=== PATIENT | female | born 1940 | race Caucasian/White ===

== ENCOUNTER 2018-05-21 16:10 | Inpatient (IN) | payer MEDICARE ==
[~2018-05-21] VITALS: Ht 165 cm; Wt 61.7 kg
[~2018-05-21 16:10] MED LIST: ALEN70 PO; ALLO300 PO; ALPR.25 PO; ASPI81CH PO; Adalat Cc30 MG PO; CARV6.25 PO; CEPH250A PO; CEPH500 PO; COLL250TO TOP; DIGO.125 PO; EXEN5PENI SQ; FURO40 PO; GABA300 PO; Humalog100 UNIT/3 SC; INSU100I6 SC; INSULANPEN SC; LEVEMIR FL100 UNIT/1 SC; LIRA0.6P; METO50 PO; METPRE4DP PO; Micro-K10 MEQ PO; Norco 5-325 Ta1 EACH PO; OXYACE5T PO; SILSUL1TC TOP; SPIR50 PO; SULTRIDS PO; TRAM50 PO; Valium5 MG PO; [UNRECOGNIZED DRUG - OTHER]; [UNRECOGNIZED DRUG - REMARK]
[2018-05-21 19:15] LABS: BASOPHILS ABSOLUTE AUTO 0.03 K/mm3 (0.00-0.23); BASOPHILS PERCENT AUTO 0 % (0-2); EOSINOPHILS ABSOLUTE AUTO 0.08 K/mm3 (0.00-0.68); EOSINOPHILS PERCENT AUTO 1 % (0-6); Hematocrit 31.2 % (33.0-51.0); Hemoglobin 10.5 g/dL (11.5-16.0); IMMATURE GRAN ABSOLUTE AUTO 0.09 K/mm3 (0.00-0.10); IMMATURE GRAN PERCENT AUTO 1 % (0-1); LYMPHOCYTES ABSOLUTE AUTO 1.96 K/mm3 (0.84-5.20); LYMPHOCYTES PERCENT AUTO 15 % (21-46); MONOCYTES PERCENT AUTO 6 % (4-13); Mean Corpuscular HGB 30.6 pg (26.0-34.0); Mean Corpuscular HGB Conc 33.7 g/dL (31.5-36.5); Mean Corpuscular Volume 91 fL (80-100); Mean Platelet Volume 8.9 fL (9.1-12.4); NEUTROPHILS ABSOLUTE AUTO 9.95 K/mm3 (1.96-9.15); NEUTROPHILS PERCENT AUTO 77 % (41-73); Platelet Count 419 K/mm3 (150-400); RDW Coefficient Variation 12.7 % (11.7-14.2); RDW Standard Deviation 41.1 fL (35.1-46.3); Red Blood Cell Count 3.43 M/mm3 (3.80-5.20); White Blood Cell Count 12.91 K/mm3 (4.00-11.30)
[2018-05-21 19:38] LABS: Creatinine, Blood 1.05 mg/dL (0.40-1.00); Potassium, Blood 3.7 mmol/L (3.5-5.5)
[2018-05-22 05:11] LABS: Hematocrit 31.3 % (33.0-51.0); Hemoglobin 10.4 g/dL (11.5-16.0); Mean Corpuscular HGB 30.6 pg (26.0-34.0); Mean Corpuscular HGB Conc 33.2 g/dL (31.5-36.5); Mean Corpuscular Volume 92 fL (80-100); Mean Platelet Volume 9.1 fL (9.1-12.4); Platelet Count 419 K/mm3 (150-400); RDW Coefficient Variation 12.7 % (11.7-14.2); RDW Standard Deviation 42.7 fL (35.1-46.3); White Blood Cell Count 11.05 K/mm3 (4.00-11.30)
[2018-05-22 05:41] LABS: Anion Gap 7 mmol/L (6-16); Blood Urea Nitrogen 23 mg/dL (8-24); Bun/Creatinine Ratio 21.7 (12.0-20.0); CO2, Blood 27 mmol/L (21-32); Calcium, Blood 8.6 mg/dL (8.5-10.1); Chloride, Blood 101 mmol/L (98-108); Creatinine, Blood 1.06 mg/dL (0.40-1.00); Glomerular Filtration Rate 54 (60-); Glucose, Blood 172 mg/dL (70-99); Potassium, Blood 3.4 mmol/L (3.5-5.5); Sodium, Blood 135 mmol/L (136-145)
[2018-05-22 05:50] LABS: Digoxin (Lanoxin) 0.13 ug/mL (0.80-2.00)
[2018-05-23 21:48] LABS: Vancomycin, Trough 8.4 ug/mL (5.0-10.0)
[2018-05-24] MEDS ORDERED: HYDR1TAB94 PO (11:14)
[2018-05-24] MEDS ORDERED: CEPH250A PO (11:14)
== END 2018-05-24 11:43 | disposition home or self-care (01) | DRG 256 ==
LOC: ER 16:10 → MEDS 17:23 → ER 19:49 → MEDS 19:49 → ENPENDDIS 05-24 09:51 → MEDS 05-24 11:43
PROVIDERS: Emergency Medicine; Internal Medicine; Podiatrist Foot & Ankle Surgery
PROC: 0Y6U0Z0 Detachment at Left 3rd Toe, Complete, Open Approach (ICD-10-PCS; 2018-05-23)
PROC: 0Y6S0Z0 Detachment at Left 2nd Toe, Complete, Open Approach (ICD-10-PCS; 2018-05-23)
PROC: 0Y6Q0Z3 Detachment at Left 1st Toe, Low, Open Approach (ICD-10-PCS; principal; 2018-05-23 12:00)
DX: E11.52 Type 2 diabetes mellitus with diabetic peripheral angiopathy with gangrene (principal); I96 Gangrene, not elsewhere classified; I50.22 Chronic systolic (congestive) heart failure; L97.528 Non-pressure chronic ulcer of other part of left foot with other specified severity; E11.621 Type 2 diabetes mellitus with foot ulcer; E11.65 Type 2 diabetes mellitus with hyperglycemia; E11.42 Type 2 diabetes mellitus with diabetic polyneuropathy; I25.5 Ischemic cardiomyopathy; I25.10 Atherosclerotic heart disease of native coronary artery without angina pectoris; F17.210 Nicotine dependence, cigarettes, uncomplicated; E78.5 Hyperlipidemia, unspecified; M10.9 Gout, unspecified; I25.2 Old myocardial infarction; Z91.81 History of falling; Z87.440 Personal history of urinary (tract) infections; Z79.899 Other long term (current) drug therapy; Z79.4 Long term (current) use of insulin; Z79.82 Long term (current) use of aspirin; Z88.8 Allergy status to other drugs, medicaments and biological substances; Z88.2 Allergy status to sulfonamides; Z95.0 Presence of cardiac pacemaker; Z90.710 Acquired absence of both cervix and uterus; Z90.49 Acquired absence of other specified parts of digestive tract; Z98.42 Cataract extraction status, left eye; Z98.41 Cataract extraction status, right eye; Z95.5 Presence of coronary angioplasty implant and graft; Z86.73 Personal history of transient ischemic attack (TIA), and cerebral infarction without residual deficits
CPT/HCPCS: 36415; 71046; 73630; 80048; 80162; 80202; 82947; 83036; 85025; 85027; 93005; 93010; 93922; 96365; 99284-25; J1100; J1650; J2250; J2405; J2543; J3010; J3370; J7120

== ENCOUNTER → 2018-06-22 | Outpatient (CLI) | payer MEDICARE ==
[~2018-06-22] MED LIST changes: +HYDR1TAB94 PO
== END | disposition home or self-care (01) ==
LOC: LAB SHORT 13:50 → LAB 13:50
DX: N18.3 Chronic kidney disease, stage 3 (moderate) (principal); N39.0 Urinary tract infection, site not specified
CPT/HCPCS: 87077; 87086; 87186

== ENCOUNTER 2018-09-19 14:54 | Inpatient (IN) | payer MEDICARE ==
[~2018-09-19] VITALS: Ht 165.1 cm; Wt 61.1 kg
[2018-09-19 18:27] LABS: Source, Urine Clean Catch
[2018-09-19 18:32] LABS: Appearance, Urine Hazy (Clear); Bilirubin, Urine Neg (Neg); Blood, Urine 2+ (Neg); Color, Urine Yellow (P-Yellow); Glucose Qualitative, Urine 4+ (Neg); Ketones, Urine 3+ (Neg); Leukocyte Esterase, Urine 3+ (Neg); Nitrite, Urine Neg (Neg); Protein, Urine 4+ (Neg); Urobilinogen, Urine NORM (Normal)
[2018-09-19 19:04] LABS: Bacteria Many /hpf; Squamous Epithelial Cells Few /hpf (Few); White Blood Cells, Urine 50-100 /hpf (0-5)
[2018-09-19 19:56] LABS: BASOPHILS ABSOLUTE AUTO 0.03 K/mm3 (0.00-0.23); BASOPHILS PERCENT AUTO 0 % (0-2); EOSINOPHILS ABSOLUTE AUTO 0.04 K/mm3 (0.00-0.68); EOSINOPHILS PERCENT AUTO 0 % (0-6); Hemoglobin 11.7 g/dL (11.5-16.0); IMMATURE GRAN ABSOLUTE AUTO 0.04 K/mm3 (0.00-0.10); IMMATURE GRAN PERCENT AUTO 0 % (0-1); LYMPHOCYTES ABSOLUTE AUTO 1.05 K/mm3 (0.84-5.20); LYMPHOCYTES PERCENT AUTO 11 % (21-46); MONOCYTES ABSOLUTE AUTO 0.71 K/mm3 (0.16-1.47); MONOCYTES PERCENT AUTO 7 % (4-13); Mean Corpuscular HGB 28.6 pg (26.0-34.0); Mean Corpuscular HGB Conc 31.6 g/dL (31.5-36.5); Mean Corpuscular Volume 91 fL (80-100); Mean Platelet Volume 9.7 fL (9.1-12.4); NEUTROPHILS ABSOLUTE AUTO 7.68 K/mm3 (1.96-9.15); NEUTROPHILS PERCENT AUTO 81 % (41-73); Platelet Count 255 K/mm3 (150-400); RDW Standard Deviation 56.1 fL (35.1-46.3); Red Blood Cell Count 4.09 M/mm3 (3.80-5.20); White Blood Cell Count 9.55 K/mm3 (4.00-11.30)
[2018-09-19 20:15] LABS: Alanine Aminotransfer (ALT/SGP 10 U/L (12-78); Albumin, Blood 2.7 g/dL (3.4-5.0); Albumin/Globulin Ratio 0.7 (0.8-1.8); Alk Phos 77 U/L (50-136); Anion Gap 14 mmol/L (6-16); Aspartate Aminotrans (AST/SGOT 8 U/L (12-37); Bilirubin, Total 0.7 mg/dL (0.1-1.0); Blood Urea Nitrogen 16 mg/dL (8-24); Bun/Creatinine Ratio 21.9 (12.0-20.0); CO2, Blood 22 mmol/L (21-32); Calcium, Blood 8.9 mg/dL (8.5-10.1); Chloride, Blood 94 mmol/L (98-108); Creatinine, Blood 0.73 mg/dL (0.40-1.00); Globulin, Blood 3.8 g/dL (2.2-4.0); Glomerular Filtration Rate >60 (60-); Glucose, Blood 342 mg/dL (70-99); Sodium, Blood 130 mmol/L (136-145); Total Protein, Blood 6.5 g/dL (6.4-8.2)
[2018-09-19 20:38] LABS: Digoxin (Lanoxin) 0.07 ug/mL (0.80-2.00)
[2018-09-20 05:15] LABS: BASOPHILS ABSOLUTE AUTO 0.03 K/mm3 (0.00-0.23); BASOPHILS PERCENT AUTO 0 % (0-2); EOSINOPHILS ABSOLUTE AUTO 0.08 K/mm3 (0.00-0.68); EOSINOPHILS PERCENT AUTO 1 % (0-6); Hemoglobin 11.5 g/dL (11.5-16.0); IMMATURE GRAN ABSOLUTE AUTO 0.04 K/mm3 (0.00-0.10); IMMATURE GRAN PERCENT AUTO 1 % (0-1); LYMPHOCYTES ABSOLUTE AUTO 1.61 K/mm3 (0.84-5.20); LYMPHOCYTES PERCENT AUTO 19 % (21-46); MONOCYTES ABSOLUTE AUTO 0.85 K/mm3 (0.16-1.47); MONOCYTES PERCENT AUTO 10 % (4-13); Mean Corpuscular HGB 28.8 pg (26.0-34.0); Mean Corpuscular HGB Conc 31.9 g/dL (31.5-36.5); Mean Corpuscular Volume 90 fL (80-100); NEUTROPHILS ABSOLUTE AUTO 6.07 K/mm3 (1.96-9.15); NEUTROPHILS PERCENT AUTO 70 % (41-73); RDW Coefficient Variation 16.8 % (11.7-14.2); RDW Standard Deviation 55.5 fL (35.1-46.3); White Blood Cell Count 8.68 K/mm3 (4.00-11.30)
[2018-09-20 05:17] LABS: Mean Platelet Volume 10.7 fL (9.1-12.4); Platelet Count 209 K/mm3 (150-400)
[2018-09-20 05:49] LABS: International Normalized Ratio 1.2; Prothrombin Time Results 12.2 Sec (9.7-11.5)
[2018-09-20 05:51] LABS: Anion Gap 12 mmol/L (6-16); Blood Urea Nitrogen 17 mg/dL (8-24); Bun/Creatinine Ratio 23.2 (12.0-20.0); CO2, Blood 22 mmol/L (21-32); Calcium, Blood 8.2 mg/dL (8.5-10.1); Chloride, Blood 99 mmol/L (98-108); Creatinine, Blood 0.73 mg/dL (0.40-1.00); Glomerular Filtration Rate >60 (60-); Glucose, Blood 374 mg/dL (70-99); Potassium, Blood 3.7 mmol/L (3.5-5.5); Sodium, Blood 133 mmol/L (136-145)
--- NOTE | 2018-09-20 07:52 | NUR ---
SHIFT SUMMARY PATIENT ARRIVED TO UNIT AT 2044. PATIENT DID NOT WANT TO BE ADMITTED AND WAS UNCOOPERATIVE TO CARE ATTEMPTS. STATED SHE JUST WANTED TO SLEEP. GOT UPSET AND BATTED AT THIS RN DURING ANY CARE ATTEMPTS (I.E. FLUSHING IV/INSULIN COVERAGE). PATIENT HAS ACTIVE NECROTIC APPEARING WOUNDS ON BLE LEFT>RIGHT. DRESSED WITH XEROFORM AND KERLEX. ONLY WEEPED DURING CLEANING BUT HAS ACTIVE BLEEDING ON RIGHT TOE. DID NOT BLEED THROUGH DRESSING OVERNIGHT. RN NOTIFIED OF PHOTOS IN CHART AND PODIATRY CONSULT REQUIRING DOC-DOC. HOSPITALIST NOTIFIED ALSO.
--- NOTE | 2018-09-20 17:51 | NUR ---
PT IS AOX3 WITH SOME CONFUSION AT TIMES THIS IS OFF AND ON. PT HAS BEEN COOPATIVE OF CARE AND RESTING IN HER BED ALL DAY. PT STATES SHE IS FEELING TIRED, BUT HAS NOT BEEN SLEEPING MUCH SHE DID THE FIRST PART OF THE SHIFT. NO DISTRESS NOTED AT THIS TIME.
--- NOTE | 2018-09-21 05:46 | NUR ---
SHIFT SUMMARY NO CHANGES IN ASSESSMENT AT THIS TIME. PT DID NOT VOID THIS SHIFT & REFUSED TO GET UP & TRY IN THE BATHROOM. WOUND DRESSINGS C/D/I. VSS. WILL CONTINUE TO MONITOR UNTIL TURNOVER IS COMPLETE.
[2018-09-21 16:44] LABS: Vancomycin, Trough 11.9 ug/mL (5.0-10.0)
--- NOTE | 2018-09-21 17:52 | NUR ---
SHIFT SUMMARY PT UP TO BATHROOM WITH 1 PERSON ASSIST USING FWW AND GAITBELT WHEN SHE ALLOWS IT TO BE PLACED. DIARRHEA NOTED. SPOKE WITH MD WITH NO NEW ORDERS. PT REPORTS HAVING IT FOR LAST 16 YEARS. FRIEND IN TO SEE TWICE TODAY WITH HER DOG. DRESSINGS CHANGED TO BOTH FEET.
--- NOTE | 2018-09-22 04:39 | NUR ---
VSS, AFEBRILE, A/O, 20G R UA. 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 C/O BEING "LONELY" AND CALLS OFTEN FOR NO REASON. INCONT AT TIMES, CAN BE NEEDY
--- NOTE | 2018-09-22 18:14 | NUR ---
SHIFT SUMMARY FOOT DRESSINGS REPLACED TO FEET AFTER US COMPLETED. PREMEDICATED FOR PROCEDURE AND TOLERATED WITHOUT PROBLEM. HAS MOSTLY SEROUS DRAINAGE FROM WOUNDS TO TOE SITES. POST OP BOOTS USED WITH AMBULATING. RECEIVED A SHOWER THIS MORNING AND TOLERATED WITHOUT PROBLEM. URGE INCONTINENCE OF URINE AND BLADDER. APPEARS MORE FORGETFUL TODAY THAN YESTERDAY. 1 PERSON ASSIST USING A FWW WITH AMBULATION. REQUIRES CUING WITH USE AND REMINDING FOR PROPER BODY MECHANICS. POSSIBLE PROCEDURE TOMORROW WITH INTERVENTIONAL RADIOLOGIST. DR LOCKHART REPORTS IN CONSULT NOTE THAT HE NOTIFIED MD. PT COOPERATIVE WITH CARE.
--- NOTE | 2018-09-23 04:38 | NUR ---
VSS, AFEBRILE, A/O, NPO AFTER MID FOR SURGICAL PROCEDURE ON L FOOT TODAY, AMB W/FWW, PACER, NECROTIC R FOOT, REFUSING CARE/MEDS AT TIMES, APATHETIC ABOUT HER NEEDS, PT MUST WEAR POST OP BOOTS WHEN OOB, CHRONIC DIARRHEA, AMPUATATIONS ON L FOOT ALREADY, SLOAN C/D/I
--- NOTE | 2018-09-23 04:52 | NUR ---
PT HAS REMOVED HER IV ACCESS. SHE STATES THAT SHE DID IT IN HER SLEEP. PT WILL NEED A NEW ACCESS FOR THE SURGICAL PROCEDURE TODAY. WILL REPORT TO ON-COMING SHIFT
--- NOTE | 2018-09-23 13:08 | NUR ---
TRANSFER FROM [facility] TECHNICIAN PATIENT TRANSFERED TO ICU POST PERIPHERAL STENTING OF SFA. SHEATH STILL IN PLACE. PATIENT IS DROWSY AND A LITTLE CONFUSED BUT ABLE TO REORIENT. GROIN SITE SOFT. BOTH FEET WRAPPED WITH KERLEX AND PITA WRAP. DR. NAVA REQUESTING DRESSINGS TO NOT BE REMOVED. PLAN TO DRAW PTT AND PULL SHEATH WHEN WITHIN RANGE. WILL CONTINUE TO MONITOR GROIN SITE. WILL NOTIFY PHYSICIANS OF ANY CHANGES. WILL ENCOURAGE PATIENT TO REST AT THIS TIME.
--- NOTE | 2018-09-23 14:30 | NUR ---
RECEIVED REPORT FROM GUNJAN, ENDOSCOPY RN, AND ASSUMED CARE OF PT. PATIENT IS ALERT, CONFUSED, HAS A CONTAINER OF FOOD EATING AND LIFTING HEAD. REMINDED PT THAT SHE SHOULD NOT BE LIFTING HEAD AND REMOVED THE FOOD. INSTRUCTED PT THAT SHE WILL BE ABLE TO EAT ONCE SHE RECOVERS FROM THE SURGICAL SITE AND IS ABLE TO SIT UP. SHEATH IN PLACE TO RIGHT GROIN, NO S/S OF BLEEDING OR HEMATOMA. INSTRUCTED PT TO REMAIN STILL WITHOUT LIFTING HEAD OR RIGHT LEG. BILATERAL FEET WRAPPED IN GUAZE DRESSING, NOTED PICTURES IN CHART. DR. NAVA AT BEDSIDE FOR EVALUATION AND ADVISED NO NEED TO REMOVE DRESSINGS WOUND CARE HAS BEEN CHANGING THEM. DR. SALGADO STATED THAT THREE STENTS WERE PLACED IN THE SFA OF THE RIGHT LEG TO KEEP THE VEIN OPEN FOR IMPROVED CIRCULATION. DOPPLER PULSES, UNABLE TO HEAR PULSES ON RIGHT SIDE, DR. NAVA AWARE. NEW ORDER FOR FENTANYL, GIVE A DOSE NOW IN PREPARATION FOR HEART CENTER COMING TO THE BEDSIDE TO PULL THE SHEATH SOON. LUNGS CLEAR, SATS 97% ROOM AIR. VSS. DELANEY IN PLACE DRAINING CLEAR YELLOW URINE. PT IS MILDLY CONFUSED, FORGETFUL, REQUIRES REMINDERS TO REMAIN IN STILL POSITION, HAS ATTEMPTED TO SIT UP IN BED. AWAITING PTT RESULTS TO DETERMINE IF SHEATH CAN BE PULLED.
--- NOTE | 2018-09-23 15:00 | NUR ---
HEART CENTER RN'S AT BEDSIDE TO PULL THE SHEATH IN THE RIGHT GROIN. NO S/S OF BLEEDING OR HEMATOMA.
--- NOTE | 2018-09-23 15:32 | NUR ---
HEART CENTER PULLED SHEATH AND HELD PRESSURE TO RIGHT GROIN FOR 20 MINUTES. THEY APPLIED GUAZE WITH TRANSPARENT DRESSING, NOTED SCANT AMOUNT OF BLOODY DRAINAGE ON GUAZE, NO S/S OF BLEEDING OR HEMATOMA.
--- NOTE | 2018-09-23 16:55 | NUR ---
NURSING SUMMARY RIGHT GROIN SITE CDI, NO S/S OF BLEEDING OR HEMATOMA. ELEVATED HOB TO 30 DEGREES. PATIENT FOLLOWS DIRECTIONS MOST OF THE TIME, ON OCCASSION PT WILL LIFT HER HEAD AND MOVE HER LEGS, FREQUENT EDUCATION REINFORCEMENT REGARDING COMPLIANCE WITH RECOVERY. C/O PAIN TO LEFT UPPER LEG, MEDICATED WITH FENTANYL WITH GOOD RELIEF. PATIENT STATES SHE IS HUNGRY.
--- NOTE | 2018-09-23 19:15 | NUR ---
ASSUMING CARE OF PT AT THIS TIME. PT REPORT RECEIVED AT BEDSIDE WITH OFFGOING NURSE, EVA CLEMONS. PT LAYING IN BED, WATCHING TELEVISION AND TALKING WITH STAFF UPON ENTERING THE ROOM. VS STABLE - SEE VS FS. PT DOES NOT APPEAR TO BE IN DISTRESS AT THIS TIME. WILL REVIEW PLAN OF CARE.
--- NOTE | 2018-09-23 19:30 | NUR ---
ASSESSMENT PT RESPONDS TO VERBAL STIMULI, A&O EXCEPT TO DATE/TIME (PT STATES YEAR IS 1978), SLIGHT CONFUSION, FORGETFUL, REPEATS QUESTIONS, SLOW TO RESPOND, FOLLOWS COMMANDS. SENSATION INTACT BUE'S. NUMBNESS BLE'S. HX OF NEUROPATHY. PT C/O WEAKNESS BLE'S. PT ASSISTS WITH TURNS. PER REPORT - PT USES WALKER AT HOME. PT C/O PAIN IN LEFT GROIN SITE AND LEG LEG - MEDICATED WITH PAIN MEDS PER PHYSICIAN'S ORDER / UTILIZED NONPHARM METHODS. FALL RISK PRECAUTIONS. LUNGS CLEAR, LOWER LOBES DIMINIHSED. SHALLOW BREATHING. PT ON RA. OXY SWAT >90% RR 14. DENIES SOB. NO COUGHING. SHALLOW BREATHING. AFEBRILE. NSR. HR 90'S. BP STBALE - SEE VS FS. STRONG RADIAL PULSE. FAINT TIBIAL PULSE. UNABLE TO DOPPLER PEDAL PULSES D/T BLE'S DRESSINGS. PER REPORT FROM DEONTE VELASQUEZ - DO NOT REMOVE BLE'S DRESSINGS THIS PM. SHEATH REMOVED THIS AM FORM R GROIN. R GROIN SITE - SMALL AMOUNTS OF SEROSANGEOUS FLUID, NO HEMATOMA, NO S/SX OF INFECTION, SLIGHT TENDERNESS WITH PALPATION, NO BRUISING. CONT TO EDUCATE PT ABOUT SHEATH REMOVAL PRECAUTIONS. SKIN WARM, PALE. ACTIVE BT X4 QUADRANTS. ABD SOFT, NONTENDER. NO N/V. NO BM. PT TOLERATES PO FLUIDS AND ADA DIET. F/C IN PLACE - YELLOW, CLEAR URINE NOTED. PIV X1 - SL. PT REFUSES ADDITION PIV INSERTION.
[2018-09-23 20:58] LABS: Creatinine, Blood 0.95 mg/dL (0.40-1.00); Vancomycin, Trough 11.8 ug/mL (5.0-10.0)
[2018-09-24 03:32] LABS: BASOPHILS ABSOLUTE AUTO 0.05 K/mm3 (0.00-0.23); BASOPHILS PERCENT AUTO 1 % (0-2); EOSINOPHILS ABSOLUTE AUTO 0.14 K/mm3 (0.00-0.68); EOSINOPHILS PERCENT AUTO 2 % (0-6); Hematocrit 33.3 % (33.0-51.0); Hemoglobin 10.5 g/dL (11.5-16.0); IMMATURE GRAN ABSOLUTE AUTO 0.03 K/mm3 (0.00-0.10); IMMATURE GRAN PERCENT AUTO 0 % (0-1); LYMPHOCYTES ABSOLUTE AUTO 1.25 K/mm3 (0.84-5.20); LYMPHOCYTES PERCENT AUTO 15 % (21-46); MONOCYTES ABSOLUTE AUTO 0.76 K/mm3 (0.16-1.47); MONOCYTES PERCENT AUTO 9 % (4-13); Mean Corpuscular HGB 28.3 pg (26.0-34.0); Mean Corpuscular HGB Conc 31.5 g/dL (31.5-36.5); Mean Corpuscular Volume 90 fL (80-100); NEUTROPHILS ABSOLUTE AUTO 5.97 K/mm3 (1.96-9.15); NEUTROPHILS PERCENT AUTO 73 % (41-73); Platelet Count 230 K/mm3 (150-400); RDW Coefficient Variation 16.8 % (11.7-14.2); RDW Standard Deviation 55.2 fL (35.1-46.3); Red Blood Cell Count 3.71 M/mm3 (3.80-5.20)
[2018-09-24 03:48] LABS: Bun/Creatinine Ratio 24.5 (12.0-20.0); Calcium, Blood 8.4 mg/dL (8.5-10.1); Creatinine, Blood 1.06 mg/dL (0.40-1.00); Potassium, Blood 4.6 mmol/L (3.5-5.5)
--- NOTE | 2018-09-24 04:25 | NUR ---
DR. WRIGHT INFORMED DR. WRIGHT OF AM LABS AND MEDICATION LIST. DR. WRIGHT ORDERED HUMALOG ANNELIESE AC/HS, HUMALOG ANNELIESE NOW, REPEAT RENAL PANEL AT 1200 ON 09/24/18 D/T DECREASING SODIUM, AND REPEAT CHEMBG 2 HR AFTER ADMINSITERING HUMALOG ANNELIESE NOW. WAITING FOR HUMALOG PEN FROM PHARMACY AT THIS TIME.
--- NOTE | 2018-09-24 04:34 | NUR ---
SHIFT ASSESSMENT NO ACUTE CHANGES NOTED T/O SHIFT. PT SLEPT APPROXIMATELY 3 HOURS T/O SHIFT. PT RESOPNDS TO VERBAL STIMULI, A&O EXCEPT TO DATE/TIME (PT STATES YEAR IS ), SLIGHT OCNFUSION, FORGETFUL, REPEATS QUESTIONS, SLOW TO RESPOND, FOLLOWS COMMANDS. SENSATIO INTACT BUE'S. NUMBNESS BLE'S. HX OF NEUROPATHY. NORMAL STRENGTH BUE'S. PT C/O WEAKNESS BLE'S. PT ASSISTS WITH TURNS. PT AMBULATES WITH 2P SBA. PT DENIES AMBULATING WITH WALKER OR CANE AT HOME. PT C/O INCREASING DIFFICULTIES COMPLETING ADL'S AT HOME. PT C/O PAIN IN LEFT GROIN SITE AND LEFT LEG T/O SHIFT. CONTINUED TO ASSESS FOR PAIN/DISCOMFORT AND MEDICATED WITH PAIN MEDS PER PHYSICIAN'S ORDER / UTILIZED NONPHARM METHODS. FALL RISK PRECAUTIONS. LUNGS CLEAR, LOWER LOBES DIMINISHED. SHALLOW BREATHING. PT ON RA. OXY SAT >90%. RR 12 TO 20'S. DENIES SOB. NO COUGHING. AFEBRILE. NSR TO ST WITH BBB. HR 80'S TO 100'S. BP STABLE - SEE VS FS. STRONG RADIAL PULSES. FAINT TIBIAL AND PEDAL PULSES. PER REPORT - DID NOT REMOVE BLE'S DRESSING THIS SHIFT. SHEATH REMOVED YESTERDAY DAYSHIFT FROM R GROIN. R GROIN SITE - SMALL AMOUNTS OF SEROSANGEOUS FLUID, NO HEMATOMA, NO S/SX OF INJECTION, SLIGHT TENDERNESS WITH PALPATION, NO BRUISING. SKIN WARM, PALE. ACTIVE BT X4 QUADRANTS. ABD SOFT, NONTENDER. NO N/V. NO BM. PT TOLERATES PO FLUIDS AND ADA DIET. F/C IN PLACE - YELLOW, CLEAR URINE NOTED. PIV X1 - SL. PT REFUSES ADDITIONAL PIV INSERTION. PLACED SEVERAL MEPILEX DRESSING TO EXTREMETIES D/T PT PICKING AT SCABS. CONT TO EDUCATE PT ABOUT PICKINGS AT SCABS, BUT PT CONT TO PICK AT SCABS. WILL CONT TO MONITOR PT AND WILL PROVIDE BEDSIDE REPORT TO ONCOMING NURSE THIS AM.
--- NOTE | 2018-09-24 07:30 | NUR ---
ASSUMED CARE OF PATIENT; SEE ASSESSMENT FOR DETAILS. LUNGS CLEAR; DECREASED IN BASES. APPEARS ALERT/COOPERATIVE AT THIS TIME; ORIENTED TO SELF AND PERSON AND PLACE; SHORT TERM MEMORY SOMEWHAT LIMITED; SL. CONFUSED AT TIMES. DELANEY TO GRAVITY AND DRAINING CLEAR, YELLOW URINE. OVERALL STATUS IMPROVED. LE'S REMAIN PAINFUL TO TOUCH ETC. CBG READING REQUIRED 4U OF NOVOLOG AND WILL RECEIVE ROUTINE LANTUS DOSE. APPETITE FAIR; NO GI UPSET.
--- NOTE | 2018-09-24 09:40 | NUR ---
DR. RONDON HERE; SEE ORDERS.
--- NOTE | 2018-09-24 10:00 | NUR ---
VISITORS; COOPERATIVE. UP TO BEDSIDE COMMODE WITH 1 PERSON ASSIST., HAD LARGE SOFT, BROWN-FORMED STOOL. VERY SLOW WITH GETTING TO DANGLE POSITION AND IN/OUT OF BED; DISLIKES ASSIST. FROM STAFF, BUT WILL ACCEPT IT WHEN NECESSARY.
--- NOTE | 2018-09-24 12:00 | NUR ---
CBG 240'S; COVERED PER MEDIUM SLIDING SCALLE. APPETITE LIMITED.
[2018-09-24 12:49] LABS: Albumin, Blood 2.2 g/dL (3.4-5.0); Anion Gap 9 mmol/L (6-16); Blood Urea Nitrogen 25 mg/dL (8-24); Bun/Creatinine Ratio 21.9 (12.0-20.0); CO2, Blood 24 mmol/L (21-32); Calcium, Blood 8.6 mg/dL (8.5-10.1); Chloride, Blood 97 mmol/L (98-108); Creatinine, Blood 1.14 mg/dL (0.40-1.00); Glomerular Filtration Rate 49 (60-); Glucose, Blood 254 mg/dL (70-99); Phosphorus, Blood 3.5 mg/dL (2.5-4.9); Potassium, Blood 4.1 mmol/L (3.5-5.5); Sodium, Blood 130 mmol/L (136-145)
--- NOTE | 2018-09-24 15:35 | NUR ---
REPORT GIVEN TO DEONTE ROBLES; PATIENT TO TRANSFER TO ROOM 339 (MEDICAL WITH NO TELEMETRY).
--- NOTE | 2018-09-24 16:00 | NUR ---
TRANSFERRED TO MEDICAL FLOOR, ROOM 339, VIA BED; BELONGINGS, MEDS., AND CHART WITH PATIENT. ZONING ENGINEER TRANSPORTED PATIENT; NO ACUTE C/O.
--- NOTE | 2018-09-24 16:39 | NUR ---
PATIENT TRANSFER THE PATIENT WAS TRANSFERRED FROM THE ICU TO THE MEDICAL FLOOR, TO ROOM #339 AT 1610. THE ICU NURSECALLED REPORT BEFORE THE PATIENT WAS TRANSFERRED TO THE FLOOR. THE PATIENT IS A&O TO SELF, A ONE PERSON ASSIST. THE PATIENT COMPLAINED OF BEING COLD AND REQUESTED A WARM BLANKET. THE PATIENT IS RESTING AT THIS TIME WATCHING WATCHING TV, WILL CONTINUE TO MONITOR.
--- NOTE | 2018-09-25 00:07 | NUR ---
CBG 74; LANTUS 15 UNITS EVENING 21:00 DOSE HELD PER HOSPITALIST . WILL CONTINUE TO MONITOR.
--- NOTE | 2018-09-25 04:19 | NUR ---
SHIFT SUMMARY PATIENT HAS LANTUS BID. CBG 74 AND EVENING 21:00 LANTUS 15 UNIT DOSE HELD PER HOSPITALIST DR. RICHARDS. NOTE, CBG'S DECREASED T/O THE DAY. AXOX 3 AND SBA TO BSC. PIV REMAINS INTACT. IV ABX INFUSED. DELANEY PATENT AND DRAINING. DENIES PAIN, SOB, AND N/V. VSS/AFEBRILE. BED IN LOWEST POSITION. CALL LIGHT IN REACH. WILL CONTINUE TO MONITOR UNTIL DAY SHIFT NURSE ASSUMES CARE.
[2018-09-25 07:56] LABS: BASOPHILS ABSOLUTE AUTO 0.05 K/mm3 (0.00-0.23); BASOPHILS PERCENT AUTO 1 % (0-2); EOSINOPHILS ABSOLUTE AUTO 0.14 K/mm3 (0.00-0.68); EOSINOPHILS PERCENT AUTO 2 % (0-6); Hematocrit 33.3 % (33.0-51.0); Hemoglobin 10.3 g/dL (11.5-16.0); IMMATURE GRAN ABSOLUTE AUTO 0.06 K/mm3 (0.00-0.10); IMMATURE GRAN PERCENT AUTO 1 % (0-1); LYMPHOCYTES ABSOLUTE AUTO 1.53 K/mm3 (0.84-5.20); LYMPHOCYTES PERCENT AUTO 19 % (21-46); MONOCYTES ABSOLUTE AUTO 1.07 K/mm3 (0.16-1.47); MONOCYTES PERCENT AUTO 13 % (4-13); Mean Corpuscular HGB 27.7 pg (26.0-34.0); Mean Corpuscular HGB Conc 30.9 g/dL (31.5-36.5); Mean Corpuscular Volume 90 fL (80-100); Mean Platelet Volume 10.4 fL (9.1-12.4); NEUTROPHILS ABSOLUTE AUTO 5.34 K/mm3 (1.96-9.15); NEUTROPHILS PERCENT AUTO 65 % (41-73); Platelet Count 230 K/mm3 (150-400); RDW Coefficient Variation 16.9 % (11.7-14.2); Red Blood Cell Count 3.72 M/mm3 (3.80-5.20); White Blood Cell Count 8.19 K/mm3 (4.00-11.30)
[2018-09-25 08:07] LABS: Calcium, Blood 8.7 mg/dL (8.5-10.1); Creatinine, Blood 1.1 mg/dL (0.40-1.00); Potassium, Blood 4.1 mmol/L (3.5-5.5)
--- NOTE | 2018-09-25 13:25 | NUR ---
SHE HAS BEEN MEDICATED X2 THIS SHIFT SO FAR WITH TRAMADOL FOR PAIN IN HER BACK AND MOSTLY IN HER L GROIN AND THIGH. HER R GROIN ANGIO SITE IS WITHOUT A DRESSING. IT IS WNL, NO HEMATOMA. I CHANGED DRESSINGS ON BITH FEET. SEE WOUND CARE ASSESSMENT. SHE TOLERATED IT WELL. RHETT WAS DC'D AT 1145 PER HER REQUEST. URINE WAS CLOUDY. SHE HAD URGENT INCONTINENT STOOL THIS AM. SHE HAS WALKED TO THE BATHROOM X2 WITH ASSIST. CBG'S VARIED, 87 AND 252.
--- NOTE | 2018-09-25 17:48 | NUR ---
SHE IS VOIDING WELL SINCE DELANEY DC'D JUST BEFORE LUNCH. THE FIRST VOID WAS UNMEASURED BECAUSE WE DID NOT HAVE A VOID HAT IN THE TOILET YET. SHE SAYS HER L LEG PAIN WAS BETTER IMMEDIATELY AFTER THE STENT WAS PLACED THEN RETURNED BACK TO HOW IT WAS BEFORE. TRAMADOL HELPS. CBG'S CLIMBED THE DAY PROGRESSED. SS WAS DECREASED THIS AM. VSS. DRESSINGS CHANGED ON BOTH FEET THIS AM.
[2018-09-25 21:34] LABS: Vancomycin, Trough 21.2 ug/mL (5.0-10.0)
--- NOTE | 2018-09-25 22:40 | NUR ---
CRITICAL VANCO TROUGH RECIEVED CALL FROM LAB REPORTING CRITICAL HIGH VANCO TROUGH OF 21.2. REPORTED HIGH TROUGH TO PHARMACIST WHO SAID THEY WILL HOLD PT'S 2200 DOSE OF VANCOMYCIN.
--- NOTE | 2018-09-26 05:18 | NUR ---
SUMMER COUNSELOR SUMMARY NO ACUTE CHANGES THIS SHIFT. PT AAOX4 AND COOPERATIVE WITH CARE. VERY PLEASANT. PT DENIES PAIN ON WOUND SITES OF BILATERAL FEET. DRESSINGS C/D/I. 2200 DOSE OF VANCO HELD DUE TO CRITICAL HIGH VANCO TROUGH; PHARMACIST AWARE. PER DAY SHIFT RN PT HAD SEVERAL HEAVY VOIDS DURING DAY SHIFT AFTER DELANEY CATH WAS REMOVED. PT HAS NOT HAD A VOID THIS SHIFT, HOWEVER BLADDER SCAN SHOWED JUST OVER 200 ML. PT STATES SHE USUALLY VOIDS LATER IN THE MORNING AFTER SHE WAKES UP AND THAT IT'S "NORMAL FOR ME TO NOT PEE THROUGH THE NIGHT". NO COMPLAINTS FROM THE PT. VSS, WILL CONTINUE TO MONITOR.
[2018-09-26 05:39] LABS: Vancomycin, Random 17.6 ug/mL
--- NOTE | 2018-09-26 13:51 | NUR ---
SHE IS A LITTLE CONFUSED TODAY. I DID NOT NOTICE CONFUSION YESTERDAY. SHE APPEARS PALE AND FRAGILE. SHE PICKS AT HER SKIN. SHE SAYS SHE CANNOT HELP HERSELF. THE FOAM BANDAGE IS STILL ON HER R LEG NEAR HER KNEE. BOTH FOOT DRESSINGS CLEAN AND INTACT. SHE HAS BEEN NPO SINCE 844 FOR HEART CENTER. SHE IS SUPPOSE TO HAVE STEP 2 OF HER PERIPHERAL STENTING TODAY. LAST CBG 176. HER SON IS HERE FROM [facility]. THE CARE MANAGERS SPOKE WITH KIRA AND THE PATIENT.
--- NOTE | 2018-09-26 15:14 | NUR ---
AND JUST ROUNDED ON HER WITH SON AT BEDSIDE. SHE HAS AGREED TO REHAB WHEN DISCHARGED. TO [facility] NOW VIA BED. NO CHANGES.
--- NOTE | 2018-09-26 19:38 | NUR ---
Arrival: Pt arrived to unit from ED at approx 1740. VSS. In no apparent sign of distress. Pt is confused. Denies any pain. Pt attempting to move L leg - secured leg w/linen to minimize movement of L leg. Pt calls appropriately. On RA. Breathing e/u. Denies SOB or cough. Denies any n/t or n/v. Bilat lower extremities wrapped with cast wrap and isabella wrap - dressings changed today per med floor RN. Pedal pulses just barely palpable. L groin access site - no s/sx of bleed or hematoma. Bed alarm on. Pt denies any further questions, complaints or requests at this time. Report given to jose CLEMONS.
[2018-09-27 04:05] LABS: BASOPHILS ABSOLUTE AUTO 0.04 K/mm3 (0.00-0.23); BASOPHILS PERCENT AUTO 1 % (0-2); EOSINOPHILS ABSOLUTE AUTO 0.24 K/mm3 (0.00-0.68); EOSINOPHILS PERCENT AUTO 3 % (0-6); Hematocrit 30.7 % (33.0-51.0); Hemoglobin 9.4 g/dL (11.5-16.0); IMMATURE GRAN ABSOLUTE AUTO 0.04 K/mm3 (0.00-0.10); IMMATURE GRAN PERCENT AUTO 1 % (0-1); LYMPHOCYTES PERCENT AUTO 16 % (21-46); MONOCYTES ABSOLUTE AUTO 0.74 K/mm3 (0.16-1.47); MONOCYTES PERCENT AUTO 10 % (4-13); Mean Corpuscular HGB 27.7 pg (26.0-34.0); Mean Corpuscular HGB Conc 30.6 g/dL (31.5-36.5); Mean Corpuscular Volume 91 fL (80-100); Mean Platelet Volume 10.1 fL (9.1-12.4); NEUTROPHILS ABSOLUTE AUTO 5.39 K/mm3 (1.96-9.15); NEUTROPHILS PERCENT AUTO 71 % (41-73); Platelet Count 232 K/mm3 (150-400); RDW Coefficient Variation 16.8 % (11.7-14.2); RDW Standard Deviation 56.1 fL (35.1-46.3); Red Blood Cell Count 3.39 M/mm3 (3.80-5.20); White Blood Cell Count 7.65 K/mm3 (4.00-11.30)
[2018-09-27 04:29] LABS: Anion Gap 9 mmol/L (6-16); Blood Urea Nitrogen 19 mg/dL (8-24); Bun/Creatinine Ratio 20.9 (12.0-20.0); CO2, Blood 22 mmol/L (21-32); Calcium, Blood 8.3 mg/dL (8.5-10.1); Chloride, Blood 102 mmol/L (98-108); Creatinine, Blood 0.91 mg/dL (0.40-1.00); Glomerular Filtration Rate >60 (60-); Glucose, Blood 173 mg/dL (70-99); Sodium, Blood 133 mmol/L (136-145); Vancomycin, Random 12.6 ug/mL
--- NOTE | 2018-09-27 06:10 | NUR ---
SHIFT SUMMARY PT A&O X4. FAMILY AT BEDSIDE IN THE EVENING STATED "SHE'S MUCH MORE ALERT THAN SHE WAS." PT ON STRICT BEDREST BEGINNING OF SHIFT POST ANGIO. L GROIN SITE WNL, NO BLEEDING, NO HEMATOMA. PT TOOK OFF ORIGINALLY PLACED DRESSING, THIS NURSE PLACED NEW TRANSPARENT TAGADERM DRESSING OVER FEM ACCESS SITE W/ INSTRUCTIONS FOR PT TO KEEP DRESSING IN PLACE. MONITOR SHOWS NSR W/ 1ST DEGREE BLOCK, HR 70'S. LUNG SOUNDS CLEAR T/O, DIM IN BASES. SPO2 > 92% ON RA. PT CONTINENT OF URINE BEGINNING OF SHIFT, INCONTINENT OF BOWEL AND BLADDER LATER INTO THE EVENING. NATALY CARE AND ATTENDS PLACEMENT AND CHANGES PROVIDED. PT STATING "I'M SO EMBARASSED. I'VE NEVER DONE THIS BEFORE" AT TIME OF INCONTINENCE. BILAT FOOT WOUNDS CLEANSED AND REDRESSED THIS AM. WOUNDS IMPROVING. WILL CONTINUE TO MONITOR AND PROVIDE CARE UNTIL REPORT OFF TO DAY SHIFT RN.
--- NOTE | 2018-09-27 14:07 | NUR ---
1330 Dressings to both feet were changed. Serous drainage noted on old dressings. Photographic documentation before discharge done. All wounds of both feet were cleansed with skintegrity, and patted dry with sterile gauze. Xeroform vaseline gauze applied to open wounds of the dorsal surface of left foot, medial apect of the ball of left foot, and 2nd digit of the right foot. Blue mextel suprabsorbent non-adhesive dressings then applied over these aforementioned wounds and secured with kerlix. MT spandage was applied over kerlix and secured with Logan bandages. Surgical shoes were then put on in anticipation of wheelchair transport to [facility] at 1530 today. The pt denies any pain in her feet.
--- NOTE | 2018-09-27 15:23 | NUR ---
Telephone report given to David nurse at [facility] at this time.
== END 2018-09-27 15:38 | DRG 253 ==
LOC: ER 14:54 → MEDS 18:05 → ICUE 09-23 12:19 → MEDS 09-24 16:04 → PCU 09-26 17:25
PROVIDERS: Emergency Medicine; Family Medicine; Internal Medicine; Nurse Practitioner Acute Care; Pharmacist; ADMIT Hospitalist
PROC: 3E02340 Introduction of Influenza Vaccine into Muscle, Percutaneous Approach (ICD-10-PCS; 2018-09-19)
PROC: 047K34Z Dilation of Right Femoral Artery with Drug-eluting Intraluminal Device, Percutaneous Approach (ICD-10-PCS; principal; 2018-09-23)
PROC: B41F1ZZ Fluoroscopy of Right Lower Extremity Arteries using Low Osmolar Contrast (ICD-10-PCS; 2018-09-23)
DX: E11.51 Type 2 diabetes mellitus with diabetic peripheral angiopathy without gangrene (principal); I50.42 Chronic combined systolic (congestive) and diastolic (congestive) heart failure; E87.1 Hypo-osmolality and hyponatremia; M86.672 Other chronic osteomyelitis, left ankle and foot; N17.9 Acute kidney failure, unspecified; E11.621 Type 2 diabetes mellitus with foot ulcer; I25.2 Old myocardial infarction; Z95.5 Presence of coronary angioplasty implant and graft; Z66 Do not resuscitate; Z79.82 Long term (current) use of aspirin; E11.40 Type 2 diabetes mellitus with diabetic neuropathy, unspecified; Z89.422 Acquired absence of other left toe(s); Z89.412 Acquired absence of left great toe; Z23 Encounter for immunization; Z79.4 Long term (current) use of insulin; I25.5 Ischemic cardiomyopathy; Z86.73 Personal history of transient ischemic attack (TIA), and cerebral infarction without residual deficits; I25.10 Atherosclerotic heart disease of native coronary artery without angina pectoris; R53.1 Weakness; R19.7 Diarrhea, unspecified; I65.21 Occlusion and stenosis of right carotid artery; L97.522 Non-pressure chronic ulcer of other part of left foot with fat layer exposed; Z87.891 Personal history of nicotine dependence; Z91.14 Patient's other noncompliance with medication regimen; E11.65 Type 2 diabetes mellitus with hyperglycemia; E11.42 Type 2 diabetes mellitus with diabetic polyneuropathy
CPT/HCPCS: 36415; 37224; 37226; 37228; 37232; 73620; 75625; 75716; 75736; 76937; 80048; 80053; 80069; 80162; 80202; 81001; 82565; 82947; 83036; 83605; 85025; 85347; 85610; 85651; 86140; 87015; 87040; 87045; 87046; 87086; 87205; 87899; 90686; 93922; 96365; 96375; 97116; 97162; 97166; 97530; 97535; 99152; 99153; 99284-25; C1725; C1769; C1876; C1887; C1894; C2623; G0008; G8978; G8979; G8987; G8988; J0696; J1644; J1650; J2250; J3010; J3370; J7030; J7040; J7042; J7050; Q9967

== ENCOUNTER 2018-10-07 09:36 | Inpatient (IN) | payer MEDICARE ==
[~2018-10-07] VITALS: Ht 165.1 cm; Wt 65.1 kg
[2018-10-07 10:05] LABS: Calcium, Ionized (POC) 1.13 mmol/L (1.10-1.46); Chloride (POC) 99 mmol/L (98-108); Glucose (ISTAT POC) >700 mg/dL (70-99); Hemoglobin (POC) 12.2 g/dL (12.0-16.0); Sodium (POC) 134 mmol/L (135-148); Total CO2 (POC) 21 mmol/L (21-32)
[2018-10-07 10:34] LABS: BASOPHILS ABSOLUTE AUTO 0.01 K/mm3 (0.00-0.23); BASOPHILS PERCENT AUTO 0 % (0-2); EOSINOPHILS PERCENT AUTO 0 % (0-6); Hematocrit 35.6 % (33.0-51.0); Hemoglobin 10.7 g/dL (11.5-16.0); IMMATURE GRAN ABSOLUTE AUTO 0.07 K/mm3 (0.00-0.10); IMMATURE GRAN PERCENT AUTO 1 % (0-1); LYMPHOCYTES ABSOLUTE AUTO 0.69 K/mm3 (0.84-5.20); LYMPHOCYTES PERCENT AUTO 8 % (21-46); MONOCYTES ABSOLUTE AUTO 0.44 K/mm3 (0.16-1.47); MONOCYTES PERCENT AUTO 5 % (4-13); Mean Corpuscular HGB 27.1 pg (26.0-34.0); Mean Corpuscular HGB Conc 30.1 g/dL (31.5-36.5); Mean Corpuscular Volume 90 fL (80-100); Mean Platelet Volume 9.2 fL (9.1-12.4); NEUTROPHILS ABSOLUTE AUTO 7.58 K/mm3 (1.96-9.15); NEUTROPHILS PERCENT AUTO 86 % (41-73); Platelet Count 358 K/mm3 (150-400); RDW Standard Deviation 56.1 fL (35.1-46.3); Red Blood Cell Count 3.95 M/mm3 (3.80-5.20); White Blood Cell Count 8.79 K/mm3 (4.00-11.30)
[2018-10-07 10:56] LABS: Albumin, Blood 2.4 g/dL (3.4-5.0); Albumin/Globulin Ratio 0.6 (0.8-1.8); Bilirubin, Total 0.4 mg/dL (0.1-1.0); Bun/Creatinine Ratio 23.5 (12.0-20.0); Calcium, Blood 8.4 mg/dL (8.5-10.1); Creatinine, Blood 1.02 mg/dL (0.40-1.00); Globulin, Blood 3.9 g/dL (2.2-4.0); Potassium, Blood 3.5 mmol/L (3.5-5.5); Total Protein, Blood 6.3 g/dL (6.4-8.2)
[2018-10-07 10:57] LABS: Troponin I 0.516 ng/mL (0.000-0.040)
--- NOTE | 2018-10-07 13:26 | NUR ---
echocardiogram complete
[2018-10-07 15:56] LABS: Adenovirus F 40/41 Not Detected (NOT DETECT); Astrovirus Not Detected (NOT DETECT); Campylobacter Sp Not Detected (NOT DETECT); Cryptosporidium Not Detected (NOT DETECT); Cyclospora Cayetanensis Not Detected (NOT DETECT); E. Coli O157 Not Detected (NOT DETECT); Entamoeba Histolytica Not Detected (NOT DETECT); Enteroaggregative E. coli-EAEC Not Detected (NOT DETECT); Enteropathogenic E. coli-EPEC Not Detected (NOT DETECT); Enterotoxigenic E. coli-ETEC Not Detected (NOT DETECT); Giardia Lamblia Not Detected (NOT DETECT); Norovirus GI/GII Not Detected (NOT DETECT); Plesiomonas Shigelloides Not Detected (NOT DETECT); Rotavirus A Not Detected (NOT DETECT); Salmonella Sp Not Detected (NOT DETECT); Sapovirus Not Detected (NOT DETECT); Shiga Toxin-prod E. coli-STEC Not Detected (NOT DETECT); Shigella/Enteroin E. coli-EIEC Not Detected (NOT DETECT); Vibrio Cholerae Not Detected (NOT DETECT); Vibrio Sp Not Detected (NOT DETECT); Yersinia Enterocolitica Not Detected (NOT DETECT)
--- NOTE | 2018-10-07 19:34 | NUR ---
SHIFT SUMMARY- PT ADMITTED THROUGH THE ED FOR LOW BG, PT ALSO HAS ELEVATED TROPONIN, CEREAL TROPONINS ORDERED, REPEAT TROPONIN WAS ALMOST DOUBLE THE LEVEL OF THE FIRST, CALLED DR ARANGO, PLAN IS TO CTM AT THIS TIME, PT HAS AN ACID HENCE NO TELEMETRY. PT HAS HAD NO C/O CHEST PAIN, SHE STATED SHE ONLT HAS CHEST PAIN ON THE LEFT SIDE OF HER CHEST BEHIND HER BREAST, ONLY WHEN SHE COUGHS. PT IS WEARING O2 OFF AND ON, PT DOES NOT WEAR O2 AT BASELINE. PT ALERT AND ORIENTED, STATED SHE HAS HAD DIARRHEA FOR 16 YEARS. PT CAME FROM [facility] PER REPORT FROM ED. PT HAD SOME FAMILY VISIT FOR A BIT. PT HAS A GOOD SENSE OF HUMOR (PER RPORT FROM FAMILY). SHE JOKES AND LAUGHS OFTEN. SHE DOES HAVE FREQUENT LOOSE STOOLS AND STATED THAT THEY EMBARASS HER. PT STOOL SAMPLE WAS OBTAINED AND SENT TO THE LAB FOR ANALYSIS. PLACED PT IN CONTACT ISO. ADMIT ASSESSMENT COMPLETE.
[2018-10-07] MEDS ORDERED: ASCO500 PO (22:53)
[2018-10-07] MEDS ORDERED: CLOP75 PO (22:53)
[2018-10-07] MEDS ORDERED: Ferrous Sulfat325 M2 PO (23:01)
[2018-10-07] MEDS ORDERED: Lisinopril2.5 MG PO (23:06)
[2018-10-07] MEDS ORDERED: Hair, Skin & N1 EACH PO (23:07)
[2018-10-07] MEDS ORDERED: ZINC220 PO (23:08)
[2018-10-08 06:10] LABS: Bun/Creatinine Ratio 24.7 (12.0-20.0); Calcium, Blood 7.8 mg/dL (8.5-10.1); Creatinine, Blood 0.97 mg/dL (0.40-1.00); Potassium, Blood 3.4 mmol/L (3.5-5.5)
[2018-10-08 06:33] LABS: Troponin I 0.839 ng/mL (0.000-0.040)
--- NOTE | 2018-10-08 07:21 | NUR ---
SHIFT SUMMARY PT C/O PAIN IN UPPER THIGHS AND DR EVANS ORDERED OT ORDER OF TRAMADOL AND PT STATED SOME RELIEF. ELEVATED TROPS AND ZANE SITE SPECIALIST MADE AWARE. NO C/O CP. DR EVANS D/C IV FLUIDS DUE TO CRACKLES IN BASES. INCONT OF URINE AND STOOL. 3L O2 NC. WAS ABLE TO DOZE ON AND OFF T/O NIGHT BUT STATED SHE REALLY DIDN'T SLEEP MUCH.
--- NOTE | 2018-10-08 15:52 | NUR ---
TALKED TO ABOUT ; WHEEZING WITH BREATHING TREATMENTS NOT HELPING, RESPIRATIONS 36, USING ACCESSORY MUSCLES, C/O PAIN STOMACH AND CHEST. THOUGHT TREATMENT WOULD HELP CHEST PAIN, BUT DIDN'T. ORDER MORPHINE 1-4 MG Q 2-4 HOURS PRN
--- NOTE | 2018-10-08 19:29 | NUR ---
PATIENT ALERT AND ORIENTED, BUT VERY FORGETFUL. WILL ASK EVERYTIME THIS RN GOES IN "WHO I AM" AND WHEN TOLD WILL BRING UP PRIOR CONVERSATIONS. MEDICATED FOR PAIN AND AIR HUNGER WITH GOOD RESULTS. DRESSING TO LEFT FOOT POST TOES AMPUTATION NOT CHANGED IS DRY AND INTACT. PODIATRY FOLLOWING PATIENT. POWERGLIDE IN. DOES NOT ALWAYS USE CALL LIGHT. BED IN LOW POSITION. REPORT TO NIGHT RN
--- NOTE | 2018-10-09 05:57 | NUR ---
SUMMARY: ADMIT DAY 3 HYPOGLYCEMIA, CP, C.DIFF POSITIVE ON HOSITALIST SERVICE. VSS, AFEBRILE ON 3L O2 VIA NC BASELINE FLOWRATE. 1 EPISODE OF AIR HUNGER WITH PAIN DURING REPOSITIONING EFFECTIVELY RELIEVED WITH 1MG IV MORPHINE. LINE LAB DRAW THIS AM, CONTINUE ANTIBIOTIC THERAPY AND ENCOURAGE PULMONARY TOILETING.
[2018-10-09 06:13] LABS: BASOPHILS ABSOLUTE AUTO 0.03 K/mm3 (0.00-0.23); BASOPHILS PERCENT AUTO 1 % (0-2); EOSINOPHILS ABSOLUTE AUTO 0.07 K/mm3 (0.00-0.68); EOSINOPHILS PERCENT AUTO 1 % (0-6); Hematocrit 28.7 % (33.0-51.0); IMMATURE GRAN ABSOLUTE AUTO 0.01 K/mm3 (0.00-0.10); IMMATURE GRAN PERCENT AUTO 0 % (0-1); LYMPHOCYTES ABSOLUTE AUTO 0.88 K/mm3 (0.84-5.20); LYMPHOCYTES PERCENT AUTO 15 % (21-46); MONOCYTES ABSOLUTE AUTO 0.45 K/mm3 (0.16-1.47); MONOCYTES PERCENT AUTO 8 % (4-13); Mean Corpuscular HGB Conc 31.4 g/dL (31.5-36.5); Mean Corpuscular Volume 89 fL (80-100); Mean Platelet Volume 9.4 fL (9.1-12.4); NEUTROPHILS ABSOLUTE AUTO 4.46 K/mm3 (1.96-9.15); NEUTROPHILS PERCENT AUTO 76 % (41-73); Platelet Count 310 K/mm3 (150-400); RDW Coefficient Variation 16.8 % (11.7-14.2); RDW Standard Deviation 54.2 fL (35.1-46.3); Red Blood Cell Count 3.22 M/mm3 (3.80-5.20)
[2018-10-09 06:26] LABS: Bun/Creatinine Ratio 19.8 (12.0-20.0); Calcium, Blood 8.2 mg/dL (8.5-10.1); Creatinine, Blood 1.01 mg/dL (0.40-1.00); Potassium, Blood 3.4 mmol/L (3.5-5.5)
--- NOTE | 2018-10-09 12:03 | NUR ---
BLOOD SUGAR THIS AM AT BREAKFAST TIME THE PTS BS WAS REPORTED TO BE LOW @ 51, PT WAS GIVEN APPLEJUICE AND THEN BREAKFAST, ABOUT 45 MIN LATER THE PTS BS WAS RECHECKED AND WAS CRITICAL LOW AT 46, THE PT WAS GIVEN MORE SNACKS AND MORE APPLE JUICE IN WHICH SHE DID EAT, APROX 1/2 HR AFTER THAT HER BS WAS RECHECKED AT 21, A CALL WAS MADE TO DR. ARANGO AND AN AMP OF D50 WAS GIVEN, THE PT WAS 277 BS APROX 15 MIN LATER
--- NOTE | 2018-10-09 16:34 | NUR ---
PT A/O X2 WHILE AWAKE, PT REMAINED DROWSY T/O THE DAY WAS SLOW TO AWAKEN, PT HAS A WITHDRAWN LOOK/GAVE, THE PT WAS MEDICATED WITH TYLENOL X1 TODAY FOR PAIN ALL OVER PER THE PATIENT, THE PT WAS REPOSITIONED T/O THE DAY, THE PT HAD SEVERAL BLACK/MAROON COLORED, LIQUID STOOLS, WHEN AWAKE THE PT IS ABLE TO STATE HIS NEEDS, VISITOR WAS IN TO SEE THE PT TODAY, CALL LIGHT IN REACH BED IN THE LOW POSITION
--- NOTE | 2018-10-09 16:54 | NUR ---
PT IS A/OX3, PLEASANT AND COOPERATIVE, THE PT REMAINED BEDREST TODAY, DECLINED TO GET UP WITH THE THERAPIST TODAY, PT IS ON O2 @ 3L/MIN, EASILY SOB WITH ACTIVITY, PT HAS A HARSH UNPRODUCTIVE COUGH AT THIS TIME, THIS AM THE PTS BLOOD SUGAR WAS CRITICAL LOW THE PT WAS GIVEN SNACKS AND APPLE JUICE TO BRING IT UP, AFTER THE SNACK AND BREAKFAST HER BS CONTINUED TO DROP TO LOW 21, AN AMP OF D50 WAS GIVEN PER MD ORDERS, THE PT WAS MEDICATED FOR PAIN X1 SO FAR TODAY, A PRN BREATHING TX WAS GIVEN THIS AM, CALL LIGHT IN REACH, BED IN THE LOW POSITION
--- NOTE | 2018-10-10 03:29 | NUR ---
SHIFT SUMMARY PT SLEEPING DURING SHIFT REPORT. ADMITTED FOR HYPOGLYCEMIA AND IN CONTACT ISO FOR C-DIFF. PT INCONTINENT OF BOWEL AND BLADDER. SEVERAL BM'S THIS SHIFT. POSSIBLE D/C BACK TO FOR REHAB, PER REPORT. PT ON 2.5L O2; BASELINE 3L O2. PT REMOVING NC PERIODICALLY, SHE DOES NOT LIKE TO WEAR IT. PT ALSO SEEMS CONFUSED AND DISORIENTED WHEN TALKING TO HER. DENIES WEARING O2 AT HOME AND FORGETS THAT SHE IS IN THE HOSPITAL. DOES NOT REMEMBER WHO WE ARE STAFF AND SOMETIMES REFERS TO US A FRIEND OR FAMILY MEMEBER. PT HALLUCINATING EARLIER IN SHIFT. DRSG TO L FOOT SOILED. WOUND CLEANED AND NEW DRSG PLACED BY ARNAV CLEMONS. PIC'S TAKEN WELL. PT WOKE DURING THE NIGHT C/O LEG PAIN. MEDICATED PER EMAR. NATALY AREA BECOMING RED FROM STOOL AND URINE; CALAZIME LOTION APPLIED. LUNGS T/O COARSE, ESPECIALLY IN BASES. SKIN THIN, FRAGILE WITH SCATTERED SCABS. SLIGHT SWELLING TO LE'S; ELEVATED IN BED. CALL LT IN REACH. ABLE TO MAKE NEEDS KNOWN.
--- NOTE | 2018-10-10 17:02 | NUR ---
Initial Visit: Recieved consult for patient: needs help with advanced care planning related to her cardiac issues. History of cardiomyopathy with 20% EF, osteomyelitis, neuropathy, PVD, diabetes. Admitted for hypoglycemia. Pt is alert, oriented, talking with a friend in the room. With her permission (and her insistence that her friend stay) I tell her that I am in her room to discuss her future planning in regard to her health. She has me continue. I educate her on her CHF, and advise that her heart has worsened to a large degree since her last echo. She is dismissive of this, however, showed interest in filling out a POLST form. Friend states that he needs to go and leaves. Discussion with patient. Reviewed her comorbidities. Throughout this conversation she continues to deny that her problems are as bad as I am presenting them. I educate on hospice, and she does not want that "because I ain't dyin." She goes on to start crying and talking about her mother's . It was painful for her and still causes trauma. She has one son. She doesn't talk about him much, but says, "he is a good kid. Has problems like everyone else." She does express that when it comes to be her time to , she doesn't want her son to be making decisions. Reviewed POLST and advance directive forms. Since the adv dir is lengthy, she would like the POLST. This is very appropriate; POLST forms are to be filled out 1-2 years before end of life stage. She is currently a DNR. She belives antibiotics are okay, but does not want intubation or chest compressions. She is tired, and does not want to fill out the POLST tonight. I agree to come back the next day. During our visit, she is eating [employer]. Pt has a disconnect in her thinking concerning her heart failure and the swelling in her legs. She is complaining about the swelling. Educated her on sodium intake and the effect it has on blood pressure and swelling. She denies this, and continues licking her chips on both sides before eating them. She states that she waiting to hear it from the extruder operator multiple. Plan to return to the patient's room tomorrow to assist in filling out the POLST form. Called Dr. Edwards. There is no extruder operator multiple consult at this time, however he has been in touch with extruder operator multiple, per doctor. Reviewed that the patient does not want hospice. Recommend swallow eval. Pt kept coughing while eating chips. She was laying supine when I arrived, but I set her bed up and instructed that it is safer eating when sitting up. She also denies this and states that she has been doing this her entire life. Will remain available.
--- NOTE | 2018-10-10 17:41 | NUR ---
SHIFT SUMMARY PT AXO X3 THOUGH IS IRRITABLE AT TIMES. NURSE SUSPECTS ASPIRATION WITH EATING/DRINKING. DR ARANGO NOTIFIED. SWALLOW EVAL ORDERED. PHYSICAL THERAPY WORKED WITH PT, SEE NOTE. SPEECH THERAPY WAS NOT ABLE TO EVAL TODAY. VSS. IV PATENT AND SALINE LOCKED. PALLIATIVE CARE CONSULT TODAY, SEE NOTE. DRESSING CDI\ BED IN LOW POSITION, CALL LIGHT WITHIN REACH, BED ALARM ON
--- NOTE | 2018-10-11 03:01 | NUR ---
SHIFT SUMMARY NO ACUTE CHANGES TO PRESENT THIS SHIFT. PT HAS REMAINED INCONTINENT OF BOWEL AND BLADDER; IN CONTACT ISO FOR C-DIFF. RESPONDS VERY SLOWLY TO INSTRUCTIONS WHEN NEEDING TO TURN AND CHANGE. NO C/O LEG PAIN TONIGHT SHE DID SUN NIGHT. L FOOT TOES AMPUTATED WITH DRSG IN PLACE; C/D/I. L FOOT AND ANKLE MORE SWOLLEN THAN RIGHT. PT VERY WEAK AND DECONDITIONED. PER SHIFT REPORT, PT DID WORK SOME WITH PT YESTERDAY, THOUGH DOES NOT FOLLOW DIRECTIONS. CBG'S HAVE REMAINED STABLE THE PAST DAY OR SO. MEPILEX DRSG TO COCCYX. NATALY AREA REDNESS D/T INCONTINENCE. VISITOR IN TO SEE PT PRIOR TO HS. RESTED WELL THRU THE NIGHT TO PRESENT. CALL LT IN REACH.
--- NOTE | 2018-10-11 17:23 | NUR ---
SHIFT SUMMARY PT AXO TO SELF. CONFUSED AT TIMES AND NOT ABLE TO FOLLOW DIRECTIONS. VSS. IV PATENT AND SALINE LOCKED. PT COMPLAINED OF POSITIONAL PAIN IN HER COCCYX THAT WAS RELIEVED WITH REPOSITIONING. AND COMPLAINED OF PAIN IN LOWER RIBS WITH COUGHING. PT HAS COUGHING SPELLS IN WHICH SHE GETS ANXIOUS AND STATES SHES SCARED WHEN SHE COUGHS. SHE CONTINUES TO REFUSE O2 VIA NC AT THAT TIME THOUGH. COCCYX IS RED BUT BLANCHES, MEPILEX IN PLACE. PT POSITIONED OFF BOTTOM WELL. PT EMOTIONAL AND STATES THAT SHE IS LONELY. NURSE SPENT EXTENDED AMOUNT OF TIME IN PT ROOM UTILIZING THERAPEUTIC COMMUNICATION AND ACTIVE LISTENING. SWALLOW EVAL COMPLETED, SEE NOTE. PHYSICAL THERAPY ALSO WORKED WITH PT, SEE NOTE. PT'S BMS ARE SOFT FORMED. BED IN LOW POSITION, CALL LIGHT WITHIN REACH
--- NOTE | 2018-10-12 04:10 | NUR ---
SHIFT SUMMARY PT VERY WEAK AND DECONDITIONED, APPEARING MORE ILL TODAY THAN YESTERDAY. LUNGS T/O WITH COARSE CRACKLES AND RHONCHI THUR OUT. PT NOT TALKATIVE EITHER. REMAINS INCONTINENT OF BOWEL AND BLADDER. STOOLS ARE BECOMING VERY FORMED. PT HAD A NOTICEABLY FOUL SMELLING ODOR COMING FROM L FOOT WOUND. DRSG SATURATED AND REMOVED. LRG AMT OF YELLOW SLOUGH ON GREAT TOE AREA. WOUND CLEANED WITH SKIN INTEGRITY AND NEW DRSG APPLIED. NO CURRENT WOUND CARE ORDERS ON CHART. CHRG RN NOTIFIED. PT CO-OP WITH CARE. SOME CONFUSION NOTED AGAIN TONIGHT. CBG LOWER TONIGHT THAN PREVIOUS. PT NOT EATING MUCH TODAY. DENIED NEEDS. CALL LT IN REACH, BUT PT USUALLY JUST CALLS OUT WHEN NEEDING ASSIST.
--- NOTE | 2018-10-12 19:13 | NUR ---
PATIENT REFUSING TO GET OUT OF BED FOR PHYSICAL THERAPY TODAY. HAS MOMENTS OF CONFUSION WITH HALLUCINATIONS AND DELUSIONS. RN ABLE TO RE-ORIENT THE PATIENT EASILY. TAKING MEDICATIONS WHOLE WITH WATER. CALLS OUT FOR HELP, WILL NOT USE CALL LIGHT.
--- NOTE | 2018-10-13 06:21 | NUR ---
NOC SHIFT SUMMARY PT AAOX3, RESP EASY AND UNLOABORED. AGREEABLE WITH CARE. SLEPT MOST OF NIGHT. DID REQUEST ADDITIONAL BLANKETS, AFTER RECIEVING BLANKETS WENT TO SLEEP BANDAGES ON L FOOT CHANGED AND WOUND ASSESSED APPEARS PINK WITH SOME ESCHAR TISSUE, CAP REFILL PROMPT. NEW DRESSING PLACED WITH NONSTIC STERILE PAD.
[2018-10-13 12:23] LABS: Anion Gap 8 mmol/L (6-16); Blood Urea Nitrogen 17 mg/dL (8-24); Bun/Creatinine Ratio 19.5 (12.0-20.0); CO2, Blood 28 mmol/L (21-32); Calcium, Blood 8.4 mg/dL (8.5-10.1); Chloride, Blood 103 mmol/L (98-108); Creatinine, Blood 0.87 mg/dL (0.40-1.00); Glomerular Filtration Rate >60 (60-); Glucose, Blood 204 mg/dL (70-99); Potassium, Blood 3.9 mmol/L (3.5-5.5); Sodium, Blood 139 mmol/L (136-145)
--- NOTE | 2018-10-13 18:00 | NUR ---
PATIENT HAVING SOFT FORMED BOWEL MOVEMENTS. PATIENT SEEMS MORE ORIENTED TO ENVIRONMENT THAN SHE WAS YESTERDAY. COOPERATIVE WITH CARE. POSSIBLE DISCHARGE TO [facility] TOMORROW. PATIENT STATES SHE IS READY TO GO. WILL CONTINUE TO MONITOR
--- NOTE | 2018-10-14 04:33 | NUR ---
CLOTH COVERED HELMET PULLER SUMMARY NO ACUTE CHANGES THIS SHIFT. PT AAOX3 AND PLEASANT. STOOLS CONTINUE TO BE MORE FORMED. CONTINUING PO VANCOMYCIN. DENIES PAIN, N/V, SOB. PLAN FOR DC TO [facility] LATER TODAY. VSS, WILL CONTINUE TO MONITOR.
[2018-10-14] MEDS ORDERED: LISI5 PO (11:52)
[2018-10-14] MEDS ORDERED: SACC250C PO (11:53)
[2018-10-14] MEDS ORDERED: POLY500 PO (11:53)
[2018-10-14] MEDS ORDERED: ROPI.25 PO (11:54)
[2018-10-14] MEDS ORDERED: FIRVANQ50 MG/1 ML PO (11:55)
[2018-10-14] MEDS ORDERED: INSULANPEN SC (11:56)
--- NOTE | 2018-10-14 15:59 | NUR ---
REPORT CALLED TO MOOK AYALA NURSE, SOFY, CALLED FOR REPORT. PT IN STABLE CONDITION WITH STABLE VITAL SIGNS. TYLENOL GIVEN FOR HIP PAIN. SOFY STATED HE HAD NO FURTHER QUESTIONS ON THE PT. PT DRESSED & ATTENDS CLEAN FOR TRANSFER. WILL CONTINUE TO MONITOR UNTIL PT HAS BEEN PICKED UP.
--- NOTE | 2018-10-14 16:44 | NUR ---
PT DISCHARGED PT DISCHARGED AT 1640. PT WHEELED OUT VIA WHEELCHAIR BY [facility] AND TO BE TAKEN TO [facility]. REPORT ALREADY CALLED TO NURSE AT [facility]. NO CHANGES IN ASSESSMENT & VITALS SIGNS STABLE. PT EAGAR TO LEAVE.
== END 2018-10-14 16:44 | disposition home or self-care (01) | DRG 637 ==
LOC: ER 09:36 → MEDS 09:37 → ENPENDDIS 10-14 11:26 → MEDS 10-14 16:44
PROVIDERS: Emergency Medicine; ADMIT Hospitalist
DX: E11.649 Type 2 diabetes mellitus with hypoglycemia without coma (principal); I21.4 Non-ST elevation (NSTEMI) myocardial infarction; M86.9 Osteomyelitis, unspecified; I50.22 Chronic systolic (congestive) heart failure; A04.72 Enterocolitis due to Clostridium difficile, not specified as recurrent; E11.51 Type 2 diabetes mellitus with diabetic peripheral angiopathy without gangrene; I10 Essential (primary) hypertension; E11.69 Type 2 diabetes mellitus with other specified complication; I11.0 Hypertensive heart disease with heart failure; Z95.0 Presence of cardiac pacemaker; M10.9 Gout, unspecified; Z23 Encounter for immunization
CPT/HCPCS: 36415; 71046; 80047; 80048; 80053; 82947; 84484; 85014; 85025; 87507; 90686; 92526; 93005; 93010; 93306; 94640; 94667; 94760; 96361; 96374; 96375; 97110; 97163; 97530; 99285-25; C1751; G0008; G0378; G8996; G8997; G8998; J1940; J2270; J7042

== ENCOUNTER 2019-02-02 09:20 | Inpatient (IN) | payer MEDICARE ==
[~2019-02-02] VITALS: Ht 165.1 cm; Wt 50.0 kg
[~2019-02-02 09:20] MED LIST changes: +ASCO500 PO; +CLOP75 PO; -DIGO.125 PO; +FIRVANQ50 MG/1 ML PO; +Ferrous Sulfat325 M2 PO; +Hair, Skin & N1 EACH PO; +INSULANPEN INJ; +LANOXIN125 MCG PO; +LISI5 PO; +Lisinopril2.5 MG PO; +OMEPRAZOLE20 MG PO; +POLY500 PO; +ROPI.25 PO; +SACC250C PO; +ZINC220 PO
[2019-02-02] MEDS ORDERED: MIRT15 PO (09:36)
[2019-02-02] MEDS ORDERED: Florastor250 MG PO (09:38)
[2019-02-02 10:43] LABS: BASOPHILS ABSOLUTE AUTO 0.02 K/mm3 (0.00-0.23); BASOPHILS PERCENT AUTO 0 % (0-2); EOSINOPHILS ABSOLUTE AUTO 0.01 K/mm3 (0.00-0.68); EOSINOPHILS PERCENT AUTO 0 % (0-6); Hematocrit 33.5 % (33.0-51.0); Hemoglobin 10.5 g/dL (11.5-16.0); IMMATURE GRAN PERCENT AUTO 1 % (0-1); LYMPHOCYTES ABSOLUTE AUTO 2.19 K/mm3 (0.84-5.20); LYMPHOCYTES PERCENT AUTO 16 % (21-46); MONOCYTES ABSOLUTE AUTO 0.91 K/mm3 (0.16-1.47); MONOCYTES PERCENT AUTO 7 % (4-13); Mean Corpuscular HGB 28.5 pg (26.0-34.0); Mean Corpuscular HGB Conc 31.3 g/dL (31.5-36.5); Mean Platelet Volume 9.4 fL (9.1-12.4); NEUTROPHILS ABSOLUTE AUTO 10.34 K/mm3 (1.96-9.15); NEUTROPHILS PERCENT AUTO 76 % (41-73); Platelet Count 248 K/mm3 (150-400); RDW Standard Deviation 62.8 fL (35.1-46.3); Red Blood Cell Count 3.69 M/mm3 (3.80-5.20); White Blood Cell Count 13.57 K/mm3 (4.00-11.30)
[2019-02-02 10:45] LABS: Mean Corpuscular Volume 91 fL (80-100)
[2019-02-02 11:01] LABS: Albumin, Blood 3.1 g/dL (3.4-5.0); Albumin/Globulin Ratio 0.8 (0.8-1.8); Bilirubin, Total 0.5 mg/dL (0.1-1.0); Bun/Creatinine Ratio 19.6 (12.0-20.0); Calcium, Blood 9.9 mg/dL (8.5-10.1); Creatinine, Blood 2.35 mg/dL (0.40-1.00); Globulin, Blood 3.9 g/dL (2.2-4.0); Potassium, Blood 4.9 mmol/L (3.5-5.5)
[2019-02-02 11:48] LABS: Source, Urine Catheter
[2019-02-02 11:53] LABS: Bilirubin, Urine Neg (Neg); Blood, Urine 2+ (Neg); Glucose Qualitative, Urine Neg (Neg); Ketones, Urine 1+ (Neg); Leukocyte Esterase, Urine 3+ (Neg); Nitrite, Urine Neg (Neg); Protein, Urine 2+ (Neg); Urobilinogen, Urine NORM (Normal)
[2019-02-02 12:02] LABS: Color, Urine Yellow (P-Yellow)
[2019-02-02 12:03] LABS: Appearance, Urine Cloudy (Clear)
[2019-02-02 12:05] LABS: White Blood Cells, Urine 50-100 /hpf (0-5)
[2019-02-02 12:06] LABS: Bacteria Many /hpf; Squamous Epithelial Cells Many /hpf (Few)
[2019-02-02 12:07] LABS: Transitional Epithelial Cells Many /hpf (0-Rare)
[2019-02-02 12:15] LABS: Renal Epithelial Mod /hpf (0-Rare)
[2019-02-02 16:03] LABS: Digoxin (Lanoxin) 0.76 ug/mL (0.80-2.00)
--- NOTE | 2019-02-02 18:41 | NUR ---
SHIFT SUMMARY PT. ADMITTED TO MED FLOOR EARLY AFTERNOON. SHE IS AXO-PLACE AND PERSON. SHE IS RESISTANT TO WEARING HER OXYGEN. SHE IS IN NO DISTRESS BUT DOES APPEAR CONFUSED AT TIMES-COULD NOT REMEMBER HOW SHE WAS TRANFERED TO HER ROOM.
--- NOTE | 2019-02-02 18:46 | NUR ---
SHIFT SUMMARY PATIENT HAS BEEN MILDLY ABRASIVE WITH HER WORDS SINCE SHE HAS ARRIVED TO THE FLOOR. SHE SEEMS TO BE ALERT AND ORIENTED ALTHOUGH AT TIMES SHE SAYS PHRASES THAT ARE NOT CONCURRENT WITH CURRENT CONVERSATION. NO ACUTE CONCERNS, PATIENT DENIES ANY NEW PAIN. SHE FELL 2 DAYS AGO AT [facility]. ACCORDING TO [facility] SHE HAS NOT BEEN PARTICIPATING IN REHABILITATION AND HAS CONTINUED TO GROW WEAK. IN THE LAST 2 DAYS SHE HAS BEEN EATING LESS AND NOT FEELING WELL, TODAY SHE WAS NAUSEOUS AND WEAK, WELL NOT PRODUCING A LOT OF URINE. NORMALLY SHE IS CONTINENT, NO ACCIDENTS WITH US.
[2019-02-03 05:35] LABS: BASOPHILS ABSOLUTE AUTO 0.04 K/mm3 (0.00-0.23); BASOPHILS PERCENT AUTO 0 % (0-2); EOSINOPHILS ABSOLUTE AUTO 0.35 K/mm3 (0.00-0.68); EOSINOPHILS PERCENT AUTO 4 % (0-6); Hemoglobin 9.2 g/dL (11.5-16.0); IMMATURE GRAN ABSOLUTE AUTO 0.06 K/mm3 (0.00-0.10); IMMATURE GRAN PERCENT AUTO 1 % (0-1); LYMPHOCYTES ABSOLUTE AUTO 1.62 K/mm3 (0.84-5.20); LYMPHOCYTES PERCENT AUTO 16 % (21-46); MONOCYTES ABSOLUTE AUTO 1.01 K/mm3 (0.16-1.47); MONOCYTES PERCENT AUTO 10 % (4-13); Mean Corpuscular HGB 28.6 pg (26.0-34.0); Mean Corpuscular HGB Conc 31.7 g/dL (31.5-36.5); Mean Corpuscular Volume 90 fL (80-100); NEUTROPHILS ABSOLUTE AUTO 6.93 K/mm3 (1.96-9.15); NEUTROPHILS PERCENT AUTO 69 % (41-73); Platelet Count 226 K/mm3 (150-400); RDW Coefficient Variation 18.7 % (11.7-14.2); RDW Standard Deviation 61.1 fL (35.1-46.3); Red Blood Cell Count 3.22 M/mm3 (3.80-5.20); White Blood Cell Count 10.01 K/mm3 (4.00-11.30)
--- NOTE | 2019-02-03 06:07 | NUR ---
SHIFT SUMMARY PT VERY SLEEPY LETHARGIC. SHE WOULD NOT WAKE UP TO TAKE PO PILLS AT 2200 REFUSED THEM. INCONT OF URINE. CONFUSED ON WHERE SHE WAS, DIDN'T KNOW SHE WAS IN THE HOSPITAL SHE SAID. 2L O2 NC. SHE SLEPT T/O NIGHT. CALL LIGHT IN REACH.
[2019-02-03 06:10] LABS: Albumin, Blood 2.6 g/dL (3.4-5.0); Albumin/Globulin Ratio 0.7 (0.8-1.8); Bilirubin, Total 0.6 mg/dL (0.1-1.0); Bun/Creatinine Ratio 23.8 (12.0-20.0); Creatinine, Blood 1.64 mg/dL (0.40-1.00); Globulin, Blood 3.5 g/dL (2.2-4.0); Total Protein, Blood 6.1 g/dL (6.4-8.2)
--- NOTE | 2019-02-03 10:02 | NUR ---
0810 ENTERED ROM PT APPEARED TO BE SLEEPING, ARROUSED WITH VERBAL STIMULI, ALTHOUGH QUICKLY CLOSED EYES. PT WAS ASKED IF SHE WAS JUST TIRED, PT KNODDED HEAD YES. 0950 ORACLE ERP DEVELOPER REPORTED THAT PT IS ALERT WITH EYES OPEN AFTER BED BATH. ENTERED ROOM, PT LAYING IN BED WITH EYES OPEN. ATTEMPTED TO ASK PT QUESTIONS; NAME, BIRTHDAY, PLACE, PAIN. PT ONLY NODDED HEAD Y/N. PT ASKED WHY SHE IS NOT SPEAKING, PT SHRUGGED SHOULDERS. PT DID NOD HEAD YES WHEN ASKED IF SHE WAS ABLE TO TALK, IF SHE KNEW HER NAME, WHERE SHE IS. UNABLE TO FULLY ASSESS PT SHE IS NOT PARTICIPATING WITH CONVERSATION. PT ASKED IF SHE WOULD TAKE HER AM MEDICATIONS, PT NODDED NO. WCTM.
--- NOTE | 2019-02-03 18:45 | NUR ---
SHIFT SUMMARY. PT LETHARGIC THIS AM, MORE ALERT AFTER BED BATH. PT WOULD NOT SPEAK TO THIS RN THIS AM. THIS AFTERNOON POST ROCEPHIN INFUSION, PT BECAME MORE COMPLIANT WITH CARE AND COMMUNICATING TO STAFF. CONFUSION HAS IMPROVED. PT DENIES SOB, ON RA BY END OF SHIFT. PT WITH ONE EPISODE OF NAUSEA WITHOUT VOMITTING, MANAGED WELL WITH CURRENT ORDERS. PT C/O PAIN TO BACK THIS AFTERNOON, MANAGED WELL WITH APAP. PT THEN C/O PAIN TO BACK APPROXIMATELY 4HRS LATER, NO MEDICATION AVAILABLE TO GIVEN, DR. BAE NOTIFIED, REVIEVED ORDER FOR ULTRAM 50MG PO, PT REPORTS GOOD RELIEF.
--- NOTE | 2019-02-04 05:41 | NUR ---
SHIFT SUMMARY PT SLEPT FAIR DURING THE NIGHT, MEDICATED X2 FOR PAIN. PT HAS BEEN CONFUSED TO WHERE SHE IS AT AND NEEDS FREQUENT REMINDERS. HAS BEEN SHORT WITH STAFF DURING THE NIGHT, BUT COOPERATIVE WITH CARES. NO ACUTE EVENTS OVERNIGHT, WILL CONTINUE TO MONITOR.
[2019-02-04] MEDS ORDERED: ACET325 PO (15:01)
[2019-02-04] MEDS ORDERED: CARV3.125 PO (15:02)
[2019-02-04] MEDS ORDERED: TRAM50 PO (15:03)
[2019-02-04] MEDS ORDERED: CEPH500 PO (15:04)
--- NOTE | 2019-02-04 16:54 | NUR ---
PT DISCHARGED AT 9120.
== END 2019-02-04 16:55 | disposition home or self-care (01) | DRG 871 ==
LOC: ER 09:20 → MEDS 13:01
PROVIDERS: Internal Medicine; ADMIT Internal Medicine
DX: A41.51 Sepsis due to Escherichia coli [E. coli] (principal); G92 Toxic encephalopathy; N17.0 Acute kidney failure with tubular necrosis; J15.9 Unspecified bacterial pneumonia; I13.0 Hypertensive heart and chronic kidney disease with heart failure and stage 1 through stage 4 chronic kidney disease, or unspecified chronic kidney disease; I50.42 Chronic combined systolic (congestive) and diastolic (congestive) heart failure; N18.4 Chronic kidney disease, stage 4 (severe); N12 Tubulo-interstitial nephritis, not specified as acute or chronic; R65.20 Severe sepsis without septic shock; Z86.73 Personal history of transient ischemic attack (TIA), and cerebral infarction without residual deficits; E11.22 Type 2 diabetes mellitus with diabetic chronic kidney disease; B96.20 Unspecified Escherichia coli [E. coli] as the cause of diseases classified elsewhere; Z95.0 Presence of cardiac pacemaker; Z79.4 Long term (current) use of insulin; Z95.810 Presence of automatic (implantable) cardiac defibrillator; I73.9 Peripheral vascular disease, unspecified; D63.1 Anemia in chronic kidney disease; K59.09 Other constipation; F41.8 Other specified anxiety disorders; M10.9 Gout, unspecified; Z66 Do not resuscitate; I25.10 Atherosclerotic heart disease of native coronary artery without angina pectoris; I25.2 Old myocardial infarction; Z95.5 Presence of coronary angioplasty implant and graft; E86.0 Dehydration
CPT/HCPCS: 36415; 51701; 70450; 76705; 80053; 80162; 81001; 82947; 83690; 85025; 87077; 87086; 87186; 96361; 96365; 99285-25; J0696; J2405; J7030; J7120

== ENCOUNTER → 2019-03-16 | Outpatient (CLI) | payer MEDICARE, OTHER ==
[~2019-03-16] MED LIST changes: +ACET325 PO; -ASPI81CH PO; +Aspir 8181 MG PO; +Augmentin 875-1 EACH PO; +CARV3.125 PO; +ESCITALOPRAM OXA5 MG PO; +FURO20 PO; +Florastor250 MG PO; +Mirtazapine7.5 MG PO; +PANT20 PO; +POTA10T PO; +TORSE20 PO
== END | disposition home or self-care (01) ==
LOC: EDSTATUS 14:18 → LAB RH 17:38
DX: A04.72 Enterocolitis due to Clostridium difficile, not specified as recurrent (principal); I10 Essential (primary) hypertension
CPT/HCPCS: 87493

== ENCOUNTER → 2019-05-28 | Outpatient (CLI) | payer MEDICARE, OTHER | END | disposition home or self-care (01) | LOC: PLD 08:24 → LAB SHORT 08:24 | DX: L03.032 Cellulitis of left toe (principal); M86.672 Other chronic osteomyelitis, left ankle and foot; M89.572 Osteolysis, left ankle and foot; L97.522 Non-pressure chronic ulcer of other part of left foot with fat layer exposed | CPT/HCPCS: 88305; 88311 ==

== ENCOUNTER 2019-07-14 23:10 | Inpatient (IN) | payer OTHER, MEDICARE ==
[~2019-07-14] VITALS: Ht 165.1 cm; Wt 59.0 kg
[~2019-07-14 23:10] MED LIST changes: -Augmentin 875-1 EACH PO; -ESCITALOPRAM OXA5 MG PO; -PANT20 PO; -POTA10T PO; -TORSE20 PO
[2019-07-14] MEDS ORDERED: ESCITALOPRAM OXA5 MG PO (23:22)
[2019-07-14] MEDS ORDERED: PANT20 PO (23:24)
[2019-07-15 03:47] LABS: Albumin, Blood 3.6 g/dL (3.4-5.0); Albumin/Globulin Ratio 0.8 (0.8-1.8); Bilirubin, Total 0.4 mg/dL (0.1-1.0); Bun/Creatinine Ratio 26.3 (12.0-20.0); Calcium, Blood 9.7 mg/dL (8.5-10.1); Creatinine, Blood 1.18 mg/dL (0.40-1.00); Globulin, Blood 4.3 g/dL (2.2-4.0); Potassium, Blood 4.8 mmol/L (3.5-5.5); Total Protein, Blood 7.9 g/dL (6.4-8.2)
[2019-07-15 05:29] LABS: BASOPHILS ABSOLUTE AUTO 0.04 K/mm3 (0.00-0.23); BASOPHILS PERCENT AUTO 0 % (0-2); EOSINOPHILS ABSOLUTE AUTO 0.51 K/mm3 (0.00-0.68); EOSINOPHILS PERCENT AUTO 3 % (0-6); Hematocrit 34.7 % (33.0-51.0); Hemoglobin 10.6 g/dL (11.5-16.0); IMMATURE GRAN ABSOLUTE AUTO 0.15 K/mm3 (0.00-0.10); IMMATURE GRAN PERCENT AUTO 1 % (0-1); LYMPHOCYTES ABSOLUTE AUTO 1.09 K/mm3 (0.84-5.20); LYMPHOCYTES PERCENT AUTO 7 % (21-46); MONOCYTES ABSOLUTE AUTO 0.84 K/mm3 (0.16-1.47); MONOCYTES PERCENT AUTO 6 % (4-13); Mean Corpuscular HGB 29.4 pg (26.0-34.0); Mean Corpuscular HGB Conc 30.5 g/dL (31.5-36.5); Mean Corpuscular Volume 96 fL (80-100); Mean Platelet Volume 9.4 fL (9.1-12.4); NEUTROPHILS ABSOLUTE AUTO 12.45 K/mm3 (1.96-9.15); NEUTROPHILS PERCENT AUTO 83 % (41-73); Platelet Count 298 K/mm3 (150-400); RDW Coefficient Variation 16.6 % (11.7-14.2); Red Blood Cell Count 3.61 M/mm3 (3.80-5.20); White Blood Cell Count 15.08 K/mm3 (4.00-11.30)
[2019-07-15 12:33] LABS: BASOPHILS ABSOLUTE AUTO 0.03 K/mm3 (0.00-0.23); BASOPHILS PERCENT AUTO 0 % (0-2); EOSINOPHILS ABSOLUTE AUTO 0.15 K/mm3 (0.00-0.68); EOSINOPHILS PERCENT AUTO 1 % (0-6); Hematocrit 28.7 % (33.0-51.0); Hemoglobin 8.9 g/dL (11.5-16.0); IMMATURE GRAN ABSOLUTE AUTO 0.07 K/mm3 (0.00-0.10); IMMATURE GRAN PERCENT AUTO 1 % (0-1); LYMPHOCYTES ABSOLUTE AUTO 1.39 K/mm3 (0.84-5.20); LYMPHOCYTES PERCENT AUTO 10 % (21-46); MONOCYTES ABSOLUTE AUTO 0.97 K/mm3 (0.16-1.47); MONOCYTES PERCENT AUTO 7 % (4-13); Mean Corpuscular HGB 30.5 pg (26.0-34.0); Mean Corpuscular Volume 98 fL (80-100); Mean Platelet Volume 9.6 fL (9.1-12.4); NEUTROPHILS ABSOLUTE AUTO 11.51 K/mm3 (1.96-9.15); NEUTROPHILS PERCENT AUTO 82 % (41-73); Platelet Count 247 K/mm3 (150-400); RDW Coefficient Variation 16.5 % (11.7-14.2); RDW Standard Deviation 59.9 fL (35.1-46.3); Red Blood Cell Count 2.92 M/mm3 (3.80-5.20); White Blood Cell Count 14.12 K/mm3 (4.00-11.30)
[2019-07-15 12:56] LABS: Bun/Creatinine Ratio 27.6 (12.0-20.0); Calcium, Blood 8.7 mg/dL (8.5-10.1); Creatinine, Blood 1.23 mg/dL (0.40-1.00); Potassium, Blood 5.1 mmol/L (3.5-5.5)
--- NOTE | 2019-07-15 19:36 | NUR ---
SHIFT SUMMARY: PATIENT ADMIT FROM ED THIS SHIFT. PATIENT ALERT; ORIENTED TO SELF; OCCASIONAL CONFUSION. NO C/O PAIN SINCE ARRIVAL ON MEDICAL FLOOR. MEDICAL HISTORY SIGNIFICANT FOR DM2, WA c STENT, PACEMAKER/DEFIB. IV ABX CONTINUING. REPORT GIVEN TO ONCOMING RN.
[2019-07-16 05:08] LABS: BASOPHILS ABSOLUTE AUTO 0.03 K/mm3 (0.00-0.23); BASOPHILS PERCENT AUTO 0 % (0-2); EOSINOPHILS ABSOLUTE AUTO 0.23 K/mm3 (0.00-0.68); EOSINOPHILS PERCENT AUTO 2 % (0-6); Hemoglobin 8.5 g/dL (11.5-16.0); IMMATURE GRAN ABSOLUTE AUTO 0.07 K/mm3 (0.00-0.10); IMMATURE GRAN PERCENT AUTO 1 % (0-1); LYMPHOCYTES PERCENT AUTO 17 % (21-46); MONOCYTES ABSOLUTE AUTO 1.19 K/mm3 (0.16-1.47); MONOCYTES PERCENT AUTO 12 % (4-13); Mean Corpuscular HGB 30.6 pg (26.0-34.0); Mean Corpuscular HGB Conc 31.5 g/dL (31.5-36.5); Mean Corpuscular Volume 97 fL (80-100); Mean Platelet Volume 9.5 fL (9.1-12.4); NEUTROPHILS ABSOLUTE AUTO 6.77 K/mm3 (1.96-9.15); NEUTROPHILS PERCENT AUTO 68 % (41-73); Platelet Count 199 K/mm3 (150-400); RDW Coefficient Variation 16.6 % (11.7-14.2); Red Blood Cell Count 2.78 M/mm3 (3.80-5.20); White Blood Cell Count 9.99 K/mm3 (4.00-11.30)
--- NOTE | 2019-07-16 05:17 | NUR ---
[employer]OR [employer] SUMMARY NO ACUTE CHANGES THIS SHIFT. PT AAOX2 WITH SOME OCCASIONAL CONFUSION/FORGETFULNESS. BED ALARM ON FOR SAFETY. ON 3L O2 VIA NC. RECIEVING IV ABX. PT HAS RESTED MAJORITY OF THE SHIFT. VSS, WILL CONTINUE TO MONITOR.
[2019-07-16 05:27] LABS: Bun/Creatinine Ratio 27.1 (12.0-20.0); Calcium, Blood 8.8 mg/dL (8.5-10.1); Creatinine, Blood 1.29 mg/dL (0.40-1.00); Potassium, Blood 4.7 mmol/L (3.5-5.5)
--- NOTE | 2019-07-16 16:42 | NUR ---
PATIENT IS A/O THIS EVENING. CONFUSED AT TIMES THIS AM. VSS, ON 3LO2 TO MAINTAIN SATS. ATTEMPTED TO WEAN O2, BUT PATIENT 87% ON 2LO2. 22G IV TO LFA WNL, NS AT TKO. CONTACT PRECAUTIONS FOR R/O C-DIF. PATIENT DID NOT HAVE A BM THIS SHIFT. PATIENT USES W/C AT BASELINE, CAN TRANSFER WITH A 1-2 ASSIST, BUT REPORTS FREQUENT FALLS AND IS VERY FEARFUL. ACHS BLOOD SUGARS. TOLERATING CARDIAC DIET. CALM AND COOPERATIVE WITH CARE, CALLS APPROPRIATELY FOR ASSISTANCE. PATIENT REFUSING LOVENOX INJECTIONS.
[2019-07-16 18:06] LABS: Source, Urine Voided
[2019-07-16 18:08] LABS: Appearance, Urine Cloudy (Clear); Bilirubin, Urine Neg (Neg); Blood, Urine 3+ (Neg); Color, Urine Yellow (P-Yellow); Glucose Qualitative, Urine Neg (Neg); Ketones, Urine Neg (Neg); Leukocyte Esterase, Urine 3+ (Neg); Nitrite, Urine Neg (Neg); Protein, Urine 2+ (Neg); Urobilinogen, Urine NORM (Normal)
[2019-07-16 18:59] LABS: Bacteria Few /hpf; Squamous Epithelial Cells Few /hpf (Few); White Blood Cells, Urine TNTC /hpf (0-5)
--- NOTE | 2019-07-17 05:49 | NUR ---
SHIFT SUMMARY NO ACUTE EVENTS OVERNIGHT. PATIENT TOOK MEDS WHOLE IN APPLESAUCE. PATIENT SLEPT THROUGH MAJORITY OF YARN REWINDER. NO BM. WILL CONTINUE TO MONITOR AND REPORT TO ON COMING SHIFT.
[2019-07-17 06:20] LABS: Bun/Creatinine Ratio 32.1 (12.0-20.0); Calcium, Blood 9.4 mg/dL (8.5-10.1); Creatinine, Blood 1.09 mg/dL (0.40-1.00); Potassium, Blood 4.3 mmol/L (3.5-5.5)
[2019-07-17 12:52] LABS: Digoxin (Lanoxin) 0.84 ug/mL (0.80-2.00)
[2019-07-17 15:48] LABS: Campylobacter Sp Not Detected (NOT DETECT)
[2019-07-17 15:49] LABS: Adenovirus F 40/41 Not Detected (NOT DETECT); Astrovirus Not Detected (NOT DETECT); Cryptosporidium Not Detected (NOT DETECT); Cyclospora Cayetanensis Not Detected (NOT DETECT); E. Coli O157 Not Detected (NOT DETECT); Entamoeba Histolytica Not Detected (NOT DETECT); Enteroaggregative E. coli-EAEC Not Detected (NOT DETECT); Enteropathogenic E. coli-EPEC Not Detected (NOT DETECT); Enterotoxigenic E. coli-ETEC Not Detected (NOT DETECT); Giardia Lamblia Not Detected (NOT DETECT); Norovirus GI/GII Not Detected (NOT DETECT); Plesiomonas Shigelloides Not Detected (NOT DETECT); Rotavirus A Not Detected (NOT DETECT); Salmonella Sp Not Detected (NOT DETECT); Sapovirus Not Detected (NOT DETECT); Shiga Toxin-prod E. coli-STEC Not Detected (NOT DETECT); Shigella/Enteroin E. coli-EIEC Not Detected (NOT DETECT); Vibrio Cholerae Not Detected (NOT DETECT); Vibrio Sp Not Detected (NOT DETECT); Yersinia Enterocolitica Not Detected (NOT DETECT)
--- NOTE | 2019-07-17 18:09 | NUR ---
PATIENT IS A/OX4 AND AMBULATES WITH FWW AND 1 ASSIST. C-DIFF CAME BACK NEGATIVE AND PATIENT NO LONGER IN ISOLATION. DENIES ANY NAUSEA THIS SHIFT, TOLERATING ADA/CARDIAC DIET. VSS, ON RA. 22G IV TO L FA WNL AND SL. DENIES ANY PAIN OR DISCOMFORT. PLAN IS FOR D/C TOMORROW BACK TO [facility].
--- NOTE | 2019-07-18 05:05 | NUR ---
SHIFT SUMMARY NO ACUTE EVENTS OVERNIGHT. PATIENT RESTED COMFORTABLY OVERNIGHT. 1 PERSON SBA WITH FWW TO BATHROOM. AAOX4. VSS. WILL CONTINUE TO MONITOR AND REPORT TO ONCOMING SHIFT.
[2019-07-18 05:06] LABS: Hematocrit 29.4 % (33.0-51.0); Hemoglobin 9.2 g/dL (11.5-16.0); Mean Corpuscular HGB 29.9 pg (26.0-34.0); Mean Corpuscular HGB Conc 31.3 g/dL (31.5-36.5); Mean Corpuscular Volume 96 fL (80-100); Platelet Count 250 K/mm3 (150-400); RDW Coefficient Variation 16.3 % (11.7-14.2); RDW Standard Deviation 56.1 fL (35.1-46.3); Red Blood Cell Count 3.08 M/mm3 (3.80-5.20); White Blood Cell Count 8.69 K/mm3 (4.00-11.30)
[2019-07-18 05:33] LABS: Bun/Creatinine Ratio 30.4 (12.0-20.0); Calcium, Blood 9.7 mg/dL (8.5-10.1); Creatinine, Blood 1.02 mg/dL (0.40-1.00); Potassium, Blood 3.8 mmol/L (3.5-5.5)
[2019-07-18] MEDS ORDERED: TORSE20 PO (12:20)
[2019-07-18] MEDS ORDERED: Augmentin 875-1 EACH PO (12:21)
[2019-07-18] MEDS ORDERED: POTA10T PO (12:21)
--- NOTE | 2019-07-18 16:55 | NUR ---
SHIFT SUMMARY- PT DISCHARGED TO [facility]. PT IS A 1PA TO THE BATHROOM. VITALS STABLE T/O THE SHIFT. PT IV DC'D PRIOR TO DISCHARGE. PT TAKEN VIA W/C TRANSPORT BACK TO [facility]. PT ALERT AND ORIENTED WITH NO S&S OF DISTRESS ON ROOM AIR AT THE TIME OF DISCHARGE.
== END 2019-07-18 14:05 | DRG 871 ==
LOC: ER 23:10 → ERHOLD 07-15 04:30 → MEDS 07-15 14:38 → ENPENDDIS 07-18 11:37 → MEDS 07-18 14:05
PROVIDERS: Internal Medicine; Physician Assistant; ADMIT Hospitalist
DX: A41.9 Sepsis, unspecified organism (principal); J96.01 Acute respiratory failure with hypoxia; G92 Toxic encephalopathy; I50.22 Chronic systolic (congestive) heart failure; Z79.82 Long term (current) use of aspirin; Z79.4 Long term (current) use of insulin; I25.2 Old myocardial infarction; E11.22 Type 2 diabetes mellitus with diabetic chronic kidney disease; K21.9 Gastro-esophageal reflux disease without esophagitis; M10.9 Gout, unspecified; F32.9 Major depressive disorder, single episode, unspecified; E11.51 Type 2 diabetes mellitus with diabetic peripheral angiopathy without gangrene; Z87.891 Personal history of nicotine dependence; N18.3 Chronic kidney disease, stage 3 (moderate); Z86.73 Personal history of transient ischemic attack (TIA), and cerebral infarction without residual deficits
CPT/HCPCS: 0097U; 36415; 71045; 80048; 80053; 80162; 81001; 82947; 83690; 83880; 84145; 85025; 85027; 87070; 87086; 87205; 92610; 96361; 96365; 96375; 97116; 97161; 97165; 97530; 97535; 99285-25; C9113; J0696; J1650; J2405; J7030; J7050

== ENCOUNTER 2019-08-19 11:14 | Inpatient (IN) | payer OTHER, MEDICARE ==
[~2019-08-19] VITALS: Ht 165.1 cm; Wt 53.6 kg
[~2019-08-19 11:14] MED LIST changes: +Augmentin 875-1 EACH PO; +ESCITALOPRAM OXA5 MG PO; -Humalog100 UNIT/3 SC; -INSULANPEN INJ; +NOVOLOG FL100 UNIT/1 SC; +PANT20 PO; +POTA10T PO; +TORSE20 PO
[2019-08-19 12:37] LABS: BASOPHILS ABSOLUTE AUTO 0.03 K/mm3 (0.00-0.23); BASOPHILS PERCENT AUTO 0 % (0-2); EOSINOPHILS ABSOLUTE AUTO 0.39 K/mm3 (0.00-0.68); EOSINOPHILS PERCENT AUTO 3 % (0-6); Hematocrit 37.9 % (33.0-51.0); Hemoglobin 11.9 g/dL (11.5-16.0); IMMATURE GRAN ABSOLUTE AUTO 0.07 K/mm3 (0.00-0.10); IMMATURE GRAN PERCENT AUTO 1 % (0-1); LYMPHOCYTES ABSOLUTE AUTO 1.61 K/mm3 (0.84-5.20); LYMPHOCYTES PERCENT AUTO 14 % (21-46); MONOCYTES ABSOLUTE AUTO 1.29 K/mm3 (0.16-1.47); MONOCYTES PERCENT AUTO 11 % (4-13); Mean Corpuscular HGB 30.4 pg (26.0-34.0); Mean Corpuscular HGB Conc 31.4 g/dL (31.5-36.5); Mean Platelet Volume 9.8 fL (9.1-12.4); NEUTROPHILS ABSOLUTE AUTO 8.19 K/mm3 (1.96-9.15); NEUTROPHILS PERCENT AUTO 71 % (41-73); Platelet Count 252 K/mm3 (150-400); RDW Coefficient Variation 16.2 % (11.7-14.2); RDW Standard Deviation 58.3 fL (35.1-46.3); Red Blood Cell Count 3.91 M/mm3 (3.80-5.20); White Blood Cell Count 11.58 K/mm3 (4.00-11.30)
[2019-08-19 12:39] LABS: Mean Corpuscular Volume 97 fL (80-100)
[2019-08-19 13:01] LABS: Albumin, Blood 3.1 g/dL (3.4-5.0); Albumin/Globulin Ratio 0.7 (0.8-1.8); Bilirubin, Total 0.2 mg/dL (0.1-1.0); Calcium, Blood 9.3 mg/dL (8.5-10.1); Creatinine, Blood 3.99 mg/dL (0.40-1.00); Globulin, Blood 4.4 g/dL (2.2-4.0); Potassium, Blood 4.9 mmol/L (3.5-5.5); Total Protein, Blood 7.5 g/dL (6.4-8.2); Troponin I 0.018 ng/mL (0.000-0.040)
[2019-08-19 13:15] LABS: Source, Urine Clean Catch
[2019-08-19 13:21] LABS: Bilirubin, Urine Neg (Neg); Blood, Urine 4+ (Neg); Glucose Qualitative, Urine Neg (Neg); Ketones, Urine Neg (Neg); Leukocyte Esterase, Urine 3+ (Neg); Nitrite, Urine Neg (Neg); Protein, Urine 3+ (Neg); Urobilinogen, Urine NORM (Normal)
[2019-08-19 14:04] LABS: Appearance, Urine Turbid (Clear); Color, Urine Yellow (P-Yellow)
[2019-08-19 14:09] LABS: White Blood Cells, Urine TNTC /hpf (0-5)
[2019-08-19 14:10] LABS: Bacteria Many /hpf; Squamous Epithelial Cells Rare /hpf (Few)
[2019-08-19 17:18] LABS: C-REACTIVE PROTEIN, EXT RANGE 8.16 mg/dL (0.000-0.300); Uric Acid, Blood 9.1 mg/dL (2.6-6.0)
--- NOTE | 2019-08-19 23:49 | NUR ---
BG 33 PT BG CRITICALLY LOW AT 33. PT BG PRIOR TO THIS DURING HIFT WAS 53. PT WAS GIVEN ORANGE JUICE, AND A FRUIT CUP BY DAY RN. SHE ALSO HAD A DINNER TRAY IN WHICH SHE DID NOT EAT. BG REPEATED AT 191, BG WAS 33. PT IS AWAKE ALERT AND ORIENTED AT HER BASELINE, AND IS ASYMPTOMATIC. ORANGE JUICE GIVEN, PT ALSO REQUESTED HOT COCOA. SOLEDAD ROGERS NP CALLED AND NOTIFIED. RECIVED ORDER FOR D50. D50 GIVEN, GLUCOSE RECHECKED AND MOOK TO 319. SOLEDAD L[place]ING[place]. SERVICE CAR DRIVER CHECKED BACK IN TO SEE HOW PT WAS DOING AROUND 2200. SHE WAS NOTIFIED OF HER CURRENT BG OF 319. NO ADDITIONAL ORDERS. WILL SPOT CHECK AT MIDNIGHT.
--- NOTE | 2019-08-20 00:12 | NUR ---
BG 425 BG 425, SOLEDAD ROGERS NP CALLED AND NOTIFIED. SHE STATES THATS OK. NO ADDIIONAL ORDERS AT THIS TIME.
[2019-08-20 05:09] LABS: BASOPHILS ABSOLUTE AUTO 0.04 K/mm3 (0.00-0.23); BASOPHILS PERCENT AUTO 0 % (0-2); EOSINOPHILS ABSOLUTE AUTO 0.33 K/mm3 (0.00-0.68); EOSINOPHILS PERCENT AUTO 3 % (0-6); Hematocrit 32.9 % (33.0-51.0); Hemoglobin 10.4 g/dL (11.5-16.0); IMMATURE GRAN ABSOLUTE AUTO 0.06 K/mm3 (0.00-0.10); IMMATURE GRAN PERCENT AUTO 1 % (0-1); LYMPHOCYTES ABSOLUTE AUTO 1.01 K/mm3 (0.84-5.20); LYMPHOCYTES PERCENT AUTO 10 % (21-46); MONOCYTES ABSOLUTE AUTO 1.04 K/mm3 (0.16-1.47); MONOCYTES PERCENT AUTO 11 % (4-13); Mean Corpuscular HGB 29.2 pg (26.0-34.0); Mean Corpuscular HGB Conc 31.6 g/dL (31.5-36.5); Mean Platelet Volume 10.5 fL (9.1-12.4); NEUTROPHILS ABSOLUTE AUTO 7.39 K/mm3 (1.96-9.15); NEUTROPHILS PERCENT AUTO 75 % (41-73); Platelet Count 250 K/mm3 (150-400); RDW Coefficient Variation 15.7 % (11.7-14.2); RDW Standard Deviation 53.7 fL (35.1-46.3); Red Blood Cell Count 3.56 M/mm3 (3.80-5.20); White Blood Cell Count 9.87 K/mm3 (4.00-11.30)
[2019-08-20 05:11] LABS: Mean Corpuscular Volume 92 fL (80-100)
[2019-08-20 05:32] LABS: Bun/Creatinine Ratio 23.3 (12.0-20.0); Calcium, Blood 8.8 mg/dL (8.5-10.1); Creatinine, Blood 2.53 mg/dL (0.40-1.00); Potassium, Blood 5.2 mmol/L (3.5-5.5)
--- NOTE | 2019-08-20 05:36 | NUR ---
SHIFT SUMMARY PT HAS RESTED ON AND OFF T/O THE NIGHT. PT HAS HAD ISSUES WITH HER BG THIS SHIFT. PT WAS HYPOGYLCEMIC AT 33, AND WAS TREATED PER ORDERS. HER BG THEN MOOK TO 425 AFTER INTERVENTIONS, WAS NOTIFIED OF THIS. THIS MORNING HER BG IS ELEVATED BY STABLIZING AND IS CURRENTLY AT 222. PT HAS BEEN ASYMPTOMATIC WITH THESE BG CHANGES. VITALS STABLE. PT HAD ULTRASOUND OF FOOT YESTERDAY. PT HAS ULCERATION OF LEFT FOUTH TOE. WOUND CLEANED AND DRESSED BY THIS RN AND PHOTOS TAKEN. PT IS SEVERELY DECONDITIONED, AND IS UNABLE TO USE HER LEGS TO STAND TO GET TO THE BSC. THREE STAFF MEMBERS AND A GAIT BELT ARE REQUIRED TO GET HER TO AND FROM THE COMMODE. PT RECEIVING IVF ORDERED. RESTFUL NIGHT OVERALL. BED IN LOWEST POSITION, CALL LIGHT WITHIN REACH. WILL CONTINUE TO MONITOR AND REPORT TO ONCOMING RN.
[2019-08-20] MEDS ORDERED: Loratadine10 MG PO (09:06)
--- NOTE | 2019-08-20 18:31 | NUR ---
PT. SITTING IN BED WATCHING TV AND FINISHING UP HER DINNER. PT. REFUSED COREG, STATING SHE IS ALLERGIC TO COREG, DOESNT KNOW WHY THE DOCTORS KEEP TRYING TO GIVE IT TO HER. P.T./O.T. WORKED WITH PT. TODAY. WITH FEMALE O.T. SHE SAID SHE DIDN'T KNOW WHERE SHE WASETC... WHEN WORKING WITH THE MALE P.T. SHE WAS VERY COOPERATIVE AND GOT RIGHT OUT OF BED AND KNEW WHERE SHE WAS AND WHERE SHE CAME FROM. PT. VERY CRANKY AND DOES NOT WANT TO TAKE MEDS.
[2019-08-21 05:06] LABS: Bun/Creatinine Ratio 26.9 (12.0-20.0); Calcium, Blood 9.6 mg/dL (8.5-10.1); Creatinine, Blood 1.6 mg/dL (0.40-1.00); Magnesium, Blood 1.5 mg/dL (1.6-2.4); Potassium, Blood 4.9 mmol/L (3.5-5.5)
--- NOTE | 2019-08-21 05:11 | NUR ---
SHIFT SUMMARY PT A/O BUT FORGETFUL AT TIMES. NO C/O PAIN. 1-2 PERSON ASSIST TO BSC BUT NOT GOOD AT FOLLOWING CUES. GENERALIZED WEAKNESS. SHE WAS ABLE TO SLEEP ON AND OFF T/O NIGHT. BED ALARM IN USE.
--- NOTE | 2019-08-21 06:53 | NUR ---
PER PREVIOUS RN, SHE SAID HAD TOLD HER TO D/C IV FLUIDS AFTER 500ML INFUSED.
[2019-08-21] MEDS ORDERED: CEPH500 PO (13:33)
[2019-08-21] MEDS ORDERED: ALBENDAZOLE200 MG PO (13:34)
[2019-08-21] MEDS ORDERED: AKWA Tears15 ML BOTHEYES (13:35)
[2019-08-21] MEDS ORDERED: ALLO100 PO (13:36)
[2019-08-21] MEDS ORDERED: Anti-Diarrheal2 MG PO (13:38)
[2019-08-21] MEDS ORDERED: Florastor250 MG PO (13:39)
[2019-08-21] MEDS ORDERED: POLY500 PO (13:39)
--- NOTE | 2019-08-21 15:01 | NUR ---
PT. TRANSFERRED TO [facility] VIA [employer] [facility]. TRIED TO CALL REPORT BUT NO ONE ANSWERED THE PHONE.
[2019-09-18] MEDS ORDERED: HYDHCL25 PO (21:48)
== END 2019-08-21 15:55 | disposition home or self-care (01) | DRG 683 ==
LOC: ER 11:14 → MEDS 16:07
PROVIDERS: Emergency Medicine; Nurse Practitioner Acute Care; ADMIT Internal Medicine
DX: N17.9 Acute kidney failure, unspecified (principal); N39.0 Urinary tract infection, site not specified; E87.1 Hypo-osmolality and hyponatremia; I50.22 Chronic systolic (congestive) heart failure; I13.0 Hypertensive heart and chronic kidney disease with heart failure and stage 1 through stage 4 chronic kidney disease, or unspecified chronic kidney disease; I25.10 Atherosclerotic heart disease of native coronary artery without angina pectoris; E11.51 Type 2 diabetes mellitus with diabetic peripheral angiopathy without gangrene; E11.22 Type 2 diabetes mellitus with diabetic chronic kidney disease; E11.621 Type 2 diabetes mellitus with foot ulcer; L97.529 Non-pressure chronic ulcer of other part of left foot with unspecified severity; N18.3 Chronic kidney disease, stage 3 (moderate); F32.9 Major depressive disorder, single episode, unspecified; K21.9 Gastro-esophageal reflux disease without esophagitis; Z66 Do not resuscitate; Z79.4 Long term (current) use of insulin; Z88.2 Allergy status to sulfonamides; Z88.8 Allergy status to other drugs, medicaments and biological substances; I25.2 Old myocardial infarction
CPT/HCPCS: 36415; 71046; 73620; 76770; 80048; 80053; 80061; 80162; 81001; 82947; 83735; 83880; 84100; 84443; 84484; 84550; 85025; 85651; 86140; 87077; 87086; 87186; 93005; 93010; 93922; 96374; 97110; 97162; 97166; 97530; 97535; 99285-25; C9113; J0696; J1644; J7030; J7799

== ENCOUNTER → 2019-08-23 | Outpatient (CLI) | payer OTHER ==
[~2019-08-23] MED LIST changes: +AKWA Tears15 ML BOTHEYES; +ALBENDAZOLE200 MG PO; +ALLERGY RELIEF180 MG PO; +ALLO100 PO; +Anti-Diarrheal2 MG PO; +BENADRYL25 MG PO; +CALCIUM 600 +1 EA11 PO; +DOCU100 PO; +FAMO40 PO; +HYDHCL25 PO; +HYDROCORTISON28.4 G2 TOP; +LACT PO; +LEVFLO500 PO; +Loratadine10 MG PO; +MERREM1 GM IV; +NITR100CA PO; +ONDA4ODT MM; +SENN187 PO; +THERA1 EACH PO
[2019-08-23 12:03] LABS: Anion Gap 7 mmol/L (6-16); Blood Urea Nitrogen 27 mg/dL (8-24); Bun/Creatinine Ratio 28.5 (12.0-20.0); CO2, Blood 25 mmol/L (21-32); Calcium, Blood 9.6 mg/dL (8.5-10.1); Chloride, Blood 103 mmol/L (98-108); Creatinine, Blood 0.95 mg/dL (0.40-1.00); Glomerular Filtration Rate >60 (60-); Glucose, Blood 277 mg/dL (70-99); Potassium, Blood 4.4 mmol/L (3.5-5.5); Sodium, Blood 135 mmol/L (136-145)
== END | disposition home or self-care (01) ==
LOC: EDSTATUS 10:24 → LAB UVN 11:35 → LAB RH 11:35
DX: N18.3 Chronic kidney disease, stage 3 (moderate) (principal)
CPT/HCPCS: 80048

== ENCOUNTER → 2019-08-25 | Outpatient (CLI) | payer OTHER | END | disposition home or self-care (01) | LOC: EDSTATUS 10:25 → LAB RH 12:24 | DX: B80 Enterobiasis (principal) | CPT/HCPCS: 87177; 87209 ==

== ENCOUNTER 2019-09-09 20:25 | Observation (INO) | payer OTHER ==
[~2019-09-09] VITALS: Ht 165.1 cm; Wt 58.5 kg
[~2019-09-09 20:25] MED LIST changes: -ALLERGY RELIEF180 MG PO; -BENADRYL25 MG PO; -CALCIUM 600 +1 EA11 PO; -DOCU100 PO; -FAMO40 PO; -HYDHCL25 PO; -HYDROCORTISON28.4 G2 TOP; -LACT PO; -LEVFLO500 PO; -MERREM1 GM IV; -NITR100CA PO; -ONDA4ODT MM; -SENN187 PO; -THERA1 EACH PO
[2019-09-09] MEDS ORDERED: CALCIUM 600 +1 EA11 PO (21:03)
[2019-09-09] MEDS ORDERED: BENADRYL25 MG PO (21:04)
[2019-09-09 21:42] LABS: BASOPHILS ABSOLUTE AUTO 0.04 K/mm3 (0.00-0.23); BASOPHILS PERCENT AUTO 1 % (0-2); EOSINOPHILS ABSOLUTE AUTO 0.49 K/mm3 (0.00-0.68); EOSINOPHILS PERCENT AUTO 6 % (0-6); IMMATURE GRAN ABSOLUTE AUTO 0.05 K/mm3 (0.00-0.10); IMMATURE GRAN PERCENT AUTO 1 % (0-1); LYMPHOCYTES PERCENT AUTO 20 % (21-46); MONOCYTES ABSOLUTE AUTO 0.83 K/mm3 (0.16-1.47); MONOCYTES PERCENT AUTO 9 % (4-13); Mean Corpuscular HGB 30.2 pg (26.0-34.0); Mean Corpuscular HGB Conc 31.3 g/dL (31.5-36.5); Mean Corpuscular Volume 97 fL (80-100); Mean Platelet Volume 9.1 fL (9.1-12.4); NEUTROPHILS ABSOLUTE AUTO 5.61 K/mm3 (1.96-9.15); NEUTROPHILS PERCENT AUTO 64 % (41-73); Platelet Count 309 K/mm3 (150-400); RDW Coefficient Variation 16.3 % (11.7-14.2); RDW Standard Deviation 57.7 fL (35.1-46.3); Red Blood Cell Count 3.31 M/mm3 (3.80-5.20); White Blood Cell Count 8.82 K/mm3 (4.00-11.30)
[2019-09-09 21:56] LABS: International Normalized Ratio 0.99; Prothrombin Time Results 10.5 Sec (9.7-11.5)
[2019-09-09 21:59] LABS: Alanine Aminotransfer (ALT/SGP 17 U/L (12-78); Albumin, Blood 3.2 g/dL (3.4-5.0); Albumin/Globulin Ratio 0.8 (0.8-1.8); Alk Phos 108 U/L (50-136); Anion Gap 4 mmol/L (6-16); Aspartate Aminotrans (AST/SGOT 19 U/L (12-37); Bilirubin, Total 0.2 mg/dL (0.1-1.0); Blood Urea Nitrogen 23 mg/dL (8-24); Bun/Creatinine Ratio 24.5 (12.0-20.0); CO2, Blood 28 mmol/L (21-32); Calcium, Blood 8.3 mg/dL (8.5-10.1); Chloride, Blood 105 mmol/L (98-108); Creatinine, Blood 0.94 mg/dL (0.40-1.00); Globulin, Blood 4.1 g/dL (2.2-4.0); Glomerular Filtration Rate >60 (60-); Glucose, Blood 226 mg/dL (70-99); Magnesium, Blood 1.7 mg/dL (1.6-2.4); Sodium, Blood 137 mmol/L (136-145); Total Protein, Blood 7.3 g/dL (6.4-8.2)
--- NOTE | 2019-09-10 05:08 | NUR ---
SHIFT SUMMARY- PT. NEW ADMIT FROM ED. A&OX3, SCHEDULED FOR LT 4TH TOE AMPUTATION THIS AM. PT. HAS RASH/ERUPTIONS ALL OVER BODY THAT ARE ITCHY, STATED WAS SUPPOSED TO SEE DERM TODAY. PT. SLEPT DURING MOST OF THE NIGHT. PT. A 1 ASSIST W/WALKER TO BATHROOM, CALLS APPROPRIATELY. DENIED ANY NEEDS T/O THE SHIFT. CALL LIGHT WITHIN REACH, SIDE RAILS UP X2, AND BED IN LOW POSITION. WILL CONT TO MONITOR.
--- NOTE | 2019-09-10 17:33 | NUR ---
PT AOX4 AND COOPERATIVE OF CARE. PT HAD L FOURTH TOE REMOVED TODAY AND HAS BEEN DOING WELL. PT HAS ALREADY WORKED WITH PHYSICAL THERAPY AND WAS UP WITH WALKER. PT RESTING IN BED NO PAIN REPORTED AT THIS TIME. PT HAS BEEN VERY ITCHY AND IS TREATED PER EMAR. WILL CONTINUE TO MONITOR.
--- NOTE | 2019-09-10 19:55 | NUR ---
PATIENT RESTING IN BED WATCHING TV. DRESSING TO LEFT FOOT IS DRY AND INTACT. NO DRAINAGE NOTED. DENIES PAIN IN THE FOOT. STATES SHE JUST ITCHES. SKIN RASH ALL OVER THE BODY WITH MULTIPLE SCATTERED OPEN SCRATCH WOUNDS. ENCOURAGED HER NOT TO SCRATCH. STATES SHE HAS HAD IT FOR A WEEK AND DOES NOT KNOW WHERE IT CAME FROM. DENIES ANY NEEDS AT THIS TIME. CALL LIGHT IN REACH. WILL CONTINUE TO MONITOR.
--- NOTE | 2019-09-11 05:23 | NUR ---
SHIFT SUMMARY: 79 Y/O FEMALE ADMITTED WITH GANGRENE OF THE 4TH TOE ON THE LEFT FOOT. AMPUTATION TOOK PLACE YESTERDAY. SHE HAS REMAINED PAIN FREE ALL NIGHT, WAS ABLE TO GET UP TO THE BATHROOM PRN AND BARE WEIGHT WITH NO PROBLEMS ,USEING WALKER. ONLY COMPLAINT SHE HAS WAS HER RASH THAT WAS UNCOMFORTABLE WITH ITCHING. CREAM WAS APPLIED TO HELP RELEIVE THE ITCH PER EMAR. BLOOD SUGAR WAS 169, GAVE ONLY 10 UNITS OF LANTUS PER HER REQUEST. SHE DENIED SOME OF HER PILLS WELL, INCLUDING STOOL SOFTNERS BECAUSE OF LOOSE STOOLS. DRESSING TO FOOT REMAINED CLEAN DRY AND INTACT. NO ACUTE CHANGES OCCURRED THIS SHIFT. WILL REPORT OFF TO DAY SHIFT RN.
[2019-09-11 09:29] LABS: BASOPHILS ABSOLUTE AUTO 0.02 K/mm3 (0.00-0.23); BASOPHILS PERCENT AUTO 0 % (0-2); EOSINOPHILS ABSOLUTE AUTO 0.32 K/mm3 (0.00-0.68); EOSINOPHILS PERCENT AUTO 5 % (0-6); Hematocrit 32.2 % (33.0-51.0); Hemoglobin 9.9 g/dL (11.5-16.0); IMMATURE GRAN ABSOLUTE AUTO 0.02 K/mm3 (0.00-0.10); IMMATURE GRAN PERCENT AUTO 0 % (0-1); LYMPHOCYTES ABSOLUTE AUTO 1.06 K/mm3 (0.84-5.20); LYMPHOCYTES PERCENT AUTO 16 % (21-46); MONOCYTES ABSOLUTE AUTO 0.49 K/mm3 (0.16-1.47); MONOCYTES PERCENT AUTO 8 % (4-13); Mean Corpuscular HGB 30.1 pg (26.0-34.0); Mean Corpuscular HGB Conc 30.7 g/dL (31.5-36.5); Mean Corpuscular Volume 98 fL (80-100); Mean Platelet Volume 9.1 fL (9.1-12.4); NEUTROPHILS ABSOLUTE AUTO 4.61 K/mm3 (1.96-9.15); NEUTROPHILS PERCENT AUTO 71 % (41-73); Platelet Count 291 K/mm3 (150-400); RDW Coefficient Variation 16.2 % (11.7-14.2); Red Blood Cell Count 3.29 M/mm3 (3.80-5.20); White Blood Cell Count 6.52 K/mm3 (4.00-11.30)
[2019-09-11 09:45] LABS: Anion Gap 7 mmol/L (6-16); Blood Urea Nitrogen 27 mg/dL (8-24); Bun/Creatinine Ratio 27.7 (12.0-20.0); CO2, Blood 20 mmol/L (21-32); Calcium, Blood 7.9 mg/dL (8.5-10.1); Chloride, Blood 109 mmol/L (98-108); Creatinine, Blood 0.97 mg/dL (0.40-1.00); Glomerular Filtration Rate 59 (60-); Glucose, Blood 100 mg/dL (70-99); Phosphorus, Blood 2.2 mg/dL (2.5-4.9); Potassium, Blood 4.7 mmol/L (3.5-5.5); Sodium, Blood 136 mmol/L (136-145)
--- NOTE | 2019-09-11 09:52 | NUR ---
09/11/19 0952 Katelin Gibbs VERIFICATIONS: EDIT CHART.
--- NOTE | 2019-09-11 17:28 | NUR ---
SUMMARY/TRANSFER TO SNF PT IS A/O X3, PLEASANT HOWEVER SOMEWHAT ANXIOUS. SHE HAS MULT SCABS EXTREMITIES, CONSTANTLY ITCHING CAUSING THEM TO BLEED SM AMTS, STATE R/T ALLERGIC REACTION WEEKS AGO. HYDROCORTISONE CREAM APPLIED/ORDER. S/P L 4TH TOE AMPUTATION YESTERDAY W DR MAURICIO, DRY BLOOD NOTED TO VALERIA LISA & PITA WRAP CHANGED/RE-ENFORCED. DR ELMORE IN APPROX 1700, PLACE ORDERS TO TRANSFER BACK TO [facility] FOR [facility]HAB, PT STATE SATISFACTION. ASSISTED HER TO SHOWER & DRESS, GATHER BELONGINGS. IV D/C INTACT. [facility] W/C V[facility] TRANSPORT APPROX 1745.
[2019-09-11] MEDS ORDERED: DOCU100 PO (17:38)
[2019-09-11] MEDS ORDERED: FAMO40 PO (17:38)
[2019-09-11] MEDS ORDERED: HYDR1TAB94 PO (17:39)
[2019-09-11] MEDS ORDERED: HYDROCORTISON28.4 G2 TOP (17:40)
[2019-09-11] MEDS ORDERED: ONDA4ODT MM (17:40)
[2019-09-11] MEDS ORDERED: THERA1 EACH PO (17:40)
[2019-09-11] MEDS ORDERED: SENN187 PO (17:41)
[2019-09-18] MEDS ORDERED: HYDHCL25 PO (21:48)
== END 2019-09-11 17:45 ==
LOC: ER 20:25 → MEDS 20:26 → ER 22:10 → MEDS 22:10
PROVIDERS: Emergency Medicine; Internal Medicine; Podiatrist; ADMIT Internal Medicine
PROC: 0Y6W0Z0 Detachment at Left 4th Toe, Complete, Open Approach (ICD-10-PCS; principal; 2019-09-10 12:30)
DX: E11.69 Type 2 diabetes mellitus with other specified complication (principal); M86.8X7 Other osteomyelitis, ankle and foot; E11.621 Type 2 diabetes mellitus with foot ulcer; L97.529 Non-pressure chronic ulcer of other part of left foot with unspecified severity; E11.52 Type 2 diabetes mellitus with diabetic peripheral angiopathy with gangrene; I96 Gangrene, not elsewhere classified; L27.0 Generalized skin eruption due to drugs and medicaments taken internally; T46.6X5A Adverse effect of antihyperlipidemic and antiarteriosclerotic drugs, initial encounter; I25.10 Atherosclerotic heart disease of native coronary artery without angina pectoris; I13.0 Hypertensive heart and chronic kidney disease with heart failure and stage 1 through stage 4 chronic kidney disease, or unspecified chronic kidney disease; E11.22 Type 2 diabetes mellitus with diabetic chronic kidney disease; N18.3 Chronic kidney disease, stage 3 (moderate); I50.42 Chronic combined systolic (congestive) and diastolic (congestive) heart failure; F32.9 Major depressive disorder, single episode, unspecified; M10.9 Gout, unspecified; K21.9 Gastro-esophageal reflux disease without esophagitis; I25.2 Old myocardial infarction; Z90.710 Acquired absence of both cervix and uterus; Z90.49 Acquired absence of other specified parts of digestive tract; Z79.02 Long term (current) use of antithrombotics/antiplatelets; Z79.82 Long term (current) use of aspirin; Z79.4 Long term (current) use of insulin; Z79.1 Long term (current) use of non-steroidal anti-inflammatories (NSAID); Z79.899 Other long term (current) drug therapy; Z86.73 Personal history of transient ischemic attack (TIA), and cerebral infarction without residual deficits; Z95.810 Presence of automatic (implantable) cardiac defibrillator; Z95.5 Presence of coronary angioplasty implant and graft; Z88.2 Allergy status to sulfonamides; Z88.8 Allergy status to other drugs, medicaments and biological substances
CPT/HCPCS: 36415; 71046; 80053; 80069; 82947; 83735; 85025; 85610; 88305; 88311; 93005; 93010; 96374; 96375; 96376; 97116; 97162; 97530; 99285-25; G0378; J1200; J2250; J2704; J3010; J3475; J3490

== ENCOUNTER → 2019-09-16 | Outpatient (CLI) | payer OTHER ==
[~2019-09-16] MED LIST changes: +ALLERGY RELIEF180 MG PO; +BENADRYL25 MG PO; +CALCIUM 600 +1 EA11 PO; +DOCU100 PO; +FAMO40 PO; +HYDHCL25 PO; +HYDROCORTISON28.4 G2 TOP; +LACT PO; +LEVFLO500 PO; +MERREM1 GM IV; +NITR100CA PO; +ONDA4ODT MM; +SENN187 PO; +THERA1 EACH PO
== END | disposition home or self-care (01) ==
LOC: LAB SHORT 11:30 → LAB 11:30
DX: L02.612 Cutaneous abscess of left foot (principal)
CPT/HCPCS: 87070; 87077; 87147; 87186; 87205

== ENCOUNTER 2019-10-24 01:26 | Inpatient (IN) | payer OTHER ==
[~2019-10-24] VITALS: Ht 165.1 cm; Wt 73.1 kg
[~2019-10-24 01:26] MED LIST changes: -ALLERGY RELIEF180 MG PO; -LACT PO; -LEVFLO500 PO; -MERREM1 GM IV; -NITR100CA PO
[2019-10-24 02:07] LABS: BASOPHILS ABSOLUTE AUTO 0.01 K/mm3 (0.00-0.23); BASOPHILS PERCENT AUTO 0 % (0-2); EOSINOPHILS ABSOLUTE AUTO 0.01 K/mm3 (0.00-0.68); EOSINOPHILS PERCENT AUTO 0 % (0-6); Hematocrit 23.1 % (33.0-51.0); Hemoglobin 7.1 g/dL (11.5-16.0); IMMATURE GRAN ABSOLUTE AUTO 0.05 K/mm3 (0.00-0.10); IMMATURE GRAN PERCENT AUTO 1 % (0-1); LYMPHOCYTES ABSOLUTE AUTO 0.47 K/mm3 (0.84-5.20); LYMPHOCYTES PERCENT AUTO 5 % (21-46); MONOCYTES ABSOLUTE AUTO 0.46 K/mm3 (0.16-1.47); MONOCYTES PERCENT AUTO 5 % (4-13); Mean Corpuscular HGB 30.1 pg (26.0-34.0); Mean Corpuscular HGB Conc 30.7 g/dL (31.5-36.5); Mean Corpuscular Volume 98 fL (80-100); NEUTROPHILS ABSOLUTE AUTO 8.39 K/mm3 (1.96-9.15); NEUTROPHILS PERCENT AUTO 89 % (41-73); RDW Coefficient Variation 16.7 % (11.7-14.2); RDW Standard Deviation 58.9 fL (35.1-46.3); Red Blood Cell Count 2.36 M/mm3 (3.80-5.20); White Blood Cell Count 9.39 K/mm3 (4.00-11.30)
[2019-10-24 02:08] LABS: Mean Platelet Volume 9.5 fL (9.1-12.4); Platelet Count 214 K/mm3 (150-400)
[2019-10-24 02:08] LABS: PCO2 Arterial 31.2 mmHg (35-45); PO2 Arterial 61.2 mmHg (80-100); pH Blood Arterial 7.37 (7.35-7.45)
[2019-10-24 02:17] LABS: Alanine Aminotransfer (ALT/SGP 38 U/L (12-78); Albumin, Blood 1.5 g/dL (3.4-5.0); Albumin/Globulin Ratio 0.7 (0.8-1.8); Alk Phos 73 U/L (50-136); Anion Gap 10 mmol/L (6-16); Aspartate Aminotrans (AST/SGOT 62 U/L (12-37); Bilirubin, Total 0.3 mg/dL (0.1-1.0); Blood Urea Nitrogen 36 mg/dL (8-24); CO2, Blood 11 mmol/L (21-32); Chloride, Blood 125 mmol/L (98-108); Creatinine, Blood 1.64 mg/dL (0.40-1.00); Globulin, Blood 2.2 g/dL (2.2-4.0); Glomerular Filtration Rate 32 (60-); Glucose, Blood 92 mg/dL (70-99); Magnesium, Blood 1.3 mg/dL (1.6-2.4); Potassium, Blood 4.1 mmol/L (3.5-5.5); Sodium, Blood 146 mmol/L (136-145); Total Protein, Blood 3.7 g/dL (6.4-8.2); Troponin I 0.113 ng/mL (0.000-0.040)
[2019-10-24 02:23] LABS: Calcium, Blood <5.0 mg/dL (8.5-10.1)
[2019-10-24 02:45] LABS: Influenza A Negative (NEGATIVE); Influenza B Negative (NEGATIVE)
[2019-10-24] MEDS ORDERED: LEVFLO500 PO (03:07)
[2019-10-24] MEDS ORDERED: ALLERGY RELIEF180 MG PO (03:10)
[2019-10-24] MEDS ORDERED: NITR100CA PO (03:12)
[2019-10-24] MEDS ORDERED: GABA300 PO (03:14)
[2019-10-24 06:41] LABS: Hematocrit 24.8 % (33.0-51.0); Hemoglobin 7.6 g/dL (11.5-16.0); Mean Corpuscular HGB Conc 30.6 g/dL (31.5-36.5); Mean Corpuscular Volume 98 fL (80-100); Mean Platelet Volume 9.7 fL (9.1-12.4); NRBC ABSOLUTE 0.02 K/mm3 (0.00-0.02); NRBC Auto 0.2 /100 WBC (0.0-0.2); Platelet Count 231 K/mm3 (150-400); RDW Coefficient Variation 16.8 % (11.7-14.2); Red Blood Cell Count 2.53 M/mm3 (3.80-5.20); White Blood Cell Count 8.76 K/mm3 (4.00-11.30)
[2019-10-24 06:57] LABS: IMMATURE RETIC FRACTION 26.3 % (2.3-16.0); RETIC HGB EQUIVALENT 28.2 pg (28.20-36.60); RETICULOCYTE ABSOLUTE 0.1133 M/mm3 (0.0200-0.1100); RETICULOCYTE COUNT PERCENT 4.41 % (0.50-2.50)
--- NOTE | 2019-10-24 07:52 | NUR ---
PT RECIEVED FROM ER AT 0600, SATS IN THE 80S, ON 15L OXIMIZER. UNSTEADY GAIT INDEPENDENT REFUSES BEDPAN. 3 PERSON ASSIST, TO BEDSIDE COMMODE, LABS DRAWN AND SENT. VANC INFUSING. PT NEEDS PICC LINE. PT HAD X1 BM AND UNMEASURED URINE. BP STABLE. DENIES CHEST PAIN. BECOMES SOB WITH ACTIVITY. MAY NEED BLOOD. WILL CONTINUE TO MONITOR
[2019-10-24 08:03] LABS: Albumin, Blood 2.6 g/dL (3.4-5.0); Albumin/Globulin Ratio 0.9 (0.8-1.8); Bilirubin, Total 0.4 mg/dL (0.1-1.0); Bun/Creatinine Ratio 21.3 (12.0-20.0); Creatinine, Blood 2.53 mg/dL (0.40-1.00); Globulin, Blood 2.8 g/dL (2.2-4.0); Potassium, Blood 5.6 mmol/L (3.5-5.5); Total Protein, Blood 5.4 g/dL (6.4-8.2)
[2019-10-24 08:04] LABS: Calcium, Blood 7.4 mg/dL (8.5-10.1)
[2019-10-24 08:56] LABS: PCO2 Arterial 26.1 mmHg (35-45); PO2 Arterial 71.6 mmHg (80-100)
[2019-10-24 08:57] LABS: pH Blood Arterial 7.25 (7.35-7.45)
--- NOTE | 2019-10-24 11:00 | NUR ---
CARE ASSUMED REPORT RECEIVED, CARE ASSUMED AT 0700 FROM DEONTE LOMBARDO. UPON ASSUMING CARE, PT'S SPO2 65% WITH FAIR READING, UNABLE TO OBTAIN BETTER READING REGARDLESS OF LOCATION OF PROBE. NEY, RESPIRATORY THERAPIST TO BEDSIDE FOR ASSESSMENT. PT ON 15 LPM OXYMIZER, ALERT AND RESPONSIVE. EXTREMITIES PALE, COOL. BP/HR STABLE. UPDATED DR. RONDON, NEW ORDER FOR ABG. ABG SHOWED OXYGEN OF GREATER THAN 90%. SPO2 DISCONNECTED AND TO BE SPOT CHECKED. PT HAS HAD FREQUENT LOOSE STOOLS, SAMPLE SENT TO LAB. PT INITIALLY REQUESTING TO GET UP TO BEDSIDE COMMODE, BECOMES SHORT OF BREATH BUT DOES TOLERATE. MOST RECENT BOWEL MOVEMENT WAS INCONTINENT IN BRIEF.
[2019-10-24 11:23] LABS: Campylobacter Sp Not Detected (NOT DETECT)
[2019-10-24 11:24] LABS: Adenovirus F 40/41 Not Detected (NOT DETECT); Astrovirus Not Detected (NOT DETECT); Cryptosporidium Not Detected (NOT DETECT); Cyclospora Cayetanensis Not Detected (NOT DETECT); E. Coli O157 Not Detected (NOT DETECT); Entamoeba Histolytica Not Detected (NOT DETECT); Enteroaggregative E. coli-EAEC Not Detected (NOT DETECT); Enteropathogenic E. coli-EPEC Not Detected (NOT DETECT); Enterotoxigenic E. coli-ETEC Not Detected (NOT DETECT); Giardia Lamblia Not Detected (NOT DETECT); Norovirus GI/GII Not Detected (NOT DETECT); Plesiomonas Shigelloides Not Detected (NOT DETECT); Rotavirus A Not Detected (NOT DETECT); Salmonella Sp Not Detected (NOT DETECT); Sapovirus Not Detected (NOT DETECT); Shiga Toxin-prod E. coli-STEC Not Detected (NOT DETECT); Shigella/Enteroin E. coli-EIEC Not Detected (NOT DETECT); Vibrio Cholerae Not Detected (NOT DETECT); Vibrio Sp Not Detected (NOT DETECT); Yersinia Enterocolitica Not Detected (NOT DETECT)
[2019-10-24 11:50] LABS: Anion Gap 9 mmol/L (6-16); Blood Urea Nitrogen 54 mg/dL (8-24); Bun/Creatinine Ratio 21.8 (12.0-20.0); CO2, Blood 19 mmol/L (21-32); Calcium, Blood 7.4 mg/dL (8.5-10.1); Chloride, Blood 109 mmol/L (98-108); Creatinine, Blood 2.48 mg/dL (0.40-1.00); Glomerular Filtration Rate 20 (60-); Glucose, Blood 166 mg/dL (70-99); Potassium, Blood 5.8 mmol/L (3.5-5.5); Sodium, Blood 137 mmol/L (136-145)
[2019-10-24 15:58] LABS: Source, Urine Catheter
[2019-10-24 16:05] LABS: Bilirubin, Urine Neg (Neg); Blood, Urine 4+ (Neg); Glucose Qualitative, Urine Neg (Neg); Ketones, Urine Neg (Neg); Leukocyte Esterase, Urine 3+ (Neg); Nitrite, Urine Neg (Neg); Protein, Urine 2+ (Neg); Urobilinogen, Urine NORM (Normal)
[2019-10-24 16:23] LABS: Appearance, Urine Hazy (Clear); Color, Urine Yellow (P-Yellow)
[2019-10-24 16:24] LABS: White Blood Cells, Urine TNTC /hpf (0-5)
[2019-10-24 16:25] LABS: Bacteria Mod /hpf; Squamous Epithelial Cells Few /hpf (Few); Transitional Epithelial Cells Few /hpf (0-Rare)
--- NOTE | 2019-10-24 17:00 | NUR ---
CDIFF SAMPLE NOTIFIED BY LAB THAT REGARDLESS OF FREQUENT BOWEL MOVEMENTS, THEY WILL NOT RETEST WITHIN 1 WEEK AND PT HAD CDIFF TEST [address] RONDON NOTIFIED BY VIDHI MILLER RN. ISOLATION DISCONTINUED.
[2019-10-24 18:44] LABS: Source, Urine Catheter
[2019-10-24 18:48] LABS: Bilirubin, Urine Neg (Neg); Blood, Urine 3+ (Neg); Glucose Qualitative, Urine Neg (Neg); Ketones, Urine Neg (Neg); Leukocyte Esterase, Urine 3+ (Neg); Nitrite, Urine Neg (Neg); Protein, Urine 1+ (Neg); Specific Gravity, Urine 1.015 (1.003-1.022); Urobilinogen, Urine NORM (Normal)
--- NOTE | 2019-10-24 19:00 | NUR ---
ASSUMED CARE NOTE: ASSUMED CARE OF PT AT 1900, RECEVIED REPORT FROM SHIRLEY CLEMONS. PT A/OX3, HOWEVER PT CAN BE FORGETFUL AT TIMES. PT IS ALSO UNABLE TO RECALL EVENTS LEADING UP TO HOSPITALIZATION. PT ON 15L OF O2 VIA OXYMIZER, SPO2 @ 100% TURNED DOWN O2 TO 10L, SPO2 @ 92%. POOR SPO2 READINGS, WILL GET FORHEAD OXIMETRY. LUNG SOUNDS CLEAR IN BILAT UPPER LUNGS, AND DIMINISHED BILAT IN LOWER BASES. PT DENIES ANY SOB AT THIS TIME, RR OF 18 BMP. PT DENIES ANY PAIN AT THIS TIME. PT IN SINUS RHYTHM WITH 1 DEGREE AV BLOCK, PER MONITOR, HR IN THE 60'S. BOWEL TONES ACTIVE IN ALL FOUR QUADRANTS. REHMAN. DELANEY PATENT, DRAINING YELLOW URINE WITH SEDIMENT. WILL MONITOR PT T/O SHIFT
[2019-10-24 19:02] LABS: Appearance, Urine Hazy (Clear); Color, Urine Yellow (P-Yellow)
[2019-10-24 19:04] LABS: Red Blood Cells, Urine 0-2 /hpf (0-2); Squamous Epithelial Cells Rare /hpf (Few)
[2019-10-24 19:05] LABS: Bacteria Rare /hpf
--- NOTE | 2019-10-24 19:10 | NUR ---
SUMMARY SINCE PREVIOUS NOTE, PT HAS HAD RESTFUL AFTERNOON. VITALS STABLE. PT HAS CALLED APPROPRIATELY FOR NEEDS. DR. ONOFRE CONSULTED AND REQUESTED MULTIPLE BLADDER SCANS, WHICH HAVE BEEN COMPLETED. DELANEY PLACED THIS EVENING FOR RETENTION PER DR. ONOFRE. RENAL ULTRASOUND COMPLETED THIS AFTERNOON. SODIUM BICARB INFUSING PER ORDERS. PT HAS CONTINUED ON 15 LPM OXYMIZER, SPOT CHECK SPO2 READINGS GREATER THAN 90.
[2019-10-24 19:20] LABS: Adenovirus Not Detected (NOT DETECT); Bordetella pertussis Not Detected (NOT DETECT); Chlamydophila pneumoniae Not Detected (NOT DETECT); Coronavirus 229E Not Detected (NOT DETECT); Coronavirus HKU1 Not Detected (NOT DETECT); Coronavirus NL63 Not Detected (NOT DETECT); Coronavirus OC43 Not Detected (NOT DETECT); Human Metapneumovirus Not Detected (NOT DETECT); Human Rhinovirus/Enterovirus Not Detected (NOT DETECT); Influenza A Not Detected (NOT DETECT); Influenza A/2009-H1 Not Detected (NOT DETECT); Influenza A/H1 Not Detected (NOT DETECT); Influenza A/H3 Not Detected (NOT DETECT); Influenza B Not Detected (NOT DETECT); Mycoplasma pneumoniae Not Detected (NOT DETECT); Parainfluenza Virus 1 Not Detected (NOT DETECT); Parainfluenza Virus 2 Not Detected (NOT DETECT); Parainfluenza Virus 3 Not Detected (NOT DETECT); Parainfluenza Virus 4 Not Detected (NOT DETECT); Respiratory Syncytial Virus Not Detected (NOT DETECT)
--- NOTE | 2019-10-24 19:30 | NUR ---
REPORT TO DEONTE TRAN TO ASSUME CARE
[2019-10-24] MEDS ORDERED: LACT PO (22:13)
[2019-10-24 22:56] LABS: Vancomycin, Random 11.9 ug/mL
--- NOTE | 2019-10-25 01:27 | NUR ---
UPDATE: MED RECONCILIATION UPDATED AND COMPLETED USING [employer] EMAR. SPOKE TO PT REGARDING CODE STATUS. SHE STATES SHE WANTS TO CONTINUE BEING A LIMITED CODE (MEDS ONLY) STATED IN HER POLST. WILL DISCUSS CODE ORDER STATUS WITH PROVIDER. PT IS ON 4L OF 02 VIA OXYMIZER, SPO2 AT 94%, FOREHEAD OXIMETER USED, REPOSITIONED MONITOR FROM RIGHT TO LEFT SIDE TO PREVENT SKIN BREAKDOWN. WILL CONTINUE TO MONITOR PT T/O SHIFT.
--- NOTE | 2019-10-25 03:01 | NUR ---
OXYGEN: PT'S SPO2 DECREASED WHEN PT BEGAN TO COUGH. PT BECAME SOB AND REQUIRED 10L OF O2 VIA OXYMIZER. RT NOTIFED OF CHANGE. PT IS ALSO A MOUTH BREATHER AND NEEDS TO BE REMINDED TO BREATH IN THROUGH THE NOSE.
[2019-10-25 03:31] LABS: BASOPHILS ABSOLUTE AUTO 0.02 K/mm3 (0.00-0.23); BASOPHILS PERCENT AUTO 0 % (0-2); EOSINOPHILS ABSOLUTE AUTO 0.46 K/mm3 (0.00-0.68); EOSINOPHILS PERCENT AUTO 5 % (0-6); Hemoglobin 7.2 g/dL (11.5-16.0); IMMATURE GRAN ABSOLUTE AUTO 0.04 K/mm3 (0.00-0.10); IMMATURE GRAN PERCENT AUTO 1 % (0-1); LYMPHOCYTES ABSOLUTE AUTO 0.53 K/mm3 (0.84-5.20); LYMPHOCYTES PERCENT AUTO 6 % (21-46); MONOCYTES ABSOLUTE AUTO 0.59 K/mm3 (0.16-1.47); MONOCYTES PERCENT AUTO 7 % (4-13); Mean Corpuscular HGB 29.9 pg (26.0-34.0); Mean Corpuscular HGB Conc 31.3 g/dL (31.5-36.5); Mean Platelet Volume 9.6 fL (9.1-12.4); NEUTROPHILS ABSOLUTE AUTO 6.97 K/mm3 (1.96-9.15); NEUTROPHILS PERCENT AUTO 81 % (41-73); Platelet Count 224 K/mm3 (150-400); RDW Coefficient Variation 16.4 % (11.7-14.2); RDW Standard Deviation 57.3 fL (35.1-46.3); Red Blood Cell Count 2.41 M/mm3 (3.80-5.20); White Blood Cell Count 8.61 K/mm3 (4.00-11.30)
[2019-10-25 03:32] LABS: Mean Corpuscular Volume 95 fL (80-100)
[2019-10-25 03:49] LABS: Albumin, Blood 2.5 g/dL (3.4-5.0); Albumin/Globulin Ratio 0.8 (0.8-1.8); Bilirubin, Total 0.5 mg/dL (0.1-1.0); Bun/Creatinine Ratio 24.1 (12.0-20.0); Calcium, Blood 7.2 mg/dL (8.5-10.1); Creatinine, Blood 2.12 mg/dL (0.40-1.00); Magnesium, Blood 2.7 mg/dL (1.6-2.4); Phosphorus, Blood 3.3 mg/dL (2.5-4.9); Potassium, Blood 4.4 mmol/L (3.5-5.5); Total Protein, Blood 5.5 g/dL (6.4-8.2)
--- NOTE | 2019-10-25 05:29 | NUR ---
SHIFT SUMMARY: PT CONTINUES TO BE ON 10L OF O2 VIA OXYMIZER, SPO2 READING OF 94 %. PT IS CURRENTLY ABLE TO RESPOND TO VERBAL AND PAINFUL STIMULI. SHE HOWEVER, IS " TO TIRED TO WAKE UP". HER DIET IS TO BE ADVANCED TOLERATED. SHE WAS ABLE TO SWALLOW THIN LIQUIDS W/O DIFFICULTS. PT'S PROTONIX WAS HELD THIS AM DUE TO PT REFUSING TO FULLY WAKE UP. PT MADE STATEMENTS SUCH "LEAVE ME ALONE, I AM SLEEPING", "GO AWAY AND TURN OFF THE LIGHTS". PT CONTNUIES TO BE IN SINUS RHYTHYM WITH HR IN 60'S. DELANEY PATNET AND DRAINING YELLOW URINE WITH WHITE SEDIMENT NOTED. NO BM'S THIS SHIFT. PT HAS BEEN REPOSITONED Q2H DURING SHIFT. MEPILEX WAS PLACED ON SACRUM TO PREVENT SKIN BREAKDOWN. BED AT LOWEST LEVEL, CALL LIGHT WITHIN REACH. WILL CONTINUE TO MONITOR PT UNTIL REPORT IS GIVEN TO ONCOMING SHIFT.
--- NOTE | 2019-10-25 11:29 | NUR ---
REASSESSMENT: PT HAS BEEN RESTING IN BED THROUGHOUT THE MORNING. SHE IS ALMOST DONE WITH 1 UNIT OF PRBC WHICH SHE TOLERATED WELL. HER OXYGEN NEEDS HAVE GONE UP AND DOWN. SHE AVERAGES ABOUT 9L OXYMIZER, BUT HAS BEEN BETWEEN 7-11L. WHEN SHE IS RESTING AND GETTING A GOOD WAVEFORM SHE ONLY NEEDS ABOUT 8L, BUT WHEN SHE EVEN SLIGHTLY MOVES THE MONITOR HAS TROUBLE GETTING A GOOD READING. LUNGS HAVE A FEW CRACKLES IN THE BASES. PT GETS DYSPNEIC WITH ACTIVITY. PT IS ALERT AND ORIENTED. SR WITH 1ST DEGREE AVB AND BBB, BP STABLE. DELANEY WITH YELLOW URINE AND SEDIMENT. DR. ONOFRE GAVE OK TO STOP IV FLUIDS IF PT IS EATING AND DRINKING OK. PT ATE HALF OF HER BREAKFAST, WILL SEE HOW SHE DOES WITH LUNCH. PT HAS BEEN TALKING ON THE PHONE THIS MORNING WITH FRIENDS AND FAMILY UPDATING THEM. DR. RONDON CAME BY ON ROUNDS AND GAVE ORDERS FRO PT/OT AND TO TRANSFER PT TO PCU.
--- NOTE | 2019-10-25 13:40 | NUR ---
TRANSFER: PT TRANSFERRED TO U 13. REPORT GIVEN TO DEONTE CHAMPION. ALL BELONGINGS TRANSFERRED WITH PT AND PT TOLERATED TRANSFER WELL.
--- NOTE | 2019-10-25 18:10 | NUR ---
TRANSFER NOTED AND SHIFT SUMMARY RECEIVED REPORT FROM DEONTE CHANG IN ICU. PT TO ROOM AT 1335 VIA BED; 3 PERSON TRANSFER WITH SLIDER SHEET. PT A&Ox3; FORGETFUL AT TIMES, PT ORIENTED TO ROOM AND CALL LIGHT AND BEDALARM. PT UP IN CHIAR THIS AFTERNOON. 1 PERSON ASSIST WITH WALKER. PT SOB WITH EXERTION; SPO2 IS DIFFICULT TO READ; 10-11L O2; PT DENIES FEELING SOB. HAVE TO ENCOURAGE PT TO LEAVE O2 ON; TAKES OFF DUE TO IT BEING UNCOMFORTABLE. PT DENIES PAIN AND NAUSEA T/O SHIFT. PT RECEIVING IV ANTIBIOTICS. DELANEY PATENT AND DRAINING. PT RECEIVED 1 UNIT PRBC. VSS. NO OTHER ACUTE CHANGES NOTED DURING SHIFT. WILL CONTINUE TO MONITOR UNTIL REPORT GIVEN TO ONCOMING RN.
--- NOTE | 2019-10-25 19:15 | NUR ---
RECEIVED REPORT FROM DEONTE MEJÍA. ASSUMED CARE OF PT. RESTING COMFORTABLY AT THIS TIME, IN NO ACUTE DISTRESS. CALL LIGHT AND POSSESSIONS IN REACH, BED IN LOW POSITION, WILL CONTINUE TO MONITOR.
[2019-10-26 05:51] LABS: Hematocrit 26.6 % (33.0-51.0); Hemoglobin 8.3 g/dL (11.5-16.0)
[2019-10-26 06:07] LABS: Albumin, Blood 2.4 g/dL (3.4-5.0); Anion Gap 8 mmol/L (6-16); Blood Urea Nitrogen 49 mg/dL (8-24); Bun/Creatinine Ratio 27.4 (12.0-20.0); CO2, Blood 24 mmol/L (21-32); Calcium, Blood 6.9 mg/dL (8.5-10.1); Chloride, Blood 103 mmol/L (98-108); Creatinine, Blood 1.79 mg/dL (0.40-1.00); Glomerular Filtration Rate 29 (60-); Glucose, Blood 105 mg/dL (70-99); Magnesium, Blood 2.4 mg/dL (1.6-2.4); Sodium, Blood 135 mmol/L (136-145)
--- NOTE | 2019-10-26 06:35 | NUR ---
PT RESTING COMFORTABLY AT THIS TIME IN NO ACUTE DISTRESS. WAS MONITORED EVERY 1-2 HOURS WITH NEEDS MET. DENIES ANY NEEDS AT THIS TIME. BED IN LOW AND LOCKED POSITION WITH BED ALARM ACTIVATED, CALL LIGHT AND POSSESSIONS IN REACH.
[2019-10-26 09:24] LABS: International Normalized Ratio 1.32; Prothrombin Time Results 13.9 Sec (9.7-11.5)
--- NOTE | 2019-10-26 18:11 | NUR ---
SHIFT SUMMARY PT A&Ox3; FORGETFUL AT TIMES. PT UP IN CHAIR FOR MAJORITY OF SHIFT. PT 1 PERSON ASSIST IN ROOM. PT DENIES SOB AT REST AND EXERTION, BREATHING EVEN AN UNLABORED. SPO2 >90%; STARTED THIS AM ON 15L O2 VIA HIGH FLOW NC; TITRATED T/O SHIFT CURRENTLY ON 8L O2 VIA NC; PT CONTINUES TO DENIES SOB AND BREATHING EVEN AND UNLABORED T/O SHIFT. PT NM PE STUDY; NEGATIVE. STARTED HEPARIN PER ORDERS; NOTIEID DR R[place]ON OF NM RESULTS; NEW ORDERS TO D/C HEPARIN AND I/S; RT TO ROOM TO EDUCATED PT ON I/S USE; THIS RN ENCOURAGED PT TO USE I/S FOR REMAINDER OF SHIFT. PT DENIES PAIN AND NAUSEA T/O SHIFT. DELANEY PATENT AND DRAINING; BLADDER TRAINING TO REMOVED CATHETER PER DR ONOFRE. CLARIFIED ORDERS AND NOTE REGARDING NS; VERBAL ORDERS TO CONTINUE. VSS. NO OTHER ACUTE CHANGES NOTED DURING SHIFT. WILL CONTINUE TO MONITOR UNTIL REPORT GIVEN TO ONCOMING RN.
--- NOTE | 2019-10-26 19:30 | NUR ---
RECEIVED REPORT FROM DEONTE MEJÍA. ASSUMED CARE OF PT. IN NO ACUTE DISTRESS AT THIS TIME. SITTING UP IN RECLINER. DENIES ANY NEEDS AT THIS TIME. CALL LIGHT AND POSSESSIONS IN REACH, WILL CONTINUE TO MONITOR.
[2019-10-27 04:27] LABS: BASOPHILS ABSOLUTE AUTO 0.02 K/mm3 (0.00-0.23); BASOPHILS PERCENT AUTO 0 % (0-2); EOSINOPHILS ABSOLUTE AUTO 0.58 K/mm3 (0.00-0.68); EOSINOPHILS PERCENT AUTO 9 % (0-6); Hematocrit 27.3 % (33.0-51.0); Hemoglobin 8.5 g/dL (11.5-16.0); IMMATURE GRAN ABSOLUTE AUTO 0.05 K/mm3 (0.00-0.10); IMMATURE GRAN PERCENT AUTO 1 % (0-1); LYMPHOCYTES ABSOLUTE AUTO 0.77 K/mm3 (0.84-5.20); LYMPHOCYTES PERCENT AUTO 12 % (21-46); MONOCYTES ABSOLUTE AUTO 0.81 K/mm3 (0.16-1.47); MONOCYTES PERCENT AUTO 12 % (4-13); Mean Corpuscular HGB 29.2 pg (26.0-34.0); Mean Corpuscular HGB Conc 31.1 g/dL (31.5-36.5); Mean Corpuscular Volume 94 fL (80-100); Mean Platelet Volume 9.7 fL (9.1-12.4); NEUTROPHILS ABSOLUTE AUTO 4.43 K/mm3 (1.96-9.15); NEUTROPHILS PERCENT AUTO 66 % (41-73); Platelet Count 234 K/mm3 (150-400); RDW Coefficient Variation 16.9 % (11.7-14.2); RDW Standard Deviation 57.4 fL (35.1-46.3); Red Blood Cell Count 2.91 M/mm3 (3.80-5.20); White Blood Cell Count 6.66 K/mm3 (4.00-11.30)
[2019-10-27 04:49] LABS: Albumin, Blood 2.5 g/dL (3.4-5.0); Anion Gap 6 mmol/L (6-16); Blood Urea Nitrogen 39 mg/dL (8-24); Bun/Creatinine Ratio 27.3 (12.0-20.0); CO2, Blood 25 mmol/L (21-32); Calcium, Blood 7.1 mg/dL (8.5-10.1); Chloride, Blood 104 mmol/L (98-108); Creatinine, Blood 1.43 mg/dL (0.40-1.00); Glomerular Filtration Rate 38 (60-); Glucose, Blood 231 mg/dL (70-99); Phosphorus, Blood 2.9 mg/dL (2.5-4.9); Potassium, Blood 4.2 mmol/L (3.5-5.5); Sodium, Blood 135 mmol/L (136-145)
--- NOTE | 2019-10-27 05:32 | NUR ---
PT RESTING IN BED COMFORTABLY, IN NO ACUTE DISTRESS. WAS MONITORED EVERY 1-2 HOURS WITH NEEDS MET. DENIES ANY NEEDS AT THIS TIME. SLEPT ON AND OFF THROUGHOUT THE NIGHT, BPs STABLE, O2 SATS 88-90% ON 8-9L O2/NASAL CANNULA. COOPERATIVE WITH CARE. CALL LIGHT AND POSSESSIONS IN REACH, BED IN LOW AND LOCKED POSITION, BED ALARM ACTIVATED. WILL CONTINUE TO MONITOR PT PRIOR TO REPORTING TO ONCOMING RN.
--- NOTE | 2019-10-27 13:45 | NUR ---
Spoke with bedside RN Keri prior to Pt visit and discussed case. Keri reports Pt is forgetful with no other concerns at this time. Pt is A&OX3. Pt is orientated to self, place, and year. She is unable to give appropriate reason for hospital stay. Pt denies pain, anxiety, and dyspnea at this time. Engaged in therapeutic discussion regarding advanced care planning. Pt reports living at [facility] and all her family lives in [place]. Discussed the importance of routine conversation with her PCP regarding disease process in order to plan accordingly. Pt reports recently seeing her parquetry floor layer and was told her heart is doing well. Pt reports being tired but has no concerns at this time. Pt expresses appreciation of visit. Palliative Care will remain available.
--- NOTE | 2019-10-27 13:52 | NUR ---
Late Entry from previous visit. During conversation regarding Pt eating lunch, Pt reports having a good appetite and no issues with lunch. Pt's lunch tray appears to not have been touched. Pt appears mildly confused and forgetful.
--- NOTE | 2019-10-27 16:35 | NUR ---
[facility] care visit conducted. Patient is lying in bed and alert. Patient openly shares about her medical issues, her family unit complications, her dog, her latter day background and her life at [facility]. Patient tells me about personal struggles and the victories along the way. I listen empathically, highlight her strength and courage and provide companionship and prayer. Patient responds well and displays evidence of restored hardy. I will continue to remain available to patient and family.
--- NOTE | 2019-10-27 18:36 | NUR ---
SHIFT SUMMARY PT HAS BEEN A&O X3, VSS, ON 9 L O2 VIA NC. NS INFUSING PER EMAR @ 50 ML/HR. PT DENIES SOB/CP, NAUSEA NOTED X1, PT CALLS FOR ASSISTANCE PRN. PT'S STATUS HAS BEEN CHANGED TO MEDICAL WITH NO TELE, TELE MONITOR HAS BEEN REMOVED, REPORT HAS BEEN CALLED TO ROOM 341 RN. PT WILL BE TRANSPORTED VIA W/C.
--- NOTE | 2019-10-27 19:30 | NUR ---
PT TRANSFER FROM PCU BY WHEELCHAIR TO ROOM 341.
[2019-10-28 06:52] LABS: BASOPHILS ABSOLUTE AUTO 0.03 K/mm3 (0.00-0.23); BASOPHILS PERCENT AUTO 1 % (0-2); EOSINOPHILS ABSOLUTE AUTO 0.87 K/mm3 (0.00-0.68); EOSINOPHILS PERCENT AUTO 13 % (0-6); Hematocrit 28.1 % (33.0-51.0); Hemoglobin 8.7 g/dL (11.5-16.0); IMMATURE GRAN ABSOLUTE AUTO 0.09 K/mm3 (0.00-0.10); IMMATURE GRAN PERCENT AUTO 1 % (0-1); LYMPHOCYTES ABSOLUTE AUTO 1.34 K/mm3 (0.84-5.20); LYMPHOCYTES PERCENT AUTO 21 % (21-46); MONOCYTES ABSOLUTE AUTO 1.09 K/mm3 (0.16-1.47); MONOCYTES PERCENT AUTO 17 % (4-13); Mean Corpuscular HGB 29.2 pg (26.0-34.0); Mean Corpuscular Volume 94 fL (80-100); Mean Platelet Volume 9.3 fL (9.1-12.4); NEUTROPHILS ABSOLUTE AUTO 3.05 K/mm3 (1.96-9.15); NEUTROPHILS PERCENT AUTO 47 % (41-73); Platelet Count 241 K/mm3 (150-400); RDW Coefficient Variation 16.8 % (11.7-14.2); RDW Standard Deviation 57.1 fL (35.1-46.3); Red Blood Cell Count 2.98 M/mm3 (3.80-5.20); White Blood Cell Count 6.47 K/mm3 (4.00-11.30)
--- NOTE | 2019-10-28 06:55 | NUR ---
SHIFT SUMMARY AOX4. DENIES DYSPNEA, N/V, OR PAIN. SPO2 99% ON 9L LAST NIGHT DURING ASSESSMENT THEREFORE I DECREASED O2 DOWN TO 6L, SPO2 @ 92%. LUNGS ARE DIM W/CRACKLES IN BASES, E/U RESPIRATIONS. THIS AM SPO2 @84% ON RA SINCE PT REMOVED O2, REPLACED O2 & SPO2 INCREASED BACK TO 92%. INCONTINENT/CONTINENT OF URINE. CALL LIGHT IN REACH.
[2019-10-28 07:11] LABS: Albumin, Blood 2.5 g/dL (3.4-5.0); Anion Gap 6 mmol/L (6-16); Blood Urea Nitrogen 29 mg/dL (8-24); Bun/Creatinine Ratio 25.2 (12.0-20.0); CO2, Blood 26 mmol/L (21-32); Calcium, Blood 7.4 mg/dL (8.5-10.1); Chloride, Blood 108 mmol/L (98-108); Creatinine, Blood 1.15 mg/dL (0.40-1.00); Glomerular Filtration Rate 49 (60-); Glucose, Blood 82 mg/dL (70-99); Magnesium, Blood 1.8 mg/dL (1.6-2.4); Phosphorus, Blood 2.6 mg/dL (2.5-4.9); Potassium, Blood 4.1 mmol/L (3.5-5.5); Sodium, Blood 140 mmol/L (136-145)
[2019-10-28 07:17] LABS: Digoxin (Lanoxin) 0.47 ug/mL (0.80-2.00)
--- NOTE | 2019-10-28 18:15 | NUR ---
Shift Summary A/Ox2-3. Pleasant and cooperative. Pt has been picking on scabs and has been instructed to not do so. Pt picked scab on L foot and bled, wound care provided and bandaged with gauze and kerlix. Denies pain this shift. Pt states she is ready to go home. No acute concerns.
--- NOTE | 2019-10-28 18:28 | NUR ---
Oxygen titration Patient saturating at 96% on 4L. Titrating down to 3L via NC.
[2019-10-29 05:51] LABS: Hematocrit 28.8 % (33.0-51.0); Hemoglobin 8.9 g/dL (11.5-16.0)
--- NOTE | 2019-10-29 06:16 | NUR ---
SHIFT SUMMARY PT IS A 79 Y/O FEMALE, ADMITTED WITH UTI AND SEPSIS. SHE IS A&O X 2, AND A 1PA UP TO THE BSC OR BATHROOM. PT DENIED ANY ACUTE PAIN OR SOB, THOUGH SHE DID REPORT MILD NAUSEA DURING THE NIGHT AND WAS MEDICATED WITH PRN ZOFRAN. PT IS ON O2, AND WAS DECREASED FROM 3L TO 2L DURING THE NIGHT, SATTING IN THE LOW 90S. VITAL SIGNS STABLE. NO ACUTE CHANGES IN PT CONDITION NOTED DURING THE NIGHT. WILL CONTINUE TO MONITOR AND TREAT PER EMAR UNTIL HAND OFF TO DAY SHIFT RN.
[2019-10-29 06:19] LABS: Albumin, Blood 2.5 g/dL (3.4-5.0); Anion Gap 5 mmol/L (6-16); Blood Urea Nitrogen 26 mg/dL (8-24); Bun/Creatinine Ratio 23.6 (12.0-20.0); CO2, Blood 26 mmol/L (21-32); Calcium, Blood 7.8 mg/dL (8.5-10.1); Chloride, Blood 108 mmol/L (98-108); Glomerular Filtration Rate 51 (60-); Glucose, Blood 124 mg/dL (70-99); Magnesium, Blood 1.7 mg/dL (1.6-2.4); Phosphorus, Blood 3.1 mg/dL (2.5-4.9); Potassium, Blood 4.1 mmol/L (3.5-5.5); Sodium, Blood 139 mmol/L (136-145)
[2019-10-29] MEDS ORDERED: MERREM1 GM IV (11:44)
[2019-10-29] MEDS ORDERED: POLY500 PO (11:45)
--- NOTE | 2019-10-29 17:22 | NUR ---
DISCHARGE SUMMARY A/OX3, PLEASANT AND COOPERATIVE. THIS RN REMOVED O2, PT SATURATED 89-90% ON RA. PT WAS PLACED BACK ON 1L AND SATURATING 95%. NO C/O PAIN, HAD A SHOWER. PT DISCHARGED TO [facility], POWERGLIDE IN PLACE FOR IV ABX. FACESHEET AND YELLOW PACKET PROVIDED TO ESCORT PERSON, [facility]. NO OTHER CONCERNS.
== END 2019-10-29 17:23 | DRG 871 ==
LOC: ER 01:26 → PCU 01:27 → MEDS 03:25 → ICUW 03:25 → PCU 10-25 13:26 → MEDS 10-27 19:26
PROVIDERS: Emergency Medicine; Internal Medicine; Internal Medicine Nephrology; ADMIT Internal Medicine
DX: A41.59 Other Gram-negative sepsis (principal); J96.01 Acute respiratory failure with hypoxia; I50.43 Acute on chronic combined systolic (congestive) and diastolic (congestive) heart failure; N39.0 Urinary tract infection, site not specified; E87.2 Acidosis; N17.9 Acute kidney failure, unspecified; E87.1 Hypo-osmolality and hyponatremia; Z16.12 Extended spectrum beta lactamase (ESBL) resistance; I42.9 Cardiomyopathy, unspecified; I13.0 Hypertensive heart and chronic kidney disease with heart failure and stage 1 through stage 4 chronic kidney disease, or unspecified chronic kidney disease; G93.40 Encephalopathy, unspecified; R65.20 Severe sepsis without septic shock; I95.9 Hypotension, unspecified; D63.1 Anemia in chronic kidney disease; E88.09 Other disorders of plasma-protein metabolism, not elsewhere classified; N18.3 Chronic kidney disease, stage 3 (moderate); E11.22 Type 2 diabetes mellitus with diabetic chronic kidney disease; E11.51 Type 2 diabetes mellitus with diabetic peripheral angiopathy without gangrene; I25.10 Atherosclerotic heart disease of native coronary artery without angina pectoris; Z86.73 Personal history of transient ischemic attack (TIA), and cerebral infarction without residual deficits; E86.9 Volume depletion, unspecified; E83.51 Hypocalcemia; E86.0 Dehydration; Z95.810 Presence of automatic (implantable) cardiac defibrillator; Z79.82 Long term (current) use of aspirin; Z79.4 Long term (current) use of insulin; Z79.899 Other long term (current) drug therapy; Z89.422 Acquired absence of other left toe(s); Z95.5 Presence of coronary angioplasty implant and graft; E83.42 Hypomagnesemia
CPT/HCPCS: 0097U; 0099U; 36415; 36430; 36600; 51702; 71045; 76770; 78582; 80048; 80053; 80069; 80162; 80202; 81001; 82728; 82803; 82947; 83540; 83550; 83605; 83735; 83880; 84100; 84145; 84484; 85014; 85018; 85025; 85027; 85045; 85610; 85730; 86850; 86900; 86901; 86923; 87040; 87086; 87804; 93005; 93010; 94640; 96361; 96365; 96367; 96368; 97110; 97116; 97161; 97165; 97535; 99285-25; A9540; A9558; C1751; C9113; J0610; J0694; J0881; J1644; J2185; J2405; J3370; J3475; J7030; J7070; P9016; P9046

== ENCOUNTER → 2019-12-08 | Outpatient (CLI) | payer OTHER ==
[~2019-12-08] MED LIST changes: +ALLERGY RELIEF180 MG PO; +LACT PO; +LEVFLO500 PO; +MERREM1 GM IV; +NITR100CA PO
[2019-12-08 23:04] LABS: Bilirubin, Urine Neg (Neg); Blood, Urine 4+ (Neg); Glucose Qualitative, Urine Neg (Neg); Ketones, Urine Neg (Neg); Leukocyte Esterase, Urine 3+ (Neg); Nitrite, Urine Neg (Neg); Protein, Urine 3+ (Neg); Specific Gravity, Urine 1.015 (1.003-1.022); Urobilinogen, Urine NORM (Normal)
[2019-12-08 23:07] LABS: Appearance, Urine Cloudy (Clear); Color, Urine Yellow (P-Yellow)
[2019-12-08 23:12] LABS: Bacteria Many /hpf; Squamous Epithelial Cells Not Seen /hpf (Few); White Blood Cells, Urine TNTC /hpf (0-5)
== END | disposition home or self-care (01) ==
LOC: LAB RH 12:00 → EDSTATUS 13:43 → LAB RH 13:44
PROVIDERS: Family Medicine
DX: R09.82 Postnasal drip (principal)
CPT/HCPCS: 81001; 87077; 87086; 87186

== ENCOUNTER → 2019-12-17 | Outpatient (CLI) | payer OTHER ==
[2019-12-17 11:19] LABS: Albumin, Blood 2.9 g/dL (3.4-5.0); Anion Gap 6 mmol/L (6-16); Blood Urea Nitrogen 23 mg/dL (8-24); Bun/Creatinine Ratio 25.4 (12.0-20.0); CO2, Blood 26 mmol/L (21-32); Calcium, Blood 9.2 mg/dL (8.5-10.1); Chloride, Blood 100 mmol/L (98-108); Creatinine, Blood 0.91 mg/dL (0.40-1.00); Glomerular Filtration Rate >60 (60-); Glucose, Blood 322 mg/dL (70-99); Phosphorus, Blood 3.2 mg/dL (2.5-4.9); Potassium, Blood 3.7 mmol/L (3.5-5.5); Sodium, Blood 132 mmol/L (136-145)
== END | disposition home or self-care (01) ==
LOC: LAB RH 07:37 → EDSTATUS 11:07
PROVIDERS: Internal Medicine Nephrology
DX: N18.3 Chronic kidney disease, stage 3 (moderate) (principal); D63.1 Anemia in chronic kidney disease
CPT/HCPCS: 36415; 80069; 85018

== ENCOUNTER 2020-07-06 09:20 | Day surgery (SDC) | payer OTHER ==
[~2020-07-06] VITALS: Ht 165.1 cm; Wt 61.0 kg
[~2020-07-06 09:20] MED LIST changes: -ALLO100 PO; +BASAGLAR K100 UNIT/1 SC; +HUMALOG KW100 UNIT/1 SC
[2020-07-06] MEDS ORDERED: ALLEGRA ALLERG180 MG PO (11:28)
[2020-07-06 11:29] LABS: BASOPHILS ABSOLUTE AUTO 0.07 K/mm3 (0.00-0.23); BASOPHILS PERCENT AUTO 1 % (0-2); EOSINOPHILS ABSOLUTE AUTO 0.26 K/mm3 (0.00-0.68); EOSINOPHILS PERCENT AUTO 2 % (0-6); Hematocrit 38.9 % (33.0-51.0); Hemoglobin 12.8 g/dL (11.5-16.0); IMMATURE GRAN ABSOLUTE AUTO 0.15 K/mm3 (0.00-0.10); IMMATURE GRAN PERCENT AUTO 1 % (0-1); LYMPHOCYTES ABSOLUTE AUTO 1.92 K/mm3 (0.84-5.20); LYMPHOCYTES PERCENT AUTO 15 % (21-46); MONOCYTES PERCENT AUTO 7 % (4-13); Mean Corpuscular HGB 28.7 pg (26.0-34.0); Mean Corpuscular HGB Conc 32.9 g/dL (31.5-36.5); Mean Corpuscular Volume 87 fL (80-100); Mean Platelet Volume 9.4 fL (9.1-12.4); NEUTROPHILS ABSOLUTE AUTO 9.94 K/mm3 (1.96-9.15); NEUTROPHILS PERCENT AUTO 75 % (41-73); Platelet Count 366 K/mm3 (150-400); RDW Standard Deviation 48.4 fL (35.1-46.3); Red Blood Cell Count 4.46 M/mm3 (3.80-5.20); White Blood Cell Count 13.24 K/mm3 (4.00-11.30)
[2020-07-06] MEDS ORDERED: PANT40 PO (11:29)
[2020-07-06] MEDS ORDERED: Fibercon625 MG PO (11:31)
[2020-07-06 11:51] LABS: Bun/Creatinine Ratio 30.3 (12.0-20.0); Calcium, Blood 10.3 mg/dL (8.5-10.1); Creatinine, Blood 1.09 mg/dL (0.40-1.00); Potassium, Blood 4.2 mmol/L (3.5-5.5)
--- NOTE | 2020-07-06 16:53 | NUR ---
ASSUMED CARE OF PATIENT UPON RETURN FROPM THE CATHLAB. VVS. RFA AND LEFT PEDAL ACCESS SITES. BOTHE CDI, NO BLEEDING. PATIENT WAKES EASILY FROM SEDATIVE STATE. MONITOR IN PLACE. CALL LIGHT IN REACH. SIDE RAILS UP X 2. RN AT THE BEDSIDE. TAKING SIPS OF WATER. PATIENT STATES THAT SHE IS IN PAIN, BUT UNABLE TO VERBALIZE LOCATION. FALLS BACK IN SEDATIVE STATE EASILY.
--- NOTE | 2020-07-06 17:36 | NUR ---
PATIENT AWAKE, DINNER TRAY SET UP ADN PATIENT FED SELF WITH MINIMAL ASSISTANCE. GROIN AND PEDAL DRESSING CDI. NO BLEEDIN, NO HEMATOMA. NO PAIN NOTED.
--- NOTE | 2020-07-06 18:43 | NUR ---
1820 PATIENT ASSISTED UP WITH TWO RN'S AND DRESSED AND TRANSFERED TO THE WHEELCHAIR. REPORT CALLED TO [facility] TO LOLIS AT [phone]. ALL DISCHARGE INSTRUCTIONS REVIEWED WITH LOLIS VIA PHONE. PACKET SENT WITH THE PATIENT. PIV TO THE HAND REMOVED AND PRESSURE DRESSING APPLIED. WHEN DRESSED NATALY CARE AND CLEAN DIAPER PLACED ON PATIENT. FAISALNET TOLERATED TRANSFERED WELL. NO PAIN NOTED. NO BLEEDING. AND DISCHARGED TO TRANSPORT VAN BACK TO [facility].
== END 2020-07-06 18:30 | disposition home or self-care (01) ==
LOC: MHTC 09:20
PROVIDERS: Radiology Diagnostic Radiology
DX: E11.51 Type 2 diabetes mellitus with diabetic peripheral angiopathy without gangrene (principal); I70.213 Atherosclerosis of native arteries of extremities with intermittent claudication, bilateral legs; E11.42 Type 2 diabetes mellitus with diabetic polyneuropathy; Z87.891 Personal history of nicotine dependence; Z88.8 Allergy status to other drugs, medicaments and biological substances; Z88.2 Allergy status to sulfonamides; Z79.82 Long term (current) use of aspirin; Z79.899 Other long term (current) drug therapy; Z79.02 Long term (current) use of antithrombotics/antiplatelets; I25.10 Atherosclerotic heart disease of native coronary artery without angina pectoris; Z86.73 Personal history of transient ischemic attack (TIA), and cerebral infarction without residual deficits; I70.0 Atherosclerosis of aorta
CPT/HCPCS: 37224; 37229; 37232; 37233; 75625; 75716; 75774; 76937; 80048; 82947; 85025; 85347; 99152; 99153; C1714; C1725; C1760; C1769; C1887; C1894; C2623; J1644; J2250; J3010; J7030; J7042; Q9967

== ENCOUNTER → 2020-07-26 | Outpatient (CLI) | payer OTHER ==
[~2020-07-26] MED LIST changes: +ALLEGRA ALLERG180 MG PO; +CIPR500 PO; +ESCI10 PO; +Fibercon625 MG PO; +GABA400 PO; +PANT40 PO; +XARELTO20 MG PO
[2020-07-26 15:42] LABS: BASOPHILS ABSOLUTE AUTO 0.08 K/mm3 (0.00-0.23); BASOPHILS PERCENT AUTO 1 % (0-2); EOSINOPHILS PERCENT AUTO 6 % (0-6); Hematocrit 35.6 % (33.0-51.0); Hemoglobin 11.1 g/dL (11.5-16.0); IMMATURE GRAN ABSOLUTE AUTO 0.06 K/mm3 (0.00-0.10); IMMATURE GRAN PERCENT AUTO 1 % (0-1); LYMPHOCYTES ABSOLUTE AUTO 1.92 K/mm3 (0.84-5.20); LYMPHOCYTES PERCENT AUTO 17 % (21-46); MONOCYTES ABSOLUTE AUTO 0.95 K/mm3 (0.16-1.47); MONOCYTES PERCENT AUTO 8 % (4-13); Mean Corpuscular HGB 28.3 pg (26.0-34.0); Mean Corpuscular HGB Conc 31.2 g/dL (31.5-36.5); Mean Corpuscular Volume 91 fL (80-100); Mean Platelet Volume 9.6 fL (9.1-12.4); NEUTROPHILS PERCENT AUTO 67 % (41-73); Platelet Count 388 K/mm3 (150-400); RDW Coefficient Variation 14.9 % (11.7-14.2); RDW Standard Deviation 50.1 fL (35.1-46.3); Red Blood Cell Count 3.92 M/mm3 (3.80-5.20); White Blood Cell Count 11.31 K/mm3 (4.00-11.30)
[2020-07-26 15:50] LABS: International Normalized Ratio 1.03
[2020-07-26 15:55] LABS: Bun/Creatinine Ratio 30.3 (12.0-20.0); Creatinine, Blood 1.22 mg/dL (0.40-1.00); Potassium, Blood 4.3 mmol/L (3.5-5.5)
== END | disposition home or self-care (01) ==
LOC: EDSTATUS 13:48 → LAB RH 14:40
PROVIDERS: Family Medicine
DX: I73.9 Peripheral vascular disease, unspecified (principal)
CPT/HCPCS: 80048; 85025; 85610

== ENCOUNTER 2020-07-27 10:45 | Inpatient (IN) | payer OTHER ==
[~2020-07-27] VITALS: Ht 165.1 cm; Wt 59.4 kg
[~2020-07-27 10:45] MED LIST changes: -CIPR500 PO; -XARELTO20 MG PO
[2020-07-27] MEDS ORDERED: TORSE20 PO (11:17)
[2020-07-27] MEDS ORDERED: ALLEGRA ALLERG180 MG PO (11:17)
--- NOTE | 2020-07-27 15:39 | NUR ---
Patient arrived via ICU bed from [facility]. She was alert and able to communicate her needs. 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 She has sheath in place in right groin. Pedal pulse in right foot and no posterior, and posterior pulse in left foot with no pedal pulse per doppler on both. VSS, SEE EMR sats on RA 96%. Awaiting orders for TPA in sheath and heparin through IV. Place 18/10 Powerglide in EMILY.
--- NOTE | 2020-07-27 16:09 | NUR ---
Patient has been started on 1mg/hr TPA through sheath and 300 units/hr of heparin through PowerGlide. She has tolerated pudding x2. and Dr Haro ordered reg. diet. will do CBG and if WNL's Dr Haro wants to shut off. VSS, See EMR.
[2020-07-27 16:57] LABS: Source, Urine Catheter
[2020-07-27 17:02] LABS: Bilirubin, Urine Neg (Neg); Blood, Urine Neg (Neg); Glucose Qualitative, Urine Neg (Neg); Ketones, Urine Neg (Neg); Leukocyte Esterase, Urine 3+ (Neg); Nitrite, Urine Pos (Neg); Protein, Urine 1+ (Neg); Specific Gravity, Urine 1.005 (1.003-1.022); Urobilinogen, Urine NORM (Normal)
[2020-07-27 17:49] LABS: Color, Urine Pale Yellow (P-Yellow)
[2020-07-27 17:50] LABS: Appearance, Urine Clear (Clear)
[2020-07-27 17:51] LABS: White Blood Cells, Urine 25-50 /hpf (0-5)
[2020-07-27 17:52] LABS: Amorphous Mod (0-Heavy); Bacteria Few /hpf; Oval Fat Bodies Rare /lpf; Renal Epithelial Few /hpf (0-Rare); Squamous Epithelial Cells Rare /hpf (Few)
--- NOTE | 2020-07-27 18:42 | NUR ---
Patient is currently sleeping. 16Fr Portillo placed per order. She remains on RA and sats >90%. Her Right groin sheath site WNL's and is infusing TPA ant 1 mg/hr until 0700 on 07/28. She also has 20/10 Powerglide in EMILY infusing Heaprin at 300 units/hr= 6ml/hr=4.9 u/kg/hr. She is regular diet and tolerating well and is NPO after midnight. VSS, See EMR.
--- NOTE | 2020-07-27 19:15 | NUR ---
PATIENT FOUND SITTING UP IN BED EATING DINNER, HOB LOWERED AND PATIENT EDUCATED ON NEED TO STAY FLAT AND AVOID GROIN FLEXATION DUE TO SHEATH TO RIGHT GROIN. GROIN SITE REMAINS SOFT WITH NO SWELLING OR BLEEDING SEEN. PATIENT VERBALIZED UNDERSTANDING. RIGHT FOOT WARM WITH DOPPLER PULSES TO DORSALIS PEDIS AND DOPPLER PULSES TO POSTERIOR TIBIAL. LEFT FOOT SLIGHTLY COOL WITH POOR CAP REFIL WITH DOPPLER PULSES TO POSTERIOR TIBIAL AND NO PULSE FOUND TO DORSALIS PEDIS. PATIENT C/O PAIN TO FEET WITH TOUCH MORE TO LEFT FOOT. TPA AT 1 MG/HR INFUSING TO SHEATH, HEPARIN INFUSING AT SET RATE OF 6 CC/HR.
--- NOTE | 2020-07-27 22:00 | NUR ---
PATIENT VERBALIZED FEELING LIKE HER LEFT FOOT IS ITCHING. NOW HAS DOPPLER PULSES TO BOTH DP AND PT TO HER LEFT FOOT AND CAP REFILL IS NORMAL. PATIENT JOHNSON PO MEDS WITHOUT DIFFICULTY.
--- NOTE | 2020-07-28 02:01 | NUR ---
PATIENT AWAKE YELLING OUT WITH SHARP PAIN AND ITCHING TO LEFT FOOT AND LOWER LEG PULSES ARE EASIER TO FIND CONTINUES TO BE DOPPLER DP AND PT. AGAIN EXPLAINED THAT THIS IS THE SENSATION OF HER LEG GETTING FLOW AGAIN. TYLENOL GIVEN FOR PAIN. PATIENT HAVING DIFFICULTY KEEPING FROM BENDING HER KNEES UP, BOTH LEGS ARE SUPPORTED ON PILLOWS AND TIGHT BLANKET PLACED OVER KNEES TO REMIND HER NOT TO LIFT KNEES AND LEGS. RIGHT GROIN SITE REMAINS SOFT WITH NO FURTHER OOZING, TPA AND HEPARIN CONTINUE
--- NOTE | 2020-07-28 03:54 | NUR ---
PATIENT SLEEPING AWAKENS AT TIMES WITH SHARP PAIN TO LEFT FOOT AND LOWER LEG THEN FALLING BACK TO SLEEP EASILY
[2020-07-28 05:12] LABS: Hemoglobin 10.3 g/dL (11.5-16.0)
--- NOTE | 2020-07-28 05:26 | NUR ---
PATIENT FOUND LAYING ON HER RIGHT SIDE IN THE POSITION, PATIENT POSITIONED BACK TO HER BACK RIGHT GROIN SITE REMAINS SOFT WITH SHEATH IN PLACE NO NEW OOZING SEEN. BILAT ANKLE RESTRAINTS PLACED. PATIENT SLEEPING T/O REPOSITIONING ONLY WAKING UP ENOUGH TO SAY "I KNOW" WHEN REMINDING TO NOT FLEX GROIN AND REASON FOR RESTRAINTS. PATIENT FALLING BACK TO SLEEP WHEN UNDISTURBED. BOTH FEET HAVE DOPPLER PEDAL PULSES
[2020-07-28 05:32] LABS: Bun/Creatinine Ratio 30.6 (12.0-20.0); Calcium, Blood 8.9 mg/dL (8.5-10.1); Creatinine, Blood 1.21 mg/dL (0.40-1.00); Potassium, Blood 3.9 mmol/L (3.5-5.5)
--- NOTE | 2020-07-28 07:00 | NUR ---
SUMMARY PATIENT SLEEPING WHEN UNDISTURBED AWAKENS TO VERBAL STIMULI. JOHNSON PO MEDS WITHOUT DIFFICULTLY WITH APPLESAUCE THIS MORNING DUE TO GLUCOSE 80 ON CHEM. BILAT ANKLE RESTRAINTS CONTINUE DUE TO PATIENT FORGETTING AND NOT KEEPING GROIN AND LEGS STILL. RIGHT GROIN SITE REMAINS SOFT WITH TPA OFF AT 0645 AND PRESSURE LINE PLACED TO SHEATH, WAVE FORM DAMP DUE TO LENGTH OF LINE. PULSES TO BOTH FEET WITH DOPPLER. PATIENT NOT C/O PAIN AT THIS TIME
--- NOTE | 2020-07-28 08:00 | NUR ---
Received rport from [facility]. Patient sleeping in bed. She is on RA and sats >90%. Right groin site WNL's and is on pressure abg setup and reading arterial line, Heparin continues on EMILY powerglide that has dressing intact and site WNL's. VSS, SeeEMR. She has bilateral ankle soft restraints to help remind her to lay flat as last noc she was wanting to be on side and get out of bed.
--- NOTE | 2020-07-28 10:00 | NUR ---
Patient continues to sleep and awakens to verbal stimuli fopr care and falls back to sleep. Heparin continues at 300 units/hr in EMILY PowerGlide. VSS, See EMR. Right groin site WNL's and continues with pressure bag.
--- NOTE | 2020-07-28 12:38 | NUR ---
Patient continues to rest. She states her feet are itchy and tingle. Her CBG 60's and gave OJ with meds. VSS, See EMR. Pulses to LE's by doppler and faint. Right groin site WNL's and coontinues to have pressure bag attached to keep open and Heparin at 300 units/h in EMILY PowerGlide. No significant changes.
--- NOTE | 2020-07-28 14:24 | NUR ---
Patientn has been laying awake in bed watching TV. She continues to ask when she is have procedure. She has remained supin and LE restraints to remind her as she tends to want brandi roll and lay on her side in bed. VSS. See EMR. She continues on RA and sats >90%. LE pulses still by doppler. Right groin site WNL's and continues on pressure bag and heparin infusing in EMILY PowerGlide.
--- NOTE | 2020-07-28 16:45 | NUR ---
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 She was sleeping uptil then. VSS, See EMR. Reviewed groin with computer lab assistant staff and informed them that heparin was still running at 300 units/hr in [facility].
--- NOTE | 2020-07-28 20:00 | NUR ---
ASSUMED CARE RECEIVED REPORT FROM DEONTE NICOLE. 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 SHE IS ON 2 L NC, SAT'ing 97%. SINUS RHYTHM, RATE IN THE 60s WITH INTERMITTENT PACING. SHE HAS DOPPABLE PULSES IN HER PEDAL AND POSTERIOR TIB IN BILATERAL LOWER EXTREMITIES. STABLE BP. PATENT DELANEY DRAINING CLEAR, YELLOW/ORANGE URINE. BED LOW AND LOCKED. NO RESTRAINTS.
--- NOTE | 2020-07-29 01:07 | NUR ---
UPDATE NO SIGN/SYMPTOMS OF PT BLEEDING. RIGHT GROIN SITE IS NONTENDER, AND NO SIGNS OF HEMATOMA FORMATION. PT HAS DOPPABLE DISTAL PULSES (POSTERIOR TIB AND PEDAL) ON BILATERAL LOWER EXTREMITIES. WARM FEET WITH CAP REFILL < 3s. PT CONTINUES TO SLEEP. HEPARIN WAS STARTED AT 0040 AT 15 UNITS/KG/HR, WITH A 3000 UNIT BOLUS. NEXT PTT AT 0800. PTT AT 2300 WAS SUBTHERAPEUTIC (AFTER A CRITCAL HIGH '>139 AT 1900).
--- NOTE | 2020-07-29 05:34 | NUR ---
SHIFT SUMMARY PT SLEPT FOR MAJORITY OF NIGHT, BUT WOKE UP ABOUT 0230 AND HAS BEEN IN AND OUT OF SLEEP SINCE. SHE IS ORIENTED TO SELF, SURROUNDINGS, AND SITUATION. 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 SHE DENIES CHEST PAIN, DYSPNEA, ABD. PAIN, NAUSEA, AND EVEN TENDERNESS IN HER RIGHT GROIN. HER DISTAL PULSES (PT AND PEDAL) ARE DOPPABLE ONLY, BUT ARE PRESENT IN BOTH LOWER EXTREMITIES. HER BLEs ARE WARM AND PINK, CAP REFIL < 3s, BUT SHE DOES STATE SHE HAS NUMBNESS (NOT NEW). SHE COMPLAINS OF BACK PAIN BUT ONLY IN CERTAIN POSITIONS, SHE PREFERS TO LAY FLAT AT THE MOMENT. LATER IN THE NIGHT SHE WOKE UP AND WAS COMPLAINING OF ITCHYNESS 'ALL OVER' - I CALLED MARYLOU AND GOT SOME BENADRYL FOR HER. I REASSED HER SKIN AND FOUND NO HIVES OR ANY OTHER POTENTIAL ABNORMALITIES, ASIDE FROM SOME REDNESS ON HER PROXIMAL, ANTERIOR THIGHS FROM WHERE SHE HAD BEEN SCRATCHING. HER RIGHT GROIN SITE REMAINS UNCHANGED, NONTENDER, NO SIGNS OF HEMATOMA FORMATION, AND THERE IS ONE HARD SPOT THAT HAS BEEN THERE SINCE THE BEGINNING OF THE SHIFT, IT IS BETWEEN THE ACCESS SITE AND THE SUPRAPUBI AREA. OTHER THAN THAT IT LOOKS WNL. VITALS HAVE BEEN STABLE ALL NIGHT. NO MAJOR CHANGES IN HR AND BP. SHE HAD GREAT URINE OUTPUT (900ML) VIA HER DELANEY CATHETER. BED IS LOW AND LOCKED. CALL LIGHT WITHIN REACH - ALTHOUGH SHE FORGETS TO USE IT, I KEEP THE DOOR OPEN SO I CAN HEAR WHEN SHE CALLS.
--- NOTE | 2020-07-29 14:00 | NUR ---
HEPARIN STOPPED. PT IS TO BE DISCHARGED ON XARELTO. ADMINISTERED XARELTO AND STOPPED HEPARIN.
[2020-07-29] MEDS ORDERED: XARELTO20 MG PO (14:31)
--- NOTE | 2020-07-29 15:45 | NUR ---
DISCHARGE: EMS ARIVE WITH WHEELCHAIR. PT STATES SHE CAN NOT GET IN THE WHEEL TO STAFF. WHEN THIS RN COMES IN THE ROOM PT STATES SHE DIDN'T KNOW SHE COULD MOVE HER LEG. EDUCATED PT ON THE PROCEDURE BEING DONE AND HER BEING ABLE TO PUT PRESSURE ON HER LEG TO PIVOT TO HER WHEELCHAIR. REMOVED IV'S AND PT ASSISTED TO HER WHEELCHAIR, PT BEGAN TO YELL "I'M FALLING" OVER AND OVER WHEN PT HADN'T EVEN MOVED. PT WOULD PUSH AGAINST THE CHAIR, BUT IN THE END WAS TRANSFERED TO HER CHAIR. DISCHARGE PACKET WAS GIVEN TO EMS.
[2020-07-29] MEDS ORDERED: CIPR500 PO (16:59)
== END 2020-07-29 15:40 | DRG 271 ==
LOC: MHTC 10:45 → ICUW 13:54 → MHTC 14:01 → ICUW 14:01 → MHTC 14:01 → ICUW 14:01
PROVIDERS: Student in an Organized Health Care Education/Training Program; ADMIT Radiology Diagnostic Radiology
PROC: B41D1ZZ Fluoroscopy of Aorta and Bilateral Lower Extremity Arteries using Low Osmolar Contrast (ICD-10-PCS; principal; 2020-07-27)
PROC: 3E03317 Introduction of Other Thrombolytic into Peripheral Vein, Percutaneous Approach (ICD-10-PCS; 2020-07-27)
PROC: 04CU3ZZ Extirpation of Matter from Left Peroneal Artery, Percutaneous Approach (ICD-10-PCS; 2020-07-28)
PROC: 047N3Z1 Dilation of Left Popliteal Artery using Drug-Coated Balloon, Percutaneous Approach (ICD-10-PCS; 2020-07-28)
PROC: B41G1ZZ Fluoroscopy of Left Lower Extremity Arteries using Low Osmolar Contrast (ICD-10-PCS; 2020-07-28)
DX: I74.3 Embolism and thrombosis of arteries of the lower extremities (principal); I50.42 Chronic combined systolic (congestive) and diastolic (congestive) heart failure; E11.51 Type 2 diabetes mellitus with diabetic peripheral angiopathy without gangrene; E11.22 Type 2 diabetes mellitus with diabetic chronic kidney disease; Z95.810 Presence of automatic (implantable) cardiac defibrillator; I25.10 Atherosclerotic heart disease of native coronary artery without angina pectoris; K21.9 Gastro-esophageal reflux disease without esophagitis; Z89.422 Acquired absence of other left toe(s); Z89.412 Acquired absence of left great toe; Z66 Do not resuscitate; Z79.82 Long term (current) use of aspirin; F32.9 Major depressive disorder, single episode, unspecified
CPT/HCPCS: 36247; 37211; 37214; 37224; 37229; 37233; 51702; 75716; 75774; 80048; 81001; 82947; 85014; 85018; 85347; 85384; 85730; 87077; 87086; 87186; 99152; 99153; A9270; A9270-GY; C1724; C1725; C1751; C1760; C1769; C1887; C1894; C2623; C9113; G0378; J1644; J2250; J2997; J3010; J7030; J7040; J7042; J7050; Q0163; Q9967; U0004

== ENCOUNTER → 2020-08-13 | Outpatient (CLI) | payer OTHER ==
[~2020-08-13] MED LIST changes: +CIPR500 PO; +XARELTO20 MG PO
[2020-08-13 16:02] LABS: Anion Gap 6 mmol/L (6-16); Blood Urea Nitrogen 28 mg/dL (8-24); Bun/Creatinine Ratio 22.2 (12.0-20.0); CO2, Blood 27 mmol/L (21-32); Calcium, Blood 9.3 mg/dL (8.5-10.1); Chloride, Blood 108 mmol/L (98-108); Creatinine, Blood 1.26 mg/dL (0.40-1.00); Glomerular Filtration Rate 44 (60-); Glucose, Blood 72 mg/dL (70-99); Phosphorus, Blood 4.1 mg/dL (2.5-4.9); Potassium, Blood 3.8 mmol/L (3.5-5.5); Sodium, Blood 141 mmol/L (136-145)
== END | disposition home or self-care (01) ==
LOC: EDSTATUS 11:55 → LAB RH 13:57
PROVIDERS: Family Medicine
DX: N18.30 Chronic kidney disease, stage 3 unspecified (principal); D63.1 Anemia in chronic kidney disease; I50.9 Heart failure, unspecified
CPT/HCPCS: 80069; 85018

== ENCOUNTER → 2020-09-09 | Outpatient (CLI) | payer OTHER ==
[2020-09-09 09:37] LABS: BASOPHILS ABSOLUTE AUTO 0.06 K/mm3 (0.00-0.23); BASOPHILS PERCENT AUTO 1 % (0-2); EOSINOPHILS ABSOLUTE AUTO 0.61 K/mm3 (0.00-0.68); EOSINOPHILS PERCENT AUTO 6 % (0-6); Hematocrit 34.6 % (33.0-51.0); Hemoglobin 10.9 g/dL (11.5-16.0); IMMATURE GRAN ABSOLUTE AUTO 0.05 K/mm3 (0.00-0.10); IMMATURE GRAN PERCENT AUTO 1 % (0-1); LYMPHOCYTES ABSOLUTE AUTO 1.56 K/mm3 (0.84-5.20); LYMPHOCYTES PERCENT AUTO 16 % (21-46); MONOCYTES ABSOLUTE AUTO 0.89 K/mm3 (0.16-1.47); MONOCYTES PERCENT AUTO 9 % (4-13); Mean Corpuscular HGB 27.3 pg (26.0-34.0); Mean Corpuscular HGB Conc 31.5 g/dL (31.5-36.5); Mean Corpuscular Volume 87 fL (80-100); Mean Platelet Volume 9.4 fL (9.1-12.4); NEUTROPHILS PERCENT AUTO 68 % (41-73); Platelet Count 394 K/mm3 (150-400); RDW Coefficient Variation 13.7 % (11.7-14.2); RDW Standard Deviation 43.5 fL (35.1-46.3); White Blood Cell Count 9.97 K/mm3 (4.00-11.30)
[2020-09-09 09:55] LABS: Albumin, Blood 3.1 g/dL (3.4-5.0); Albumin/Globulin Ratio 0.7 (0.8-1.8); Bilirubin, Total 0.3 mg/dL (0.1-1.0); Bun/Creatinine Ratio 31.6 (12.0-20.0); Calcium, Blood 9.9 mg/dL (8.5-10.1); Creatinine, Blood 1.14 mg/dL (0.40-1.00); Globulin, Blood 4.3 g/dL (2.2-4.0); Potassium, Blood 3.9 mmol/L (3.5-5.5); Total Protein, Blood 7.4 g/dL (6.4-8.2)
== END | disposition home or self-care (01) ==
LOC: LAB RH 08:31 → EDSTATUS 14:53
PROVIDERS: Family Medicine
DX: E11.40 Type 2 diabetes mellitus with diabetic neuropathy, unspecified (principal); E11.22 Type 2 diabetes mellitus with diabetic chronic kidney disease; N18.30 Chronic kidney disease, stage 3 unspecified; I50.9 Heart failure, unspecified
CPT/HCPCS: 80053; 83880; 85025

== ENCOUNTER → 2020-11-23 | Outpatient (CLI) | payer OTHER ==
[2020-11-23 11:24] LABS: Anion Gap 6 mmol/L (6-16); Blood Urea Nitrogen 26 mg/dL (8-24); Bun/Creatinine Ratio 28.4 (12.0-20.0); CO2, Blood 27 mmol/L (21-32); Calcium, Blood 9.5 mg/dL (8.5-10.1); Chloride, Blood 105 mmol/L (98-108); Creatinine, Blood 0.92 mg/dL (0.40-1.00); Glomerular Filtration Rate >60 (60-); Glucose, Blood 146 mg/dL (70-99); Potassium, Blood 4.8 mmol/L (3.5-5.5); Sodium, Blood 138 mmol/L (136-145)
== END | disposition home or self-care (01) ==
LOC: LAB RH 09:45 → EDSTATUS 11:12
PROVIDERS: Family Medicine
DX: I10 Essential (primary) hypertension (principal); E11.9 Type 2 diabetes mellitus without complications
CPT/HCPCS: 80048; 83036

== ENCOUNTER → 2020-11-26 | Outpatient (CLI) | payer OTHER | LOC: EDSTATUS 11:12 → LAB RH 11:59 | DX: N18.30 Chronic kidney disease, stage 3 unspecified (principal); Z88.2 Allergy status to sulfonamides; Z88.8 Allergy status to other drugs, medicaments and biological substances | CPT/HCPCS: 85018 ==

== ENCOUNTER → 2021-01-03 | Outpatient (CLI) | payer OTHER | END | disposition home or self-care (01) | LOC: EDSTATUS 09:34 → LAB RH 12:10 | DX: N18.30 Chronic kidney disease, stage 3 unspecified (principal) | CPT/HCPCS: 85018 ==

== ENCOUNTER → 2021-03-06 | Outpatient (CLI) | payer OTHER ==
[2021-03-06 15:00] LABS: BASOPHILS ABSOLUTE AUTO 0.05 K/mm3 (0.00-0.23); BASOPHILS PERCENT AUTO 1 % (0-2); EOSINOPHILS ABSOLUTE AUTO 0.38 K/mm3 (0.00-0.68); EOSINOPHILS PERCENT AUTO 4 % (0-6); Hematocrit 42.9 % (33.0-51.0); Hemoglobin 12.8 g/dL (11.5-16.0); IMMATURE GRAN ABSOLUTE AUTO 0.06 K/mm3 (0.00-0.10); IMMATURE GRAN PERCENT AUTO 1 % (0-1); LYMPHOCYTES ABSOLUTE AUTO 1.51 K/mm3 (0.84-5.20); LYMPHOCYTES PERCENT AUTO 15 % (21-46); MONOCYTES ABSOLUTE AUTO 0.67 K/mm3 (0.16-1.47); MONOCYTES PERCENT AUTO 7 % (4-13); Mean Corpuscular HGB 25.5 pg (26.0-34.0); Mean Corpuscular HGB Conc 29.8 g/dL (31.5-36.5); Mean Corpuscular Volume 86 fL (80-100); NEUTROPHILS PERCENT AUTO 74 % (41-73); RDW Coefficient Variation 16.5 % (11.7-14.2); RDW Standard Deviation 51.3 fL (35.1-46.3); Red Blood Cell Count 5.01 M/mm3 (3.80-5.20); White Blood Cell Count 10.37 K/mm3 (4.00-11.30)
[2021-03-06 15:17] LABS: Bun/Creatinine Ratio 33.6 (12.0-20.0); Calcium, Blood 13.6 mg/dL (8.5-10.1); Creatinine, Blood 1.37 mg/dL (0.40-1.00); Potassium, Blood 4.1 mmol/L (3.5-5.5)
[2021-03-06 15:49] LABS: Mean Platelet Volume 9.6 fL (9.1-12.4); Platelet Count 338 K/mm3 (150-400)
== END ==
LOC: EDSTATUS 09:48 → LAB RH 13:20
PROVIDERS: Internal Medicine
DX: R68.89 Other general symptoms and signs (principal); R79.89 Other specified abnormal findings of blood chemistry
CPT/HCPCS: 80048; 85025